=== PATIENT | male | born 1980 | race Caucasian/White ===

== ENCOUNTER → 2017-04-17 | Outpatient (REF) | payer OTHER ==
[~2017-04-17] MED LIST: AMIT50TA PO; DICY20TA11 PO; OMEP20CA3 PO; RANI15TA PO; TYLE167L PO; ZOFR20TA PO
[2017-04-17 21:32] LABS: MEAN CORPUSCULAR HEMOGLOBIN 28.9 pg (27.0-33.0); MEAN CORPUSCULAR HGB CONC 33.5 g/dl (32.0-36.5); MEAN CORPUSCULAR VOLUME 86.5 fl (80.0-96.0); PLATELET COUNT, AUTOMATED 219 10^3/uL (150-450); RED CELL DISTRIBUTION WIDTH 13.4 % (11.5-14.5); WHITE BLOOD COUNT 7.4 10^3/uL (4.0-10.0)
[2017-04-17 21:40] LABS: ANION GAP 6 MEQ/L (8-16); BLOOD UREA NITROGEN 16 MG/DL (7-18); CALCIUM LEVEL 8.9 MG/DL (8.5-10.1); CARBON DIOXIDE LEVEL 27 MEQ/L (21-32); CHLORIDE LEVEL 108 MEQ/L (98-107); CREATININE FOR GFR 1.14 MG/DL (0.70-1.30); GLOMERULAR FILTRATION RATE > 60.0 (>60); GLUCOSE, FASTING 91 MG/DL (70-105); POTASSIUM SERUM 3.9 MEQ/L (3.5-5.1); SODIUM LEVEL 141 MEQ/L (136-145)
== END ==
LOC: M LABDRWAD 20:53 → M LAB REF 20:53
PROVIDERS: ATTEND Podiatrist Foot & Ankle Surgery
DX: Z01.818 Encounter for other preprocedural examination (principal)

== ENCOUNTER 2017-05-09 08:42 | Day surgery (SDC) | payer OTHER ==
[~2017-05-09] VITALS: Ht 180.3 cm; Wt 100.2 kg
[~2017-05-09 08:42] MED LIST changes: +ALKATAB17 PO; +CELE1CAP4 PO; +GABA-279 PO; +TYLE500T78 PO
[2017-05-09] MEDS ORDERED: LR 1,000 ML IV ONE (09:00)
[2017-05-09] MEDS ORDERED: MIDAZOLAM INJ 2 MG/2 ML VIAL (J2250) As Ordered ONE (09:18)
[2017-05-09] MEDS ORDERED: PROPOFOL 200 MG/20 ML VIAL As Ordered ONE (09:18)
[2017-05-09] MEDS ORDERED: fentaNYL 100 MCG/2 ML INJECTION (J3010) As Ordered ONE (09:18)
[2017-05-09] MEDS ORDERED: LIDOCAINE 2% INJ 100 MG/5 ML SDV (FOR ANES.) As Ordered ONE (09:18)
[2017-05-09] MEDS ORDERED: BUPIVACAINE HCL 0.5% 30 ML VIAL As Ordered ONE (10:26)
[2017-05-09] MEDS ORDERED: LIDOCAINE 1% MDV 20ML VIAL As Ordered ONE ×2 (10:26→10:27)
[2017-05-09] MEDS ORDERED: dexameTHASONE 4 MG/ML 1ML VIAL (J1100) As Ordered ONE (10:27)
[2017-05-09] MEDS ORDERED: HYDR-3713 PO (11:46)
[2017-05-09] MEDS ORDERED: ONDANSETRON 4MG/2ML VIAL (J2405) As Ordered ONE (12:32)
[2017-05-09] MEDS ORDERED: METOCLOPRAMIDE INJ 10MG/2ML VIAL (J2765) As Ordered ONE (12:32)
[2017-05-09] MEDS ORDERED: PROPOFOL 500 MG/50 ML VIAL As Ordered ONE (12:35)
[2017-05-09] MEDS ORDERED: LIDOCAINE W/EPINEPHRINE 1% 20ML VIAL As Ordered ONE (13:38)
[2017-05-09] MEDS ORDERED: OXYMETAZOLINE NASAL SPRAY (AFRIN) As Ordered ONE (13:39)
[2017-05-09] MEDS ORDERED: METHYLENE BLUE 0.5% (5MG/ML) 10 ML AMP (PROVAYBLUE)(Q9968 PER 1MG) As Ordered ONE (13:39)
--- NOTE | 2017-05-09 14:26 | RO ---
DATE OF PROCEDURE: 05/09/2017 PREPROCEDURE DIAGNOSIS: Bilateral plantar fasciitis. POSTPROCEDURE DIAGNOSIS: Bilateral plantar fasciitis. PROCEDURE: Bilateral plantar fascial release with release of calcaneal nerve. SURGEON: Dr. Eric Burks VIROLOGY TEACHER: None. ANESTHESIA: Monitored anesthesia care. Preoperative injection of 30 mL of 1:1 mixture of 1% lidocaine plain and 1/2% Marcaine plain. ESTIMATED BLOOD LOSS: Minimal. INJECTABLES: 2 mL of Decadron/4 mg per liter and 8 mL of lidocaine plain. COMPLICATIONS: None. CONDITION: Stable. MATERIALS: #3-0 and #4-0 Vicryl and #4-0 nylon. Fausto Agustin is a 28-year-old male who presents to [facility] with complaints of chronic plantar fasciitis. He has undergone numerous conservative therapies without relief. He also complains of burning pain to his heel. He presents today for surgical correction. The patient site and side were identified and marked in preoperative holding area. Consent was reviewed and obtained. All risks, complications and alternatives to the procedure explained to the patient in detail and all questions were answered. DESCRIPTION OF PROCEDURE: The patient was brought to the operating room and placed on the operating room table in supine position. Monitored anesthesia care was delivered by the anesthesia department. Preoperative injection of 30 mL of 1:1 mixture of 1% lidocaine plain and 0.50% Marcaine plain were injected to both feet, 15 mL each. The patient received Ancef preoperatively. Tourniquets were applied to both ankles and inflated at 250 mmHg. An incision was drawn on the medial aspect of both heels and carried through with #15 blade. Dissection was carried down until the plantar fascia was identified. Bovie was used to maintain hemostasis. Using a #15 blade, the calcaneal nerve was transected at the medial margin of the calcaneus. The adhesions were freed using tenotomy scissors. The plantar fascia was identified and released approximately 2[address], leaving the lateral 1/3 intact. Additionally, adhesions were noted along the adductor hallucis muscle and these too were released. Once no further adhesions and tautness were able to be palpated, the site was irrigated with normal saline. Deep closure was performed on both sides with #3-0 and #4-0 Vicryl and skin closure with #4-0 nylon. 1 mL Decadron was injected. 8 mL of lidocaine were injected at the beginning of the case on the left foot in addition to the preoperative injection. Sterile dressings were applied. Tourniquets deflated. The patient was brought to the postanesthesia care unit (PACU) with vital signs stable and neurovascular status intact. He will be partial weight bearing in postoperative shoe. He will followup in the office in two days.
[2017-05-09 14:35] VITALS: BP 145/86
== END 2017-05-09 15:00 | disposition home or self-care (01) ==
LOC: M SDC 08:42
PROVIDERS: ATTEND Podiatrist Foot & Ankle Surgery
DX: M72.2 Plantar fascial fibromatosis (principal); K21.9 Gastro-esophageal reflux disease without esophagitis; M12.9 Arthropathy, unspecified; F41.9 Anxiety disorder, unspecified; G44.009 Cluster headache syndrome, unspecified, not intractable; R06.02 Shortness of breath; F12.90 Cannabis use, unspecified, uncomplicated; Z79.899 Other long term (current) drug therapy; Z72.0 Tobacco use
CPT/HCPCS: 28060; 64704; J0690; J1100; J2250; J2405; J2765; J3010; Q9968

== ENCOUNTER → 2017-09-13 | Outpatient (REF) | payer OTHER ==
[2017-09-13 20:01] LABS: BASO # 0.1 10^3/uL (0.0-0.2); EOS # 0.2 10^3/uL (0.0-0.50); EOS % 1.8 % (0.0-3.0); HEMATOCRIT 44.3 % (42.0-52.0); HEMOGLOBIN 15.4 g/dl (13.5-17.5); IMMATURE GRANULOCYTE % 0.5 % (0-3.0); LYMPH # 2.4 10^3/uL (1.5-4.5); LYMPH % 29.6 % (24.0-44.0); MEAN CORPUSCULAR HEMOGLOBIN 29.4 pg (27.0-33.0); MEAN CORPUSCULAR HGB CONC 34.8 g/dl (32.0-36.5); MEAN CORPUSCULAR VOLUME 84.5 fl (80.0-96.0); MONO # 0.6 10^3/uL (0.0-0.8); MONO % 7.3 % (0.0-5.0); NEUTROPHILS # 4.9 10^3/uL (1.8-7.7); NEUTROPHILS % 59.8 % (36.0-66.0); PLATELET COUNT, AUTOMATED 208 10^3/uL (150-450); RED BLOOD COUNT 5.24 10^6/uL (4.30-6.10); RED CELL DISTRIBUTION WIDTH 13.5 % (11.5-14.5); WHITE BLOOD COUNT 8.2 10^3/uL (4.0-10.0)
[2017-09-13 20:16] LABS: ALBUMIN 4.3 GM/DL (3.2-5.2); ALBUMIN/GLOBULIN RATIO 1.16 (1.00-1.93); ALKALINE PHOSPHATASE 68 U/L (45-117); ALT/SGPT 52 U/L (12-78); ANION GAP 8 MEQ/L (8-16); AST/SGOT 27 U/L (7-37); BILIRUBIN,TOTAL 0.4 MG/DL (0.2-1.0); BLOOD UREA NITROGEN 21 MG/DL (7-18); C REACTIVE PROTEIN QUANTITATIV 0.42 MG/DL (0.00-0.30); CALCIUM LEVEL 9.3 MG/DL (8.5-10.1); CARBON DIOXIDE LEVEL 27 MEQ/L (21-32); CHLORIDE LEVEL 109 MEQ/L (98-107); CPK CREATINE PHOSPHOKINASE 93 U/L (39-308); CREATININE FOR GFR 1.35 MG/DL (0.70-1.30); GLOMERULAR FILTRATION RATE > 60.0 (>60); GLUCOSE, FASTING 99 MG/DL (70-100); SODIUM LEVEL 144 MEQ/L (136-145)
[2017-09-13 20:23] LABS: ERYTHROCYTE SEDIMENTATION RATE 6 mm/hr (0-15)
[2017-09-15 14:09] LABS: ANTINUCLEAR ANTIBODIES DIRECT Negative (Negative); Lyme Disease IgG/IgM Antibodie <0.91 ISR (0.00-0.90); Lyme Disease IgM Ab Quantitati <0.80 index (0.00-0.79)
== END ==
LOC: M LAB REF 19:28
DX: G89.28 Other chronic postprocedural pain (principal)
CPT/HCPCS: 82550

== ENCOUNTER → 2018-03-27 | Outpatient (CLI) | payer OTHER ==
[2018-03-27 12:47] LABS: BASO # 0.1 10^3/uL (0.0-0.2); BASO % 1.1 % (0.0-1.0); EOS # 0.2 10^3/uL (0.0-0.50); EOS % 2.7 % (0.0-3.0); HEMATOCRIT 45.2 % (42.0-52.0); HEMOGLOBIN 15.5 g/dl (13.5-17.5); IMMATURE GRANULOCYTE % 0.2 % (0-3.0); LYMPH # 2.7 10^3/uL (1.5-4.5); MEAN CORPUSCULAR HEMOGLOBIN 29.6 pg (27.0-33.0); MEAN CORPUSCULAR HGB CONC 34.3 g/dl (32.0-36.5); MEAN CORPUSCULAR VOLUME 86.3 fl (80.0-96.0); MONO # 0.5 10^3/uL (0.0-0.8); MONO % 6.2 % (0.0-5.0); NEUTROPHILS # 4.5 10^3/uL (1.8-7.7); NEUTROPHILS % 55.8 % (36.0-66.0); PLATELET COUNT, AUTOMATED 192 10^3/uL (150-450); RED BLOOD COUNT 5.24 10^6/uL (4.30-6.10); WHITE BLOOD COUNT 8.1 10^3/uL (4.0-10.0)
[2018-03-27 12:57] LABS: ALBUMIN 4.1 GM/DL (3.2-5.2); ALBUMIN/GLOBULIN RATIO 1.37 (1.00-1.93); ALKALINE PHOSPHATASE 68 U/L (45-117); ALT/SGPT 54 U/L (12-78); ANION GAP 6 MEQ/L (8-16); AST/SGOT 24 U/L (7-37); BILIRUBIN,TOTAL 0.4 MG/DL (0.2-1.0); BLOOD UREA NITROGEN 19 MG/DL (7-18); C REACTIVE PROTEIN QUANTITATIV 0.34 MG/DL (0.00-0.30); CALCIUM LEVEL 9.4 MG/DL (8.5-10.1); CARBON DIOXIDE LEVEL 26 MEQ/L (21-32); CHLORIDE LEVEL 107 MEQ/L (98-107); COMPLEMENT C3 153 MG/DL (90-180); CREATININE FOR GFR 1.17 MG/DL (0.70-1.30); GLOMERULAR FILTRATION RATE > 60.0 (>60); GLUCOSE, FASTING 108 MG/DL (70-100); POTASSIUM SERUM 4.2 MEQ/L (3.5-5.1); RHEUMATOID FACTOR QUANT < 10.0 IU/ML (<15.0); SODIUM LEVEL 139 MEQ/L (136-145); TOTAL PROTEIN 7.1 GM/DL (6.4-8.2)
[2018-03-29 00:10] LABS: ANA (HEP2) Negative (.); SSA SJOGRENS A <0.2 AI (0.0-0.9); SSB SJOGRENS B <0.2 AI (0.0-0.9)
== END ==
LOC: M ADAMS 11:03
DX: M79.7 Fibromyalgia (principal); M25.552 Pain in left hip
CPT/HCPCS: 80053

== ENCOUNTER → 2018-04-12 | Outpatient (CLI) | payer OTHER | LOC: M PAIN 08:45 | DX: M54.5 Low back pain (principal); G89.29 Other chronic pain; M79.7 Fibromyalgia; M72.2 Plantar fascial fibromatosis; F41.9 Anxiety disorder, unspecified; K21.9 Gastro-esophageal reflux disease without esophagitis; F17.210 Nicotine dependence, cigarettes, uncomplicated; Z79.899 Other long term (current) drug therapy; Z86.69 Personal history of other diseases of the nervous system and sense organs | CPT/HCPCS: G0463 ==

== ENCOUNTER → 2018-05-02 | Outpatient (CLI) | payer OTHER | LOC: M RAD 13:06 | DX: M51.26 Other intervertebral disc displacement, lumbar region (principal) | CPT/HCPCS: 72148 ==

== ENCOUNTER → 2018-06-13 | Outpatient (CLI) | payer OTHER ==
[~2018-06-13] MED LIST changes: +BUPIVACAINE HCL 0.25% 10 ML VIAL As Ordered ONE; +BUPIVACAINE HCL 0.25% 30 ML VIAL As Ordered ONE; +GABA-1171 PO; -GABA-279 PO; +HYDR-3713 PO; +TRIAMCINOLONE ACETONIDE SUSP 40 MG/ML VIAL (J3301) As Ordered ONE; -ZOFR20TA PO; +ZOFR4TAB16 PO; +diazePAM 5 MG TAB As Ordered ONE; +oxyCODONE 5MG TAB As Ordered ONE
--- NOTE | 2018-07-01 00:45 | ECWPNPC ---
PATIENT NAME: SURESH COLLAZO : 1980 GENDER: MALE VISIT DATE: 06/13/2018 DISCHARGE DATE: 06/13/18 1523 VISIT LOCKED DATE TIME: PHYSICIAN: CHANDA PULLIAM MD RESOURCE: CHANDA PULLIAM MD HISTORY OF PRESENT ILLNESS HISTORY OF PRESENT ILLNESS: PAIN THE PATIENT DESCRIBES THE PAIN... FALL RISK SCREENING: SCREENING :TWO OR MORE FALLS WITHOUT INJURY IN THE PAST YEAR CURRENT MEDICATIONS TAKING WELLBUTRIN XL 150 MG TABLET EXTENDED RELEASE 24 HOUR 1 TABLET IN THE MORNING ORALLY ONCE A DAY, NOTES: 5 DAYS AGO TAKING GABAPENTIN 600 MG TABLET 1 TABLET ORALLY BEFORE BEDTIME, NOTES: 5 DAYS AGO TAKING SKELAXIN 800 MG TABLET 1 TABLET ORALLY THREE TIMES A DAY, NOTES: 2 DAYS AGO TAKING CELECOXIB 200 MG CAPSULE 1 CAPSULE WITH FOOD ORALLY BID, NOTES: 5DAYS AGO TAKING ANTACID 500 MG TABLET CHEWABLE 1 TABLET ORALLY ONCE A DAY, NOTES: NONE RECENTLY TAKING ACETAMINOPHEN 325 MG TABLET 2 TABLETS NEEDED ORALLY FOUR TIMES DAILY NEEDED, NOTES: 2 DAYS AGO TAKING LOUIE-SELTZER EXTRA STRENGTH 500 MG TABLET EFFERVESCENT 1 TABLET NEEDED ORALLY EVERY 6 HRS, NOTES: 06/12/17@0800 NOT-TAKING SILDENAFIL CITRATE 50 MG TABLET 1 TABLET NEEDED ORALLY ONCE A DAY, NOTES: NONE RECENTLY DISCONTINUED VENTOLIN HFA 108 (90 BASE) MCG/ACT AEROSOL SOLUTION 2 PUFFS NEEDED INHALATION EVERY 6 HRS DISCONTINUED OMEPRAZOLE 20 MG CAPSULE DELAYED RELEASE 1 CAPSULE ORALLY ONCE A DAY DISCONTINUED ELAVIL 25 MG TABLET 1 TAB(S) ORAL DAILY MEDICATION LIST REVIEWED AND RECONCILED WITH THE PATIENT PAST MEDICAL HISTORY FIBROMYALGIA GERD ANXIETY IRRITABLE BOWEL SYNDROME NEUROPATHY PLANTAR FASCITIS CLUSTER HEADACHES ALLERGIES N.K.D.A. SURGICAL HISTORY PLANTAR FASCITIS RELEASE 04/2017 FAMILY HISTORY FATHER: ALIVE, DIAGNOSED WITH DIABETES, HYPERTENSION MOTHER: ALIVE, BREAST CANCER, DIAGNOSED WITH CANCER 4 BROTHER(S) , 1 SISTER(S) - HEALTHY. 3 SON(S) - HEALTHY. NO KNOWN FAMILY HISTORY OF ANY UROLOGICALLY RELATED DISEASES/CANCERS. SOCIAL HISTORY GENERAL: TOBACCO USE ARE YOU A:CURRENT SMOKER ARE YOU INTERESTED IN QUITTING?THINKING ABOUT QUITTING WORKING WITH PCP TO TRY AND QUIT. DECLINED INFORMATION ON STOP SMOKING CLASSES. 04/12/18 0962 JS COUNSELED THE PATIENT ON SMOKING CESSATION, EDUCATION [id number]/17/2019 HOW MANY CIGARETTES A DAY DO YOU SMOKE?11-20 HOW SOON AFTER YOU WAKE UP DO YOU SMOKE YOUR FIRST CIGARETTE?AFTER 60 MIN HOW OFTEN DO YOU SMOKE CIGARETTES?EVERY DAY PATIENT COUNSELED ON THE DANGERS OF TOBACCO USE AND URGED TO QUIT:06/13/2018 ALCOHOL SCREENING DID YOU HAVE A DRINK CONTAINING ALCOHOL IN THE PAST YEAR?NO POINTS0 INTERPRETATIONNEGATIVE RECREATIONAL DRUG USE MARIJUANA USE 3 DAYS WEEK. CAFFEINE 3-4 SODAS DAILY. SEXUAL HX HAD SEX IN THE LAST 12 MONTHS (VAGINAL, ORAL, OR ANAL)?YES WITHWOMEN ONLY USE PROTECTION?NO HAVE YOU EVER HAD AN STD?NO SABIANIST NO CONFUCIANISM BELIEFS THAT WOULD IMPACT HEALTH CARE. LANGUAGE ARABIC. DOMESTIC VIOLENCE NONE. OCCUPATION: UNEMPLOYED. DIET: REGULAR. EXERCISE: NO REGULAR EXERCISE. MARITAL STATUS: . PAIN CLINIC PFS, CLERGY, PUBLIC HEALTH REFERRALS HAS THE PATIENT BEEN EDUCATED REGARDING HIS/HER PLAN OF CARE?YES HAS THE PATIENT BEEN EDUCATED REGARDING PAIN, THE RISK FOR PAIN, THE IMPORTANCE OF EFFECTIVE PAIN MANAGEMENT, AND THE PAIN ASSESSMENT PROCESS?YES ADVANCE DIRECTIVE ADVANCE DIRECTIVE DISCUSSED WITH PATIENT:YES DECLINED HCP INFORMATION. 04/12/18925 LILLIE HCP INFORMATION GIVEN TO PT. REVIEWED WITH PATIENT 04/12/18925 . HOSPITALIZATION/MAJOR DIAGNOSTIC PROCEDURE NO HOSPITALIZATION HISTORY. REVIEW OF SYSTEMS REVIEWED BY: PROVIDER: . CONSTITUTIONAL: ANY CHANGE IN YOUR MEDICAL CONDITION? NO . CHILLS NO . FEVER NO . INFECTION: DO YOU HAVE NEW INFECTIONS? NO . DO YOU HAVE HISTORY OF MRSA? NO . MUSCULOSKELETAL: ANY NEW PATTERNS OF PAIN OR NUMBNESS? YES SHOULDERS AND BUTTOCKS . GASTROENTEROLOGY: ANY NEW CHANGE IN BOWEL CONTROL? NO . GENITOURINARY: ANY NEW CHANGE IN BLADDER CONTROL? NO . IS THERE A CHANCE YOU COULD BE ? NO . HEMATOLOGY/LYMPH: DO YOU TAKE ANY BLOOD THINNERS? (FOR EXAMPLE- COUMADIN, PLAVIX, AGGRENOX, PLATEL, PRADAXA, OR XARELTO) NO . WHEN WAS YOUR LAST DOSE? DATE: TIME: . NEUROLOGY: HAVE YOU FALLEN IN THE PAST 12 MONTHS? YES . ANY NEW EXTREMITY NUMBNESS OR WEAKNESS? YES . CARDIOLOGY: DO YOU HAVE A PACEMAKER OR DEFIBRILLATOR? NO . RESPIRATORY: HAVE YOU BEEN SICK IN THE PAST WEEK? NO . FEVER NO . FLU LIKE SYMPTOMS? NO . COUGH NO . INTEGUMENTARY: DO YOU HAVE ANY RASHES OR OPEN SORES? NO . ALLERGIC/IMMUNO: ARE YOU ALLERGIC TO IV DYE? NO . ANY NEW ALLERGIES? NO . PSYCHIATRIC: DO YOU HAVE THOUGHTS OF HURTING YOURSELF OR SOMEONE ELSE? NO . ARE YOU ABUSED, NEGLECTED, OR IN AN UNSAFE ENVIRONMENT? NO . ENDOCRINOLOGY: ARE YOU DIABETIC? NO . OTHER: DO YOU NEED ANY PRESCRIPTIONS? NO . IF YES, PLEASE LIST: ____ . ANY NEW PROBLEMS WITH YOUR MEDICATIONS? NO . WHEN DID YOU LAST DRINK? 1000 . WHAT DID YOU LAST DRINK? ____WATER,TEA . NAME OF PERSON DRIVING YOU HOME? ____TRICIA . DO YOU HAVE ANY OTHER QUESTIONS OR CONCERNS YES NEW PAIN IN BOTH SHOULDERS ANDBOTH LEGS BELOW THE BUTTOCKS . VITAL SIGNS WT 225.8 LBS, HT 5'11", BMI 31.49 INDEX, BP 141/73 MM HG, HR 100 /MIN, RR 18 /MIN, TEMP 98.6 F, OXYGEN SAT % 95%, NA INITIALS AW 1147. ASSESSMENTS MYALGIA, OTHER SITE - M79.18 (PRIMARY) PROCEDURES PN TRIGGER POINT INJECTION WITH STEROIDS PRE PROCEDURE DIAGNOSIS 1. MYALGIA 2. PAIN AT BILATERAL THORACIC AREA POST PROCEDURE DIAGNOSIS 1. MYALGIA 2. PAIN AT BILATERAL THORACIC AREA PROCEDURE TRIGGER POINT INJECTION AT BILATERAL THORACIC AREA SURGEON DR. CHANDA PULLIAM E BUSINESS MANAGER NONE ANESTHESIA LOCAL PRE PROCEDURE NOTE THE PATIENT HAS A HISTORY OF CHRONIC PAIN AT THE RIGHT AND LEFT THORACIC AREA. I EVALUATE THE PATIENT AND REVIEWED THE CHART. THERE IS EVIDENCE OF BANDS OF TISSUE WITH RESTRICTION OF MOVEMENT AND PRESENCE OF TRIGGER POINT AT THE AFFECTED AREA. I WENT OVER THE RISKS, ALTERNATIVES, AND BENEFITS ASSOCIATED WITH THIS PROCEDURE. THE PATIENT WOULD LIKE TO PROCEED AND GIVE CONSENT TO PERFORMED THE PROCEDURE. THE PATIENT DENIES UNEXPLAINABLE WEIGHT LOSS, FEVER, CHILLS, OR NEW CHANGES IN URINARY OR BOWEL CONTROL DESCRIPTION OF PROCEDURE THE PATIENT WAS BROUGHT TO THE PROCEDURE ROOM AND PLACED IN THE SITTING POSITION. THE AREA WAS CLEANED WITH ALCOHOL. THE PROCEDURE WAS DONE USING ASEPTIC STERILE TECHNIQUE. I CHECKED LATERALITY AND THE LEVEL WHERE THE PROCEDURE WAS GOING TO BE PERFORMED WITH THE PATIENT AND THE SUPPORTING STAFF AT THE MOMENT OF THE TIME OUT IN THE PROCEDURE ROOM. USING A 25-GAUGE NEEDLE, TRIGGER POINTS WERE INJECTED AT THE RIGHT AND LEFT THORACIC AREA WITH A TOTAL OF 40 ML OF BUPIVACAINE 0.25% AND KENALOG 40 MG. THERE WAS NO EVIDENCE OF BLOOD, PARESTHESIA OR CEREBROSPINAL FLUID DURING THE PROCEDURE. THE PATIENT WAS SENT TO THE RECOVERY ROOM. THE PATIENT WAS MOVING THE EXTREMITIES AND DOING WELL. THERE WAS NO COMPLICATION DURING THE PROCEDURE POST PROCEDURE NOTE THE PATIENT WILL BE SEEN IN A FOLLOW UP IN THE NEXT FEW WEEKS. INSTRUCTIONS WERE GIVEN, QUESTIONS WERE ANSWERED, AND THE PATIENT EXPRESSED UNDERSTANDING AND AGREES WITH THE PLAN. I, MARIPOSA LU, DOCUMENTED THE ABOVE INFORMATION ACTING A SCRIBE FOR DR. PULLIAM. I HAVE REVIEWED THE ABOVE DOCUMENT, WRITTEN BY MARIPOSA HAMPTONIBCarlos AND I VERIFY THAT IT IS ACCURATE. PROCEDURE CODES 80142 INJ TRIGGER POINT / [facility] DISPOSITION & COMMUNICATION FOLLOW UP 3 WEEKS ELECTRONICALLY SIGNED BY CHANDA PULLIAM MD, MD ON 06/30/2018 AT 05:48 PM EST DISCLAIMER : THIS IS A VISIT SUMMARY EXTRACTED FROM THE [employer] CHART. IT IS NOT A COPY OF THE [employer] PROGRESS NOTE. MARTHA
== END ==
LOC: M PAIN 11:45
PROVIDERS: ATTEND Anesthesiology
DX: M79.18 Myalgia, other site (principal); M54.6 Pain in thoracic spine; F41.9 Anxiety disorder, unspecified; F17.210 Nicotine dependence, cigarettes, uncomplicated; Z79.899 Other long term (current) drug therapy
CPT/HCPCS: 20552; J3301

== ENCOUNTER → 2018-08-09 | Outpatient (CLI) | payer OTHER ==
[~2018-08-09] MED LIST changes: -BUPIVACAINE HCL 0.25% 10 ML VIAL As Ordered ONE; -BUPIVACAINE HCL 0.25% 30 ML VIAL As Ordered ONE; -TRIAMCINOLONE ACETONIDE SUSP 40 MG/ML VIAL (J3301) As Ordered ONE; -diazePAM 5 MG TAB As Ordered ONE; -oxyCODONE 5MG TAB As Ordered ONE
--- NOTE | 2018-08-23 01:42 | ECWPNPC ---
PATIENT NAME: SURESH COLLAZO : 1980 GENDER: MALE VISIT DATE: 08/09/2018 DISCHARGE DATE: 08/09/18 1502 VISIT LOCKED DATE TIME: PHYSICIAN: CHANDA PULLIAM MD RESOURCE: CHANDA PULLIAM MD REASON FOR APPOINTMENT 1. POST TPI HISTORY OF PRESENT ILLNESS HISTORY OF PRESENT ILLNESS: PAIN THE PATIENT DESCRIBES THE PAIN... 37 YEAR OLD MALE PATIENT WITH A HISTORY OF CHRONIC THORACIC PAIN. THE PATIENT DESCRIBES THE PAIN SEVERE, ACHING, SORE, TENDER, SHARP, STABBING, AND CONTINUOUS WITH A PAIN SCORE OF 5-8/10 DEPENDING ON PHYSICAL ACTIVITY. THE PATIENT SAYS THAT HIS PAIN STARTS IN HIS THORACIC AREA AND RADIATES AROUND TO HIS LEFT SIDE AND LEFT ARM. THE PATIENT SAYS THAT HE SOMETIMES HAS DIFFICULTY BREATHING DUE TO THIS PAIN. THE PATIENT WAS HERE FOR A TRIGGER POINT INJECTION ON 06/13/2018 AND REPORTS HAVING MORE THAN 50% PAIN RELIEF FOR ALMOST 2 MONTHS. PATIENT DENIES UNEXPLAINABLE WEIGHT LOSS, FEVER, CHILLS, NEW CHANGES ON HIS URINARY OR BOWEL CONTROL. FALL RISK SCREENING: SCREENING : NO FALLS IN THE PAST YEAR. CURRENT MEDICATIONS TAKING WELLBUTRIN XL 150 MG TABLET EXTENDED RELEASE 24 HOUR 1 TABLET IN THE MORNING ORALLY ONCE A DAY TAKING GABAPENTIN 600 MG TABLET 1 TABLET ORALLY BEFORE BEDTIME TAKING SKELAXIN 800 MG TABLET 1 TABLET ORALLY THREE TIMES A DAY TAKING CELECOXIB 200 MG CAPSULE 1 CAPSULE WITH FOOD ORALLY BID TAKING ANTACID 500 MG TABLET CHEWABLE 1 TABLET ORALLY ONCE A DAY TAKING ACETAMINOPHEN 325 MG TABLET 2 TABLETS NEEDED ORALLY FOUR TIMES DAILY NEEDED TAKING LOUIE-SELTZER EXTRA STRENGTH 500 MG TABLET EFFERVESCENT 1 TABLET NEEDED ORALLY EVERY 6 HRS TAKING NAPROXEN 500 MG TABLET 1 TABLET WITH FOOD OR MILK NEEDED ORALLY EVERY 12 HRS TAKING MELOXICAM 15 MG TABLET 1 TABLET ORALLY ONCE A DAY TAKING RANITIDINE HCL 75 MG TABLET 1 TABLET NEEDED ORALLY ONCE A DAY NOT-TAKING SILDENAFIL CITRATE 50 MG TABLET 1 TABLET NEEDED ORALLY ONCE A DAY, NOTES: NONE RECENTLY MEDICATION LIST REVIEWED AND RECONCILED WITH THE PATIENT PAST MEDICAL HISTORY FIBROMYALGIA GERD ANXIETY IRRITABLE BOWEL SYNDROME NEUROPATHY PLANTAR FASCITIS CLUSTER HEADACHES ALLERGIES N.K.D.A. SURGICAL HISTORY PLANTAR FASCITIS RELEASE 04/2017 FAMILY HISTORY FATHER: ALIVE, DIAGNOSED WITH DIABETES, HYPERTENSION MOTHER: ALIVE, BREAST CANCER, LUNG CANCER, CANCER 4 BROTHER(S) , 1 SISTER(S) - HEALTHY. 3 SON(S) - HEALTHY. NO KNOWN FAMILY HISTORY OF ANY UROLOGICALLY RELATED DISEASES/CANCERS. MATERNAL AUNTS (2) LUPUS. SOCIAL HISTORY GENERAL: TOBACCO USE ARE YOU A:CURRENT SMOKER ARE YOU INTERESTED IN QUITTING?THINKING ABOUT QUITTING WORKING WITH PCP TO TRY AND QUIT. DECLINED INFORMATION ON STOP SMOKING CLASSES. 04/12/18 0948 JS COUNSELED THE PATIENT ON SMOKING CESSATION, EDUCATION [id number]/17/2019 HOW MANY CIGARETTES A DAY DO YOU SMOKE?11-20 HOW SOON AFTER YOU WAKE UP DO YOU SMOKE YOUR FIRST CIGARETTE?AFTER 60 MIN HOW OFTEN DO YOU SMOKE CIGARETTES?EVERY DAY PATIENT COUNSELED ON THE DANGERS OF TOBACCO USE AND URGED TO QUIT:06/13/2018 LATEX QUESTIONNAIRE LATEX ALLERGY : HAVE YOU EVER DEVELOPED ANY TYPE OF REACTION AFTER HANDLING LATEX PRODUCTS SUCH RUBBER GLOVES, CONDOMS, DIAPHRAGMS, BALLOONS, SOCKS, OR UNDERWEAR?NO LATEX ALLERGY : HAVE YOU EVER DEVELOPED ANY TYPE OF REACTION DURING OR AFTER DENTAL APPOINTMENT, VAGINAL/RECTAL EXAMINATION, SURGICAL PROCEDURE, OR ANY OTHER EXPOSURE?NO LATEX RISK : HAVE YOU EVER HAD ANY DIFFICULTY BREATHING OR HIVES AFTER EATING OR HANDLING ANY FRUITS, OR VEGETABLES; SUCH KIWI, BANANAS, STONE FRUITS, OR CHESTNUTSNO LATEX RISK : DO YOU HAVE A PREVIOUS PERSONAL HISTORY OF MORE THAN NINE SURGERIES, SPINA BIFIDA, OR REPEATED CATHERTIZATIONS? NO LATEX RISK : ARE YOU FREQUENTLY EXPOSED TO LATEX PRODUCTS IN YOUR OCCUPATION?NO DATE ASKED : 07/30/2018 ALCOHOL SCREENING DID YOU HAVE A DRINK CONTAINING ALCOHOL IN THE PAST YEAR?NO POINTS0 INTERPRETATIONNEGATIVE RECREATIONAL DRUG USE DRUG USE? PATIENT STATES HE STOPPED SMOKING MARIJUANA 4-6 MONTHS AGO CAFFEINE 3-4 SODAS DAILY. SEXUAL HX HAD SEX IN THE LAST 12 MONTHS (VAGINAL, ORAL, OR ANAL)?YES WITHWOMEN ONLY USE PROTECTION?NO HAVE YOU EVER HAD AN STD?NO ALEVISM NO RASTAFARI BELIEFS THAT WOULD IMPACT HEALTH CARE. LANGUAGE INDONESIAN. DOMESTIC VIOLENCE NONE. OCCUPATION: UNEMPLOYED. DIET: REGULAR. EXERCISE: NO REGULAR EXERCISE. MARITAL STATUS: . PAIN CLINIC PFS, CLERGY, PUBLIC HEALTH REFERRALS HAS THE PATIENT BEEN EDUCATED REGARDING HIS/HER PLAN OF CARE?YES HAS THE PATIENT BEEN EDUCATED REGARDING PAIN, THE RISK FOR PAIN, THE IMPORTANCE OF EFFECTIVE PAIN MANAGEMENT, AND THE PAIN ASSESSMENT PROCESS?YES ADVANCE DIRECTIVE ADVANCE DIRECTIVE DISCUSSED WITH PATIENT:YES DECLINED HCP INFORMATION AND ASSISTANCE WITH HCP FORM. 08/09/18 REVIEWED WITH PATIENT 04/12/18 2119 JSREVIEWED WITH PATIENT 08/09/18 7090 BV. HOSPITALIZATION/MAJOR DIAGNOSTIC PROCEDURE NO HOSPITALIZATION HISTORY. REVIEW OF SYSTEMS REVIEWED BY: PROVIDER: CHANDA PULLIAM MD . CONSTITUTIONAL: ANY CHANGE IN YOUR MEDICAL CONDITION? NO . CHILLS NO . FEVER NO . INFECTION: DO YOU HAVE NEW INFECTIONS? NO . DO YOU HAVE HISTORY OF MRSA? NO . MUSCULOSKELETAL: ANY NEW PATTERNS OF PAIN OR NUMBNESS? YES, PT STATES HE HAD CHEST PAIN YESTERDAY THAT SEEMS TO RESOLVED OVERNIGHT, HOWEVER THIS MORNING WOKE UP WITH INTENSE MID-UPPER BACK PAIN AND LEFT SHOULDER. PT HAS COMPLAINED OF NEW NUMBNESS/TINGLING IN LEFT HAND. STATES NUMBNESS IS INTERMITTENT. . GASTROENTEROLOGY: ANY NEW CHANGE IN BOWEL CONTROL? NO . GENITOURINARY: ANY NEW CHANGE IN BLADDER CONTROL? NO . IS THERE A CHANCE YOU COULD BE ? NO . HEMATOLOGY/LYMPH: DO YOU TAKE ANY BLOOD THINNERS? (FOR EXAMPLE- COUMADIN, PLAVIX, AGGRENOX, PLATEL, PRADAXA, OR XARELTO) NO . WHEN WAS YOUR LAST DOSE? DATE: TIME: . NEUROLOGY: HAVE YOU FALLEN IN THE PAST 12 MONTHS? NO . ANY NEW EXTREMITY NUMBNESS OR WEAKNESS? NO . CARDIOLOGY: DO YOU HAVE A PACEMAKER OR DEFIBRILLATOR? NO . RESPIRATORY: HAVE YOU BEEN SICK IN THE PAST WEEK? NO . FEVER NO . FLU LIKE SYMPTOMS? NO . COUGH NO . INTEGUMENTARY: DO YOU HAVE ANY RASHES OR OPEN SORES? NO . ALLERGIC/IMMUNO: ARE YOU ALLERGIC TO IV DYE? NO . ANY NEW ALLERGIES? NO . PSYCHIATRIC: DO YOU HAVE THOUGHTS OF HURTING YOURSELF OR SOMEONE ELSE? NO . ARE YOU ABUSED, NEGLECTED, OR IN AN UNSAFE ENVIRONMENT? NO . ENDOCRINOLOGY: ARE YOU DIABETIC? NO . OTHER: DO YOU NEED ANY PRESCRIPTIONS? NO . IF YES, PLEASE LIST: ____ . ANY NEW PROBLEMS WITH YOUR MEDICATIONS? NO . WHEN DID YOU LAST EAT? ____ . WHEN DID YOU LAST DRINK? ____ . WHAT DID YOU LAST DRINK? ____ . NAME OF PERSON DRIVING YOU HOME? ____ . DO YOU HAVE ANY OTHER QUESTIONS OR CONCERNS NO . VITAL SIGNS WT 228.2 LBS, HT 71 IN, BMI 31.82 INDEX, BP 116/93 MM HG, HR 93 /MIN, RR 18 /MIN, TEMP 97.0 F, OXYGEN SAT % 95%, NA INITIALS SC 13:13, REVIEWED BY: BV. EXAMINATION GENERAL EXAMINATION: PATIENT IS ALERT O X 3 AND COOPERATIVE. TENDERNESS IN THE THORACIC AREA. PRESENCE OF TRIGGER POINTS AND BANDS OF TISSUE WITH RESTRICTION OF MOVEMENT OF THE BACK. ASSESSMENTS MYALGIA, OTHER SITE - M79.18 (PRIMARY) R/O THORACIC RADICULOPATHYR/O CERVICAL RADICULOPATHY. TREATMENT MYALGIA, OTHER SITE CLINICAL NOTES: WE DISCUSSED SEVERAL ISSUES WITH MR. COLLAZO'S PAIN MANAGEMENT CASE. DUE TO THE TRIGGER POINTS, BANDS OF TISSUE, AND RESTRICTION OF MOVEMENT, I WOULD LIKE TO MOVE FORWARD WITH A TRIGGER POINT INJECTION AT THIS TIME. WE DISCUSSED THE BENEFITS, RISKS, AND ALTERNATIVES OF THE INJECTION AND THE PATIENT WOULD LIKE TO PROCEED. I WILL ALSO START THE PATIENT ON TIZANIDINE AND TORADOL TO AID IN PAIN RELIEF. I WILL ORDER A THORACIC AND CERVICAL MRI DUE TO THE PATIENT HAVING RADICULAR SYMPTOMS TO HIS LEFT SIDE AND DOWN HIS LEFT ARM. I WILL ALSO REFER THE PATIENT TO RHEUMATOLOGY AND NEUROLOGY FOR FURTHER EVALUATION. THE PATIENT WILL FOLLOW UP A FEW WEEKS AFTER THE INJECTION. INSTRUCTIONS WERE GIVEN, QUESTIONS WERE ANSWERED, PATIENT REPORTS UNDERSTANDING AND AGREES WITH THE PLAN. I, MARIPOSA LU, DOCUMENTED THE ABOVE INFORMATION ACTING A SCRIBE FOR DR. PULLIAM. I HAVE REVIEWED THE ABOVE DOCUMENT, WRITTEN BY MARIPOSA TERRELL AND I VERIFY THAT IT IS ACCURATE. . OTHERS START TIZANIDINE HCL TABLET, 2 MG, 1 TABLET NEEDED, ORALLY FOR SPASMS AND PAIN, THREE TIMES A DAY MDD3, 7 DAY(S), 21, REFILLS 0 START KETOROLAC TROMETHAMINE TABLET, 10 MG, 1 TABLET WITH FOOD OR MILK NEEDED, ORALLY FOR PAIN, EVERY 8 HRS MDD3, 5 DAY(S), 15, REFILLS 0 PREVENTIVE MEDICINE PAIN CLINIC TEACHING: MEDICATIONS PT GIVEN WRITTEN AND VERBAL EDUCATION ON STARTING TIZANIDINE AND TORADOL. PT VERBALIZES UNDERSTANDING OF ALL EDUCATION. MARCO ORNELAS 08/09/2018 3:03:59 PM > . PROCEDURE TEACHING PT GIVEN WRITTEN AND VERBAL PRE-PROCEDURE INSTRUCTIONS. PT VERBALIZES UNDERSTANDING OF ALL INSTRUCTIONS. MARCO ORNELAS 08/09/2018 3:04:25 PM > . PROCEDURE CODES FA211 ESTABILISHED PATIENT [facility] CHARGE [id number] CURRENT MEDS W/DOSAGES DOCUMENTED [id number] PAIN ASSESS POS TOOL F/U PLAN DOC DISPOSITION & COMMUNICATION FOLLOW UP 3 WEEKS ELECTRONICALLY SIGNED BY CHANDA PULLIAM MD, MD ON 08/22/2018 AT 09:20 AM EDT DISCLAIMER : THIS IS A VISIT SUMMARY EXTRACTED FROM THE [employer] CHART. IT IS NOT A COPY OF THE [employer] PROGRESS NOTE. MTDD
== END ==
LOC: M PAIN 12:45
PROVIDERS: ATTEND Anesthesiology
DX: M79.18 Myalgia, other site (principal); M54.6 Pain in thoracic spine; F41.9 Anxiety disorder, unspecified; F17.210 Nicotine dependence, cigarettes, uncomplicated; Z79.899 Other long term (current) drug therapy; Z86.69 Personal history of other diseases of the nervous system and sense organs

== ENCOUNTER → 2018-09-04 | Outpatient (CLI) | payer OTHER ==
--- NOTE | 2018-09-23 00:38 | ECWPNPC ---
PATIENT NAME: SURESH COLLAZO : 1980 GENDER: MALE VISIT DATE: 09/04/2018 DISCHARGE DATE: 09/04/18928 VISIT LOCKED DATE TIME: PHYSICIAN: CHANDA PULLIAM MD RESOURCE: CHANDA PULLIAM MD REASON FOR APPOINTMENT 1. THORACIC AND SHOULDER HISTORY OF PRESENT ILLNESS HISTORY OF PRESENT ILLNESS: PAIN THE PATIENT DESCRIBES THE PAIN... 37 YEAR OLD MALE PATIENT WITH A HISTORY OF CHRONIC THORACIC PAIN. THE PATIENT DESCRIBES THE PAIN ACHING, SHARP, STABBING, SHOOTING, AND CONTINUOUS WITH A PAIN SCORE OF 6-9/10 DEPENDING ON PHYSICAL ACTIVITY. THE PATIENT SAYS HIS PAIN IS IN HIS THORACIC AREA WELL THE NECK AND LEFT SHOULDER. THE PATIENT SAYS HE HAS HAD THIS PAIN FOR MANY YEARS. THE PATIENT SAYS HE HAS DIFFICULTY DOING DAILY ACTIVITIES SUCH COOKING AND CLEANING DUE TO THIS PAIN. THE PATIENT HAS RECEIVED TRIGGER POINT INJECTIONS IN THE PAST AND SAYS THAT THEY HAVE HELPED. THE PATIENT IS CURRENTLY USING TORADOL AND TIZANIDINE TO AID IN PAIN RELIEF. THE PATIENT SAYS THAT HE IS GOING TO BE TRAVELING FOR A WEEK THIS SUMMER AND IS CONCERNED ABOUT AN INCREASE IN PAIN FOLLOWING THE TRAVEL. PATIENT DENIES UNEXPLAINABLE WEIGHT LOSS, FEVER, CHILLS, NEW CHANGES ON HIS URINARY OR BOWEL CONTROL. FALL RISK SCREENING: SCREENING :NO FALLS REPORTED IN THE LAST YEAR CURRENT MEDICATIONS TAKING TIZANIDINE HCL 2 MG TABLET 1 TABLET NEEDED ORALLY FOR SPASMS AND PAIN THREE TIMES A DAY MDD3 TAKING KETOROLAC TROMETHAMINE 10 MG TABLET 1 TABLET WITH FOOD OR MILK NEEDED ORALLY FOR PAIN EVERY 8 HRS MDD3 TAKING WELLBUTRIN XL 150 MG TABLET EXTENDED RELEASE 24 HOUR 1 TABLET IN THE MORNING ORALLY ONCE A DAY TAKING GABAPENTIN 600 MG TABLET 1 TABLET ORALLY BEFORE BEDTIME TAKING CELECOXIB 200 MG CAPSULE 1 CAPSULE WITH FOOD ORALLY BID TAKING ANTACID 500 MG TABLET CHEWABLE 1 TABLET ORALLY ONCE A DAY, NOTES: NEEDED TAKING ACETAMINOPHEN 325 MG TABLET 2 TABLETS NEEDED ORALLY FOUR TIMES DAILY NEEDED TAKING LOUIE-SELTZER EXTRA STRENGTH 500 MG TABLET EFFERVESCENT 1 TABLET NEEDED ORALLY EVERY 6 HRS, NOTES: NEEDED TAKING NAPROXEN 500 MG TABLET 1 TABLET WITH FOOD OR MILK NEEDED ORALLY EVERY 12 HRS TAKING MELOXICAM 15 MG TABLET 1 TABLET ORALLY ONCE A DAY TAKING RANITIDINE HCL 75 MG TABLET 1 TABLET NEEDED ORALLY ONCE A DAY TAKING OMEPRAZOLE 20 MG CAPSULE DELAYED RELEASE 1 CAPSULE ORALLY ONCE A DAY TAKING SERTRALINE HCL 25 MG TABLET 1 TABLET ORALLY ONCE A DAY NOT-TAKING SILDENAFIL CITRATE 50 MG TABLET 1 TABLET NEEDED ORALLY ONCE A DAY, NOTES: NONE RECENTLY DISCONTINUED SKELAXIN 800 MG TABLET 1 TABLET ORALLY THREE TIMES A DAY MEDICATION LIST REVIEWED AND RECONCILED WITH THE PATIENT PAST MEDICAL HISTORY FIBROMYALGIA GERD ANXIETY IRRITABLE BOWEL SYNDROME NEUROPATHY PLANTAR FASCITIS CLUSTER HEADACHES ALLERGIES N.K.D.A. SURGICAL HISTORY PLANTAR FASCITIS RELEASE 04/2017 FAMILY HISTORY FATHER: ALIVE, DIAGNOSED WITH DIABETES, HYPERTENSION MOTHER: ALIVE, BREAST CANCER, LUNG CANCER, CANCER 4 BROTHER(S) , 1 SISTER(S) - HEALTHY. 3 SON(S) - HEALTHY. NO KNOWN FAMILY HISTORY OF ANY UROLOGICALLY RELATED DISEASES\/CANCERS. \N\NMATERNAL AUNTS (2) LUPUS. SOCIAL HISTORY GENERAL: TOBACCO USE ARE YOU A:CURRENT SMOKER ARE YOU INTERESTED IN QUITTING?THINKING ABOUT QUITTING WORKING WITH PCP TO TRY AND QUIT. DECLINED INFORMATION ON STOP SMOKING CLASSES. 04/12/18 0925 JS COUNSELED THE PATIENT ON SMOKING CESSATION, EDUCATION [id number]/17/2019 HOW MANY CIGARETTES A DAY DO YOU SMOKE?11-20 HOW SOON AFTER YOU WAKE UP DO YOU SMOKE YOUR FIRST CIGARETTE?AFTER 60 MIN HOW OFTEN DO YOU SMOKE CIGARETTES?EVERY DAY PATIENT COUNSELED ON THE DANGERS OF TOBACCO USE AND URGED TO QUIT:06/13/2018 LATEX QUESTIONNAIRE LATEX ALLERGY : HAVE YOU EVER DEVELOPED ANY TYPE OF REACTION AFTER HANDLING LATEX PRODUCTS SUCH RUBBER GLOVES, CONDOMS, DIAPHRAGMS, BALLOONS, SOCKS, OR UNDERWEAR?NO LATEX ALLERGY : HAVE YOU EVER DEVELOPED ANY TYPE OF REACTION DURING OR AFTER DENTAL APPOINTMENT, VAGINAL/RECTAL EXAMINATION, SURGICAL PROCEDURE, OR ANY OTHER EXPOSURE?NO LATEX RISK : HAVE YOU EVER HAD ANY DIFFICULTY BREATHING OR HIVES AFTER EATING OR HANDLING ANY FRUITS, OR VEGETABLES; SUCH KIWI, BANANAS, STONE FRUITS, OR CHESTNUTSNO LATEX RISK : DO YOU HAVE A PREVIOUS PERSONAL HISTORY OF MORE THAN NINE SURGERIES, SPINA BIFIDA, OR REPEATED CATHERTIZATIONS? NO LATEX RISK : ARE YOU FREQUENTLY EXPOSED TO LATEX PRODUCTS IN YOUR OCCUPATION?NO DATE ASKED : 07/30/2018 ALCOHOL SCREENING DID YOU HAVE A DRINK CONTAINING ALCOHOL IN THE PAST YEAR?NO POINTS0 INTERPRETATIONNEGATIVE RECREATIONAL DRUG USE DRUG USE? PATIENT STATES HE STOPPED SMOKING MARIJUANA 4-6 MONTHS AGO CAFFEINE 3-4 SODAS DAILY. SEXUAL HX HAD SEX IN THE LAST 12 MONTHS (VAGINAL, ORAL, OR ANAL)?: YES, WITH: WOMEN ONLY, USE PROTECTION?: NO, HAVE YOU EVER HAD AN STD?: NO. EPISCOPALIAN NO JEHOVAH'S WITNESS BELIEFS THAT WOULD IMPACT HEALTH CARE. LANGUAGE TRISTANIAN. DOMESTIC VIOLENCE NONE. OCCUPATION: UNEMPLOYED. DIET: REGULAR. EXERCISE: NO REGULAR EXERCISE. MARITAL STATUS: . PAIN CLINIC PFS, CLERGY, PUBLIC HEALTH REFERRALS HAS THE PATIENT BEEN EDUCATED REGARDING HIS/HER PLAN OF CARE?YES HAS THE PATIENT BEEN EDUCATED REGARDING PAIN, THE RISK FOR PAIN, THE IMPORTANCE OF EFFECTIVE PAIN MANAGEMENT, AND THE PAIN ASSESSMENT PROCESS?YES ADVANCE DIRECTIVE ADVANCE DIRECTIVE DISCUSSED WITH PATIENT:YES DECLINED HCP INFORMATION AND ASSISTANCE WITH HCP FORM. 09/04/18 BV REVIEWED WITH PATIENT 04/12/18 0997 JSREVIEWED WITH PATIENT 08/09/18 1330 BVREVIEWED WITH PT 09/04/18 1534 BV. HOSPITALIZATION/MAJOR DIAGNOSTIC PROCEDURE NO HOSPITALIZATION HISTORY. REVIEW OF SYSTEMS REVIEWED BY: PROVIDER: CHANDA PULLIAM MD . CONSTITUTIONAL: ANY CHANGE IN YOUR MEDICAL CONDITION? NO . CHILLS NO . FEVER NO . INFECTION: DO YOU HAVE NEW INFECTIONS? NO . DO YOU HAVE HISTORY OF MRSA? NO . MUSCULOSKELETAL: ANY NEW PATTERNS OF PAIN OR NUMBNESS? YES, PAIN IN BACK AND LEFT SHOULDER HAS BEEN INTENSE FOR THE PAST COUPLE WEEKS . GASTROENTEROLOGY: ANY NEW CHANGE IN BOWEL CONTROL? NO . GENITOURINARY: ANY NEW CHANGE IN BLADDER CONTROL? NO . IS THERE A CHANCE YOU COULD BE ? NO . HEMATOLOGY/LYMPH: DO YOU TAKE ANY BLOOD THINNERS? (FOR EXAMPLE- COUMADIN, PLAVIX, AGGRENOX, PLATEL, PRADAXA, OR XARELTO) NO . WHEN WAS YOUR LAST DOSE? DATE: TIME: . NEUROLOGY: HAVE YOU FALLEN IN THE PAST 12 MONTHS? NO, PT DENIES ANY FALLS SINCE LAST VISIT. STATES PREVIOUS FALLS HAVE BEEN DOCUMENTED BY US. . ANY NEW EXTREMITY NUMBNESS OR WEAKNESS? NO . CARDIOLOGY: DO YOU HAVE A PACEMAKER OR DEFIBRILLATOR? NO . RESPIRATORY: HAVE YOU BEEN SICK IN THE PAST WEEK? YES, PT STATES HE HAD A COUGH ABOUT A WEEK AGO. DENIES ANY FEVER OR OTHER SYMPTOMS. STATES HE FEELS THE COUGH IS RESOLVING. . FEVER NO . FLU LIKE SYMPTOMS? NO . COUGH NO . INTEGUMENTARY: DO YOU HAVE ANY RASHES OR OPEN SORES? NO . ALLERGIC/IMMUNO: ARE YOU ALLERGIC TO IV DYE? NO . ANY NEW ALLERGIES? NO . PSYCHIATRIC: DO YOU HAVE THOUGHTS OF HURTING YOURSELF OR SOMEONE ELSE? NO . ARE YOU ABUSED, NEGLECTED, OR IN AN UNSAFE ENVIRONMENT? NO . ENDOCRINOLOGY: ARE YOU DIABETIC? NO . OTHER: DO YOU NEED ANY PRESCRIPTIONS? NO . IF YES, PLEASE LIST: ____ . ANY NEW PROBLEMS WITH YOUR MEDICATIONS? NO . WHEN DID YOU LAST EAT? ____ . WHEN DID YOU LAST DRINK? ____ . WHAT DID YOU LAST DRINK? ____ . NAME OF PERSON DRIVING YOU HOME? ____ . DO YOU HAVE ANY OTHER QUESTIONS OR CONCERNS PT IS DRIVING [place] ON 09/06/18 DUE TO FAMILY EMERGENCY. STATES HE IS CONCERNED ABOUT THIS SINCE SITTING IN THE CAR CAUSES SEVERE PAIN AND DISCOMFORT. WOULD LIKE TO DISCUSS THIS. . VITAL SIGNS WT 228 LBS, HT 71 IN, BMI 31.80 INDEX, BP 131/77 MM HG, HR 94 /MIN, RR 18 /MIN, TEMP 97.6 F, OXYGEN SAT % 96%, NA INITIALS AW 1433, REVIEWED BY: BV. EXAMINATION GENERAL EXAMINATION: PATIENT IS ALERT O X 3 AND COOPERATIVE. TENDERNESS IN THE THORACIC AND LEFT SHOULDER AREAS. PRESENCE OF TRIGGER POINTS AND BANDS OF TISSUE WITH RESTRICTION OF MOVEMENT OF THE BACK AND LEFT SHOULDER. PATIENT CAN ABDUCT THE LEFT ARM TO 20 DEGREES. HAND NETSUITE CONSULTANT OVER THE LEFT SIDE IS REDUCED. LEFT ARM IS WEAKER AT EXTENSION AND FLEXION. ASSESSMENTS MYALGIA, OTHER SITE - M79.18 (PRIMARY) OTHER CHRONIC PAIN - G89.29 PAIN IN LEFT SHOULDER - M25.512 THORACIC SPINE PAIN - M54.6 CERVICAL PAIN - M54.2 TREATMENT MYALGIA, OTHER SITE CLINICAL NOTES: WE DISCUSSED SEVERAL ISSUES WITH MR. COLLAZO'S PAIN MANAGEMENT CASE. THE PATIENT WILL CONTINUE USING THE TIZANIDINE FOR SPASMS AND THE TORADOL FOR SEVERE ACUTE PAIN. I WILL PRESCRIBE THE PATIENT SOMA TO USE WHEN HE RETURNS FROM TRAVELLING. DUE TO THE TRIGGER POINTS, BANDS OF TISSUE, AND RESTRICTION OF MOVEMENT, I WOULD LIKE TO MOVE FORWARD WITH A TRIGGER POINT INJECTION AT THIS TIME. WE DISCUSSED THE BENEFITS, RISKS, AND ALTERNATIVES OF THE INJECTION AND THE PATIENT WOULD LIKE TO PROCEED. THE PATIENT MAY CONSIDER A THERAPEUTIC THORACIC FACET BLOCK IN THE FUTURE. I WOULD ALSO LIKE TO DISCUSS THE CASE WITH THE PATIENT'S CABLE SPOOLER. THE PATIENT WILL FOLLOW UP IN 1 MONTH. I WAS WITH THE PATIENT FOR OVER 30 MINUTES AND MORE THAN HALF OF THE TIME WAS SPENT DISCUSSING ALTERNATIVES. INSTRUCTIONS WERE GIVEN, QUESTIONS WERE ANSWERED, PATIENT REPORTS UNDERSTANDING AND AGREES WITH THE PLAN. I, MARIPOSA LU, DOCUMENTED THE ABOVE INFORMATION ACTING A SCRIBE FOR DR. PULLIAM. I HAVE REVIEWED THE ABOVE DOCUMENT, WRITTEN BY MARIPOSA LU SCRIBE AND I VERIFY THAT IT IS ACCURATE. . OTHERS START SOMA TABLET, 350 MG, 1 TABLET NEEDED, ORALLY FOR SPASMS AND PAIN, EVERY 8 HOURS NEEDED MDD3, 7 DAY(S), 18, REFILLS 0 PREVENTIVE MEDICINE PAIN CLINIC TEACHING: MEDICATIONS SOMA PRESCRIBED AND GIVN PRINTED MATERIAL. PROCEDURE TEACHING PRE-PROCEDURE INSTRUCTIONS GIVEN TO AND REVIEWED WITH PT FOR TRIGGER POINT INJECTIONS. PT. VERBALIZED UNDERSTANDING. AD. PROCEDURE CODES FA211 ESTABILISHED PATIENT [facility] FACILITY CHARGE G8427 CURRENT MEDS W/DOSAGES DOCUMENTED G8730 PAIN ASSESS POS TOOL F/U PLAN DOC DISPOSITION & COMMUNICATION FOLLOW UP 4 WEEKS ELECTRONICALLY SIGNED BY CHANDA PULLIAM MD, ON 09/22/2018 AT 07:04 PM EDT DISCLAIMER : THIS IS A VISIT SUMMARY EXTRACTED FROM THE [employer] CHART. IT IS NOT A COPY OF THE [employer] PROGRESS NOTE. MTDD
== END ==
LOC: M PAIN 14:30
PROVIDERS: ATTEND Anesthesiology
DX: M79.18 Myalgia, other site (principal); M25.512 Pain in left shoulder; M54.6 Pain in thoracic spine; M54.2 Cervicalgia; G89.29 Other chronic pain; K21.9 Gastro-esophageal reflux disease without esophagitis; F41.9 Anxiety disorder, unspecified; F17.210 Nicotine dependence, cigarettes, uncomplicated; Z79.899 Other long term (current) drug therapy

== ENCOUNTER → 2018-09-18 | Outpatient (CLI) | payer OTHER ==
[~2018-09-18] MED LIST changes: +BUPIVACAINE HCL 0.25% 10 ML VIAL As Ordered ONE; +BUPIVACAINE HCL 0.25% 30 ML VIAL As Ordered ONE; +TRIAMCINOLONE ACETONIDE SUSP 40 MG/ML VIAL (J3301) As Ordered ONE; +diazePAM 5 MG TAB As Ordered ONE; +oxyCODONE 5MG TAB As Ordered ONE
--- NOTE | 2018-10-07 00:22 | ECWPNPC ---
PATIENT NAME: SURESH COLLAZO : 1980 GENDER: MALE VISIT DATE: 09/18/2018 DISCHARGE DATE: 09/18/181547 VISIT LOCKED DATE TIME: PHYSICIAN: CHANDA PULLIAM MD RESOURCE: CHANDA PULLIAM MD REASON FOR APPOINTMENT 1. TPI SHOULDER/BACK HISTORY OF PRESENT ILLNESS HISTORY OF PRESENT ILLNESS: PAIN THE PATIENT DESCRIBES THE PAIN... FALL RISK SCREENING: SCREENING :NO FALLS REPORTED IN THE LAST YEAR CURRENT MEDICATIONS TAKING TIZANIDINE HCL 2 MG TABLET 1 TABLET NEEDED ORALLY FOR SPASMS AND PAIN THREE TIMES A DAY MDD3, NOTES: 3 DAYS AGO TAKING KETOROLAC TROMETHAMINE 10 MG TABLET 1 TABLET WITH FOOD OR MILK NEEDED ORALLY FOR PAIN EVERY 8 HRS MDD3, NOTES: NONE RECENT TAKING WELLBUTRIN XL 150 MG TABLET EXTENDED RELEASE 24 HOUR 1 TABLET IN THE MORNING ORALLY ONCE A DAY, NOTES: 09/18/18 0900 TAKING GABAPENTIN 600 MG TABLET 1 TABLET ORALLY , NOTES: 09/18/18 0900 TAKING CELECOXIB 200 MG CAPSULE 1 CAPSULE WITH FOOD ORALLY BID, NOTES: 09/18/18 09 TAKING ANTACID 500 MG TABLET CHEWABLE 1 TABLET ORALLY ONCE A DAY, NOTES: NEEDED NONE RECENT TAKING ACETAMINOPHEN 325 MG TABLET 2 TABLETS NEEDED ORALLY FOUR TIMES DAILY NEEDED, NOTES: 09/17/18 PM TAKING LOUIE-SELTZER EXTRA STRENGTH 500 MG TABLET EFFERVESCENT 1 TABLET NEEDED ORALLY EVERY 6 HRS, NOTES: NEEDED NONE RECENT TAKING NAPROXEN 500 MG TABLET 1 TABLET WITH FOOD OR MILK NEEDED ORALLY EVERY 12 HRS, NOTES: NONE RECENT TAKING MELOXICAM 15 MG TABLET 1 TABLET ORALLY ONCE A DAY, NOTES: NONE RECENT TAKING OMEPRAZOLE 20 MG CAPSULE DELAYED RELEASE 1 CAPSULE ORALLY ONCE A DAY, NOTES: 09/18/18 0900 TAKING SERTRALINE HCL 25 MG TABLET 1 TABLET ORALLY ONCE A DAY, NOTES: 09/17/18 PM TAKING SOMA 350 MG TABLET 1 TABLET NEEDED ORALLY FOR SPASMS AND PAIN EVERY 8 HOURS NEEDED MDD3, NOTES: 4 DAYS AGO NOT-TAKING SILDENAFIL CITRATE 50 MG TABLET 1 TABLET NEEDED ORALLY ONCE A DAY, NOTES: NONE RECENTLY DISCONTINUED RANITIDINE HCL 75 MG TABLET 1 TABLET NEEDED ORALLY ONCE A DAY MEDICATION LIST REVIEWED AND RECONCILED WITH THE PATIENT PAST MEDICAL HISTORY FIBROMYALGIA GERD ANXIETY IRRITABLE BOWEL SYNDROME NEUROPATHY PLANTAR FASCITIS CLUSTER HEADACHES ALLERGIES N.K.D.A. SURGICAL HISTORY PLANTAR FASCITIS RELEASE 04/2017 HOSPITALIZATION/MAJOR DIAGNOSTIC PROCEDURE NO HOSPITALIZATION HISTORY. REVIEW OF SYSTEMS REVIEWED BY: PROVIDER: . CONSTITUTIONAL: ANY CHANGE IN YOUR MEDICAL CONDITION? NO . CHILLS NO . FEVER NO . INFECTION: DO YOU HAVE NEW INFECTIONS? NO . DO YOU HAVE HISTORY OF MRSA? NO . MUSCULOSKELETAL: ANY NEW PATTERNS OF PAIN OR NUMBNESS? NO . GASTROENTEROLOGY: ANY NEW CHANGE IN BOWEL CONTROL? NO . GENITOURINARY: ANY NEW CHANGE IN BLADDER CONTROL? NO . IS THERE A CHANCE YOU COULD BE ? NO . HEMATOLOGY/LYMPH: DO YOU TAKE ANY BLOOD THINNERS? (FOR EXAMPLE- COUMADIN, PLAVIX, AGGRENOX, PLATEL, PRADAXA, OR XARELTO) NO . WHEN WAS YOUR LAST DOSE? DATE: TIME: . NEUROLOGY: HAVE YOU FALLEN IN THE PAST 12 MONTHS? NO . ANY NEW EXTREMITY NUMBNESS OR WEAKNESS? NO . CARDIOLOGY: DO YOU HAVE A PACEMAKER OR DEFIBRILLATOR? NO . RESPIRATORY: HAVE YOU BEEN SICK IN THE PAST WEEK? NO . FEVER NO . FLU LIKE SYMPTOMS? NO . COUGH PT STATES HE HAD A DRY INTERMITTENT COUGH A FEW DAYS AGO. DENIES ANY FEVER AND DENIES ANY OTHER SYMPTOMS. STATES COUGH HAS SINCE RESOLVED. . INTEGUMENTARY: DO YOU HAVE ANY RASHES OR OPEN SORES? NO . ALLERGIC/IMMUNO: ARE YOU ALLERGIC TO IV DYE? NO . ANY NEW ALLERGIES? NO . PSYCHIATRIC: DO YOU HAVE THOUGHTS OF HURTING YOURSELF OR SOMEONE ELSE? NO . ARE YOU ABUSED, NEGLECTED, OR IN AN UNSAFE ENVIRONMENT? NO . ENDOCRINOLOGY: ARE YOU DIABETIC? NO . OTHER: DO YOU NEED ANY PRESCRIPTIONS? NO . IF YES, PLEASE LIST: ____ . ANY NEW PROBLEMS WITH YOUR MEDICATIONS? NO . WHEN DID YOU LAST EAT? 09/18/18 0900 . WHEN DID YOU LAST DRINK? 09/18/18 1100 . WHAT DID YOU LAST DRINK? WATER . NAME OF PERSON DRIVING YOU HOME? KAYLA- . DO YOU HAVE ANY OTHER QUESTIONS OR CONCERNS NO . VITAL SIGNS WT 229.6 LBS, HT 71 IN, BMI 32.02 INDEX, BP 129/71 MM HG, HR 82 /MIN, RR 18 /MIN, TEMP 97.7 F, OXYGEN SAT % 95%, NA INITIALS AW 1315, REVIEWED BY: BV. ASSESSMENTS MYALGIA, OTHER SITE - M79.18 (PRIMARY) PROCEDURES PN TRIGGER POINT INJECTION WITH STEROIDS PRE PROCEDURE DIAGNOSIS 1. MYALGIA 2. PAIN AT LEFT SHOULDER AREA AND BILATERAL THORACIC AREA. POST PROCEDURE DIAGNOSIS 1. MYALGIA 2. PAIN AT LEFT SHOULDER AREA AND BILATERAL THORACIC AREA. PROCEDURE TRIGGER POINT INJECTION AT LEFT SHOULDER AREA AND BILATERAL THORACIC AREA. SURGEON DR. CHANDA PULLIAM MANAGER PROJECT NONE ANESTHESIA LOCAL PRE PROCEDURE NOTE THE PATIENT HAS A HISTORY OF CHRONIC PAIN AT THE LEFT SHOULDER AREA AND RIGHT AND LEFT THORACIC AREA. I EVALUATED THE PATIENT AND REVIEWED THE CHART. THERE IS EVIDENCE OF BANDS OF TISSUE WITH RESTRICTION OF MOVEMENT AND PRESENCE OF TRIGGER POINT AT THE AFFECTED AREA. I WENT OVER THE RISKS, ALTERNATIVES, AND BENEFITS ASSOCIATED WITH THIS PROCEDURE. THE PATIENT WOULD LIKE TO PROCEED AND GIVE CONSENT TO PERFORMED THE PROCEDURE. THE PATIENT DENIES UNEXPLAINABLE WEIGHT LOSS, FEVER, CHILLS, OR NEW CHANGES IN URINARY OR BOWEL CONTROL DESCRIPTION OF PROCEDURE THE PATIENT WAS BROUGHT TO THE PROCEDURE ROOM AND PLACED IN THE SITTING POSITION. THE AREA WAS CLEANED WITH ALCOHOL. THE PROCEDURE WAS DONE USING ASEPTIC STERILE TECHNIQUE. I CHECKED LATERALITY AND THE LEVEL WHERE THE PROCEDURE WAS GOING TO BE PERFORMED WITH THE PATIENT AND THE SUPPORTING STAFF AT THE MOMENT OF THE TIME OUT IN THE PROCEDURE ROOM. USING A 25-GAUGE NEEDLE, TRIGGER POINTS WERE INJECTED AT THE LEFT SHOULDER AREA AND RIGHT AND LEFT THORACIC AREA WITH A TOTAL OF 40 ML OF BUPIVACAINE 0.25% AND KENALOG 40 MG. THERE WAS NO EVIDENCE OF BLOOD, PARESTHESIA OR CEREBROSPINAL FLUID DURING THE PROCEDURE. THE PATIENT WAS SENT TO THE RECOVERY ROOM. THE PATIENT WAS MOVING THE EXTREMITIES AND DOING WELL. THERE WAS NO COMPLICATION DURING THE PROCEDURE POST PROCEDURE NOTE THE PATIENT WILL BE SEEN IN A FOLLOW UP IN THE NEXT FEW WEEKS. INSTRUCTIONS WERE GIVEN, QUESTIONS WERE ANSWERED, AND THE PATIENT EXPRESSED UNDERSTANDING AND AGREES WITH THE PLAN. I, PARK MCL[place]HLIN, DOCUMENTED THE ABOVE INFORMATION ACTING A SCRIBE FOR DR. PULLIAM. I HAVE REVIEWED THE ABOVE DOCUMENT, WRITTEN BY PARK TERRELL AND I VERIFY THAT IT IS ACCURATE. PROCEDURE CODES 02267 INJECT TRIGGER POINTS 3/> DISPOSITION & COMMUNICATION FOLLOW UP 3 WEEKS ELECTRONICALLY SIGNED BY CHANDA PULLIAM MD, MD ON 10/06/2018 AT 03:59 PM EDT DISCLAIMER : THIS IS A VISIT SUMMARY EXTRACTED FROM THE [employer] CHART. IT IS NOT A COPY OF THE [employer] PROGRESS NOTE. [facility]
== END ==
LOC: M PAIN 12:45
PROVIDERS: ATTEND Anesthesiology
DX: M79.18 Myalgia, other site (principal); M25.512 Pain in left shoulder; M54.6 Pain in thoracic spine; K21.9 Gastro-esophageal reflux disease without esophagitis; F41.9 Anxiety disorder, unspecified; Z79.899 Other long term (current) drug therapy
CPT/HCPCS: 20553; J3301

== ENCOUNTER → 2018-09-28 | Outpatient (CLI) | payer OTHER ==
[~2018-09-28] MED LIST changes: -BUPIVACAINE HCL 0.25% 10 ML VIAL As Ordered ONE; -BUPIVACAINE HCL 0.25% 30 ML VIAL As Ordered ONE; -TRIAMCINOLONE ACETONIDE SUSP 40 MG/ML VIAL (J3301) As Ordered ONE; -diazePAM 5 MG TAB As Ordered ONE; -oxyCODONE 5MG TAB As Ordered ONE
--- NOTE | 2018-09-29 09:57 | REP ---
MRI CERVICAL SPINE: Multiple sequences obtained in the sagittal and axial planes. Vertebral bodies are normal in height and are well aligned with no prevertebral soft tissue swelling or edema. There is mild loss of water signal and disc degeneration at C3-4 and C5-6. No abnormal signal is seen in the cervical spinal cord. There is slight diffuse disc bulging at C4-5 and C5-6. This slightly effaces the anterior subarachnoid space. However, there is no evidence of cord compression or significant spinal stenosis. I do not see evidence of neural foraminal narrowing. IMPRESSION: Mild degenerative signal in the cervical discs. Disc space heights are well maintained. Slight diffuse disc bulging C4-5 and C5-6. No significant spinal stenosis or neural foraminal narrowing. Electronically Signed by Orlando Potter MD 09/29/2018 11:32 A
--- NOTE | 2018-09-29 10:05 | REP ---
MRI THORACIC SPINE: Multiple sequences obtained in the sagittal and axial planes. The thoracic vertebral bodies are normal in height and are well aligned with normal thoracic kyphosis. There is mild loss of water signal and disc degeneration at T7-8, T9-10, and T11-12 levels with mild disc space narrowing at those levels. I see no abnormal signal in the thoracic spinal cord. At the T7-8 level there is very mild asymmetric disc bulging to the right of midline slightly effacing the anterior subarachnoid space, but not causing cord compression or significant spinal stenosis. At the T9-10 level there is very mild asymmetric disc bulging to the left of midline slightly effacing the anterior subarachnoid space, but not causing cord compression of sign spinal stenosis. At T11-12 there is mild to moderate asymmetric disc bulging on the left effacing the anterior subarachnoid space, but not compressing the cord or causing significant spinal stenosis. No neural foraminal narrowing is seen at any level. There is no bone marrow edema. There is a hemangioma noted in the T9 vertebral body. There is a small adjacent Schmorl's node posteriorly along the inferior endplate of T9. Another Schmorl's node is seen along the posterior superior endplate of T11. IMPRESSION: Mild degenerative disc changes at T7-8, T9-10 and T11-12. At T7-8 there is slight diffuse disc bulging to the right of midline. At T9-10 there is slight diffuse disc bulging to the left of midline. At T11-12 there is mild to moderate diffuse disc bulging to the left of midline. The anterior subarachnoid space is mildly effaced at these levels but there is not significant cord compression, spinal stenosis, or neural foraminal narrowing. Electronically Signed by Orlando Potter MD 09/29/2018 11:32 A
== END ==
LOC: M RAD 10:27
PROVIDERS: ATTEND Anesthesiology
DX: M50.31 Other cervical disc degeneration, high cervical region (principal); M50.322 Other cervical disc degeneration at C5-C6 level; M50.221 Other cervical disc displacement at C4-C5 level; M50.222 Other cervical disc displacement at C5-C6 level; M51.24 Other intervertebral disc displacement, thoracic region

== ENCOUNTER 2018-10-10 07:58 | Emergency (ER) | payer OTHER ==
[~2018-10-10] VITALS: Ht 180.3 cm; Wt 102.4 kg
[2018-10-10] MEDS ORDERED: BUPR150T3 (08:10)
[2018-10-10] MEDS ORDERED: OMEP-218 (08:10)
[2018-10-10] MEDS ORDERED: NEUR100C PO (08:10)
[2018-10-10] MEDS ORDERED: CELE100C PO (08:10)
[2018-10-10] MEDS ORDERED: SERT-155 (08:10)
[2018-10-10] MEDS ORDERED: KETO10TAB PO (08:10)
--- NOTE | 2018-10-10 09:19 | REP ---
Chest x-ray: Two views. History: Left-sided chest pain. Comparison chest x-ray: October 25, 2015. Findings: The lungs are exposed at a low level of inspiration similar to the prior study. There is plate-like atelectasis in the left base laterally. No infiltrate is seen. Pleural angles are sharp. High heart is not felt to be enlarged. Pulmonary vasculature is not increased. Impression: Plate-like atelectasis left base. Low level of inspiration again noted. Otherwise unremarkable. Electronically Signed by Ford Martin MD 10/10/2018 09:11 A
[2018-10-10 10:01] LABS: BASO # 0.1 10^3/uL (0.0-0.2); BASO % 0.8 % (0.0-1.0); EOS # 0.2 10^3/uL (0.0-0.50); EOS % 2.3 % (0.0-3.0); HEMATOCRIT 46.3 % (42.0-52.0); HEMOGLOBIN 15.6 g/dl (13.5-17.5); LYMPH # 2.2 10^3/uL (1.5-4.5); LYMPH % 25.7 % (24.0-44.0); MEAN CORPUSCULAR HEMOGLOBIN 29.9 pg (27.0-33.0); MEAN CORPUSCULAR HGB CONC 33.7 g/dl (32.0-36.5); MEAN CORPUSCULAR VOLUME 88.7 fl (80.0-96.0); MONO # 0.6 10^3/uL (0.0-0.8); MONO % 6.5 % (0.0-5.0); NEUTROPHILS # 5.5 10^3/uL (1.8-7.7); NEUTROPHILS % 64.2 % (36.0-66.0); PLATELET COUNT, AUTOMATED 187 10^3/uL (150-450); RED BLOOD COUNT 5.22 10^6/uL (4.30-6.10); WHITE BLOOD COUNT 8.6 10^3/uL (4.0-10.0)
[2018-10-10 10:29] LABS: BLOOD UREA NITROGEN 21 MG/DL (7-18); CALCIUM LEVEL 9.2 MG/DL (8.5-10.1); CARBON DIOXIDE LEVEL 25 MEQ/L (21-32); CHLORIDE LEVEL 107 MEQ/L (98-107); CK-MB VALUE MASS < 1.0 NG/ML (<3.6); CPK CREATINE PHOSPHOKINASE 94 U/L (39-308); GLOMERULAR FILTRATION RATE > 60.0 (>60); GLUCOSE, FASTING 114 MG/DL (70-100); MB/CK RELATIVE INDEX 1.06 (< OR =4); POTASSIUM SERUM 4.2 MEQ/L (3.5-5.1); SODIUM LEVEL 138 MEQ/L (136-145); TROPONIN I < 0.02 NG/ML (< 0.10)
[2018-10-10] MEDS ORDERED: NS 1,000 ML IV ONE (10:45)
[2018-10-10] MEDS ORDERED: ISOVUE-370 76% 100ML VIAL (Q9967) As Ordered ONE (10:52)
[2018-10-10] MEDS ORDERED: KETOROLAC 30 MG/ML VIAL (J1885) IV ONE (11:45)
[2018-10-10] MEDS ORDERED: INDO50CA11 PO (11:48)
--- NOTE | 2018-10-10 11:49 | REP ---
CT pulmonary angiogram: With IV contrast. History: Sided chest pain. Elevated D-dimer. Comparison studies: Comparison is made with today's chest x-ray. Contrast dose: 75 mL of Isovue [address] technique: Helical scanning is acquired and overlapping 1.5 mm and contiguous 3 mm axial images are reformatted. In addition, maximum intensity projection and multiplanar re-formation images are generated in sagittal and coronal imaging projections. CT pulmonary angiographic findings: There is good opacification of the pulmonary arterial tree and there is no CT evidence to suggest pulmonary embolus. Maximum intensity projection images and axial images show no filling defect or vessel cutoff. The thoracic aorta enhances homogeneously and is normal in caliber. No evidence of aneurysm or dissection is seen. There is no evidence of hilar or mediastinal mass or adenopathy. There is a small left pleural effusion noted. There is discoid atelectasis in the lower lobes bilaterally and in the lingula at the left base. No definite infiltrate is seen. Lung mackay are otherwise clear. No right pleural or pericardial effusion is seen. The adrenal glands are not included in the imaging field of view. The visualized upper abdominal structures are unremarkable. No extrathoracic mass or adenopathy is seen. No acute bony abnormality. Impression: No CT evidence of pulmonary embolus. Bilateral lower lobe and left base lingular discoid atelectasis. Small left pleural effusion. No definite infiltrate. Electronically Signed by Ford Martin MD 10/10/2018 02:01 P
[2018-10-10 12:08] VITALS: BP 144/88
--- NOTE | 2018-10-10 17:14 | ECGEPIP ---
Stationary ECG Study - ED Test Date: 2018-10-10 Pat Name: SURESH COLLAZO Department: Room: - Gender: M [employer] Operator: : 1980 Requested By: JOSE ESCALERA PA-C. Order Number: [id number] Reading MD: Marck De Dios Measurements Intervals [place] Rate: 70 P: 11 PA: 199 QRS: 14 QRSD: 109 T: 36 QT: 374 QTc: 405 Interpretive Statements SINUS RHYTHM INCOMPLETE RIGHT BUNDLE BRANCH BLOCK SIMILAR TO 08/25/15 Electronically Signed On 10-10-2018 17:14:32 EDT by Marck De Dios
--- NOTE | 2018-10-15 14:11 | ED PDOC ---
Post-Departure Follow-Up neil carter faxed formal report of cta chest for fu Sunday Rausch MD October 15, 2018 14:11
== END 2018-10-10 12:12 | disposition home or self-care (01) ==
LOC: M ED 07:58
DX: J90 Pleural effusion, not elsewhere classified (principal); J98.11 Atelectasis; I45.19 Other right bundle-branch block; M54.9 Dorsalgia, unspecified; G89.29 Other chronic pain; F17.210 Nicotine dependence, cigarettes, uncomplicated; Z79.899 Other long term (current) drug therapy
CPT/HCPCS: 36415; 71046; 71275; 80048; 82550; 82553; 84484; 85025; 85379; 93005; 96374; 99284; J1885; Q9967

== ENCOUNTER → 2018-11-21 | Outpatient (CLI) | payer OTHER ==
[~2018-11-21] MED LIST changes: +BUPR150T3; +CELE100C PO; +INDO50CA11 PO; +KETO10TAB PO; +NEUR100C PO; +OMEP-218; +SERT-155
--- NOTE | 2018-11-28 00:30 | ECWPNPC ---
PATIENT NAME: SURESH COLLAZO : 1980 GENDER: MALE VISIT DATE: 11/21/2018 DISCHARGE DATE: 11/21/18 1634 VISIT LOCKED DATE TIME: PHYSICIAN: CHANDA PULLIAM MD RESOURCE: CHANDA PULLIAM MD REASON FOR APPOINTMENT 1. POST PROC HISTORY OF PRESENT ILLNESS GENERAL: 38 YEAR OLD MALE PATIENT WITH A HISTORY OF CHRONIC THORACIC AND LEFT SHOULDER PAIN. THE PATIENT DESCRIBES THE PAIN ACHING, SORE, TENDER, STABBING, SHOOTING, AND CONTINUOUS WITH A PAIN SCORE OF 6-9/10 DEPENDING ON PHYSICAL ACTIVITY. THE PATIENT RECEIVED A TRIGGER POINT INJECTION ON 09/18/2018 AND REPORTS THAT IT HELPED RELIEVE SOME OF HIS PAIN, BUT NOT MUCH IT HAS IN THE PAST. PATIENT DENIES UNEXPLAINABLE WEIGHT LOSS, FEVER, CHILLS, NEW CHANGES ON HIS URINARY OR BOWEL CONTROL. CURRENT MEDICATIONS TAKING TIZANIDINE HCL 2 MG TABLET 1 TABLET NEEDED ORALLY FOR SPASMS AND PAIN THREE TIMES A DAY MDD3 TAKING KETOROLAC TROMETHAMINE 10 MG TABLET 1 TABLET WITH FOOD OR MILK NEEDED ORALLY FOR PAIN EVERY 8 HRS MDD3 TAKING WELLBUTRIN XL 150 MG TABLET EXTENDED RELEASE 24 HOUR 1 TABLET IN THE MORNING ORALLY ONCE A DAY TAKING GABAPENTIN 600 MG TABLET 1 TABLET ORALLY ONCE A DAY TAKING CELECOXIB 200 MG CAPSULE 1 CAPSULE WITH FOOD ORALLY TWICE A DAY TAKING ANTACID 500 MG TABLET CHEWABLE 1 TABLET ORALLY ONCE A DAY NEEDED TAKING ACETAMINOPHEN 325 MG TABLET 2 TABLETS NEEDED ORALLY FOUR TIMES DAILY NEEDED TAKING LOUIE-SELTZER EXTRA STRENGTH 500 MG TABLET EFFERVESCENT 1 TABLET NEEDED ORALLY EVERY 6 HRS TAKING NAPROXEN 500 MG TABLET 1 TABLET WITH FOOD OR MILK NEEDED ORALLY EVERY 12 HRS TAKING OMEPRAZOLE 20 MG CAPSULE DELAYED RELEASE 1 CAPSULE ORALLY ONCE A DAY TAKING SOMA 350 MG TABLET 1 TABLET NEEDED ORALLY FOR SPASMS AND PAIN EVERY 8 HOURS NEEDED MDD3 NOT-TAKING MELOXICAM 15 MG TABLET 1 TABLET ORALLY ONCE A DAY NOT-TAKING SERTRALINE HCL 25 MG TABLET 1 TABLET ORALLY ONCE A DAY NOT-TAKING SILDENAFIL CITRATE 50 MG TABLET 1 TABLET NEEDED ORALLY ONCE A DAY, NOTES: NONE RECENTLY MEDICATION LIST REVIEWED AND RECONCILED WITH THE PATIENT PAST MEDICAL HISTORY FIBROMYALGIA GERD ANXIETY IRRITABLE BOWEL SYNDROME NEUROPATHY PLANTAR FASCITIS CLUSTER HEADACHES LEFT SHOULDER PAIN THORACIC BACK PAIN ALLERGIES N.K.D.A. SURGICAL HISTORY PLANTAR FASCITIS RELEASE BILATERAL 04/2017 FAMILY HISTORY FATHER: ALIVE, DIAGNOSED WITH HYPERTENSION, DIABETES MOTHER: ALIVE, BREAST CANCER, LUNG CANCER, CANCER 4 BROTHER(S) , 1 SISTER(S) - HEALTHY. 3 SON(S) - HEALTHY. NO KNOWN FAMILY HISTORY OF ANY UROLOGICALLY RELATED DISEASES\/CANCERS. \N\NMATERNAL AUNTS (2) LUPUS. SOCIAL HISTORY GENERAL: TOBACCO USE ARE YOU A:CURRENT SMOKER ARE YOU INTERESTED IN QUITTING?THINKING ABOUT QUITTING WORKING WITH PCP TO TRY AND QUIT. DECLINED INFORMATION ON STOP SMOKING CLASSES. 04/12/18 0925 JS COUNSELED THE PATIENT ON SMOKING CESSATION, EDUCATION [id number]/17/2019 HOW MANY CIGARETTES A DAY DO YOU SMOKE?-20 HOW SOON AFTER YOU WAKE UP DO YOU SMOKE YOUR FIRST CIGARETTE?AFTER 60 MIN HOW OFTEN DO YOU SMOKE CIGARETTES?EVERY DAY PATIENT COUNSELED ON THE DANGERS OF TOBACCO USE AND URGED TO QUIT:06/13/2018 DIET: REGULAR. LANGUAGE [place]OU[place]ORE[place]. DOMESTIC VIOLENCE NONE. RECREATIONAL DRUG USE DRUG USE? PATIENT STATES HE STOPPED SMOKING MARIJUANA MORE THAN 6 MONTHS AGO EXERCISE: NO REGULAR EXERCISE. PAIN CLINIC PFS, CLERGY, PUBLIC HEALTH REFERRALS HAS THE PATIENT BEEN EDUCATED REGARDING HIS/HER PLAN OF CARE?YES HAS THE PATIENT BEEN EDUCATED REGARDING PAIN, THE RISK FOR PAIN, THE IMPORTANCE OF EFFECTIVE PAIN MANAGEMENT, AND THE PAIN ASSESSMENT PROCESS?YES LATEX QUESTIONNAIRE LATEX ALLERGY : HAVE YOU EVER DEVELOPED ANY TYPE OF REACTION AFTER HANDLING LATEX PRODUCTS SUCH RUBBER GLOVES, CONDOMS, DIAPHRAGMS, BALLOONS, SOCKS, OR UNDERWEAR?NO LATEX ALLERGY : HAVE YOU EVER DEVELOPED ANY TYPE OF REACTION DURING OR AFTER DENTAL APPOINTMENT, VAGINAL/RECTAL EXAMINATION, SURGICAL PROCEDURE, OR ANY OTHER EXPOSURE?NO LATEX RISK : HAVE YOU EVER HAD ANY DIFFICULTY BREATHING OR HIVES AFTER EATING OR HANDLING ANY FRUITS, OR VEGETABLES; SUCH KIWI, BANANAS, STONE FRUITS, OR CHESTNUTSNO LATEX RISK : DO YOU HAVE A PREVIOUS PERSONAL HISTORY OF MORE THAN NINE SURGERIES, SPINA BIFIDA, OR REPEATED CATHERTIZATIONS? NO LATEX RISK : ARE YOU FREQUENTLY EXPOSED TO LATEX PRODUCTS IN YOUR OCCUPATION?NO DATE ASKED : 07/30/2018 CAFFEINE 3-4 SODAS DAILY. ADVANCE DIRECTIVE ADVANCE DIRECTIVE DISCUSSED WITH PATIENT:YES DECLINED HCP INFORMATION AND ASSISTANCE WITH HCP FORM. 09/04/18 BV MANDAEN [id number] NONE MARITAL STATUS: . ALCOHOL SCREENING DID YOU HAVE A DRINK CONTAINING ALCOHOL IN THE PAST YEAR?NO POINTS0 INTERPRETATIONNEGATIVE OCCUPATION: UNEMPLOYED. SEXUAL HX HAD SEX IN THE LAST 12 MONTHS (VAGINAL, ORAL, OR ANAL)?: YES, WITH: WOMEN ONLY, USE PROTECTION?: NO, HAVE YOU EVER HAD AN STD?: NO. REVIEWED WITH PATIENT 04/12/18 0926 JSREVIEWED WITH PATIENT 08/09/18 1330 BVREVIEWED WITH PT 09/04/18 1534 BV. HOSPITALIZATION/MAJOR DIAGNOSTIC PROCEDURE DENIES PAST HOSPITALIZATION REVIEW OF SYSTEMS REVIEWED BY: PROVIDER: CHANDA PULLIAM MD . VITAL SIGNS WT 228.2 LBS, HT 71 IN, BMI 31.82 INDEX, BP 136/75 MM HG, HR 79 /MIN, RR 18 /MIN, TEMP 97.4 F, OXYGEN SAT % 97%, NA INITIALS SC 14:58, REVIEWED BY: LS. EXAMINATION GENERAL: PATIENT IS ALERT O X 3 AND COOPERATIVE. TENDERNESS IN THE THORACIC AREA. PAIN INCREASES OVER THE THORACIC FACET JOINTS WITH EXTENSION AND LATERAL ROTATION OF THE BACK. MRI OF THE THORACIC SPINE DONE ON 09/28/2018 SHOWS FACET ARTHROPATHY CHANGES. ASSESSMENTS SPONDYLOSIS OF THORACIC REGION WITHOUT MYELOPATHY OR RADICULOPATHY - M47.814 (PRIMARY) OTHER CHRONIC PAIN - G89.29 PAIN IN LEFT SHOULDER - M25.512 TREATMENT SPONDYLOSIS OF THORACIC REGION WITHOUT MYELOPATHY OR RADICULOPATHY CLINICAL NOTES: WE DISCUSSED SEVERAL ISSUES WITH MR. COLLAZO'S PAIN MANAGEMENT CASE. I WILL REFER THE PATIENT TO [facility] FOR THE LEFT SHOULDER PAIN. DUE TO THE THORACIC SPONDYLOSIS, I WOULD LIKE TO MOVE FORWARD WITH A THERAPEUTIC THORACIC FACET BLOCK AT THIS TIME. WE DISCUSSED THE BENEFITS, RISKS, AND ALTERNATIVES OF THE INJECTION AND THE PATIENT WOULD LIKE TO PROCEED. THE PATIENT WOULD LIKE TO MOVE FORWARD WITH IV SEDATION DUE TO PAIN AND ANXIETY ASSOCIATED WITH THE PROCEDURE. THE PATIENT WILL CONTINUE WITH HIS SAME MEDICATION REGIMENT AND WILL FOLLOW UP WITH A NURSE PRACTITIONER IN 6 WEEKS. INSTRUCTIONS WERE GIVEN, QUESTIONS WERE ANSWERED, PATIENT REPORTS UNDERSTANDING AND AGREES WITH THE PLAN. I, MARIPOSA LU, DOCUMENTED THE ABOVE INFORMATION ACTING A SCRIBE FOR DR. PULLIAM. I HAVE REVIEWED THE ABOVE DOCUMENT, WRITTEN BY MARIPOSA HAMPTONIBCarlos AND I VERIFY THAT IT IS ACCURATE. . OTHERS REFILL SOMA TABLET, 350 MG, 1 TABLET NEEDED, ORALLY FOR SPASMS AND PAIN, EVERY 8 HOURS NEEDED MDD3, 7 DAY(S), 18, REFILLS 0 PROCEDURE CODES FA211 ESTABILISHED PATIENT [facility] FACILITY CHARGE G8427 CURRENT MEDS W/DOSAGES DOCUMENTED G8730 PAIN ASSESS POS TOOL F/U PLAN DOC DISPOSITION & COMMUNICATION FOLLOW UP 6 WEEKS WITH OSIEL (REASON: THORACIC & SHOULDER PAIN) ELECTRONICALLY SIGNED BY CHANDA PULLIAM MD, MD ON 11/27/2018 AT 01:32 PM EDT DISCLAIMER : THIS IS A VISIT SUMMARY EXTRACTED FROM THE [employer] CHART. IT IS NOT A COPY OF THE [employer] PROGRESS NOTE. MARTHA
== END ==
LOC: M PAIN 15:15
PROVIDERS: ATTEND Anesthesiology
DX: G89.29 Other chronic pain (principal); M47.814 Spondylosis without myelopathy or radiculopathy, thoracic region; M25.512 Pain in left shoulder; M79.7 Fibromyalgia; K21.9 Gastro-esophageal reflux disease without esophagitis; F41.9 Anxiety disorder, unspecified; K58.9 Irritable bowel syndrome, unspecified; G62.9 Polyneuropathy, unspecified; F17.210 Nicotine dependence, cigarettes, uncomplicated; G44.009 Cluster headache syndrome, unspecified, not intractable; Z79.899 Other long term (current) drug therapy

== ENCOUNTER → 2019-01-02 | Outpatient (CLI) | payer OTHER ==
[~2019-01-02] MED LIST changes: -OMEP20CA3 PO; +OMEP20CA4 PO
--- NOTE | 2019-01-04 00:35 | ECWPNPC ---
PATIENT NAME: SURESH COLLAZO : 1980 GENDER: MALE VISIT DATE: 01/02/2019 DISCHARGE DATE: 01/02/19 1355 VISIT LOCKED DATE TIME: PHYSICIAN: OSIEL BROUSSARD RESOURCE: OSIEL BROUSSARD REASON FOR APPOINTMENT 1. THORACIC & SHOULDER PAIN HISTORY OF PRESENT ILLNESS HISTORY OF PRESENT ILLNESS: PAIN THE PATIENT DESCRIBES THE PAIN... 38 YEAR OLD MALE IN FOR POST TPI FOLLOW UP. HE ADMITS THAT HE DOESN'T FEEL THE TPI WORKED FOR HIS SHOULDER. HE RATES HIS PAIN AT A 7/10 CURRENTLY AND DESCRIBES IT ACHING, SORE, SHOOTING, STABBING, AND TENDER. FALL RISK SCREENING: SCREENING :NO FALLS REPORTED IN THE LAST YEAR CURRENT MEDICATIONS TAKING SOMA 350 MG TABLET 1 TABLET NEEDED ORALLY FOR SPASMS AND PAIN EVERY 8 HOURS NEEDED MDD3 TAKING TIZANIDINE HCL 2 MG TABLET 1 TABLET NEEDED ORALLY FOR SPASMS AND PAIN THREE TIMES A DAY MDD3 TAKING KETOROLAC TROMETHAMINE 10 MG TABLET 1 TABLET WITH FOOD OR MILK NEEDED ORALLY FOR PAIN EVERY 8 HRS MDD3 TAKING WELLBUTRIN XL 150 MG TABLET EXTENDED RELEASE 24 HOUR 1 TABLET IN THE MORNING ORALLY ONCE A DAY TAKING GABAPENTIN 600 MG TABLET 1 TABLET ORALLY BID TAKING CELECOXIB 200 MG CAPSULE 1 CAPSULE WITH FOOD ORALLY TWICE A DAY TAKING ANTACID 500 MG TABLET CHEWABLE 1 TABLET ORALLY ONCE A DAY NEEDED TAKING ACETAMINOPHEN 325 MG TABLET 2 TABLETS NEEDED ORALLY FOUR TIMES DAILY NEEDED TAKING LOUIE-SELTZER EXTRA STRENGTH 500 MG TABLET EFFERVESCENT 1 TABLET NEEDED ORALLY EVERY 6 HRS TAKING NAPROXEN 500 MG TABLET 1 TABLET WITH FOOD OR MILK NEEDED ORALLY EVERY 12 HRS TAKING OMEPRAZOLE 20 MG CAPSULE DELAYED RELEASE 1 CAPSULE ORALLY ONCE A DAY TAKING MELOXICAM 15 MG TABLET 1 TABLET ORALLY ONCE A DAY TAKING SILDENAFIL CITRATE 50 MG TABLET 1 TABLET NEEDED ORALLY ONCE A DAY, NOTES: NONE RECENTLY TAKING CANNABINOIDS 10 MG/ML LIQUID ORALLY DAILY AND PRN, NOTES: PATIENT HAS A MEDICAL MARIJUANA CARD AND USES IT VAPE WELL LIQUID NOT-TAKING SERTRALINE HCL 25 MG TABLET 1 TABLET ORALLY ONCE A DAY MEDICATION LIST REVIEWED AND RECONCILED WITH THE PATIENT PAST MEDICAL HISTORY FIBROMYALGIA GERD ANXIETY IRRITABLE BOWEL SYNDROME NEUROPATHY PLANTAR FASCITIS CLUSTER HEADACHES LEFT SHOULDER PAIN THORACIC BACK PAIN ALLERGIES N.K.D.A. SURGICAL HISTORY PLANTAR FASCITIS RELEASE BILATERAL 04/2017 FAMILY HISTORY FATHER: ALIVE, DIAGNOSED WITH DIABETES, HYPERTENSION MOTHER: ALIVE, BREAST CANCER, LUNG CANCER, CANCER 4 BROTHER(S) , 1 SISTER(S) - HEALTHY. 3 SON(S) - HEALTHY. NO KNOWN FAMILY HISTORY OF ANY UROLOGICALLY RELATED DISEASES\/CANCERS. \N\NMATERNAL AUNTS (2) LUPUS. SOCIAL HISTORY GENERAL: TOBACCO USE ARE YOU A:CURRENT SMOKER ARE YOU INTERESTED IN QUITTING?THINKING ABOUT QUITTING WORKING WITH PCP TO TRY AND QUIT. DECLINED INFORMATION ON STOP SMOKING CLASSES. 04/12/18924 JS COUNSELED THE PATIENT ON SMOKING CESSATION, EDUCATION [id number]/17/2019 HOW MANY CIGARETTES A DAY DO YOU SMOKE?11-20 HOW SOON AFTER YOU WAKE UP DO YOU SMOKE YOUR FIRST CIGARETTE?AFTER 60 MIN HOW OFTEN DO YOU SMOKE CIGARETTES?EVERY DAY PATIENT COUNSELED ON THE DANGERS OF TOBACCO USE AND URGED TO QUIT:01/02/2019 DIET: REGULAR. LANGUAGE VIETNAMESE. DOMESTIC VIOLENCE NONE. RECREATIONAL DRUG USE DRUG USE? PATIENT STATES HE STOPPED SMOKING MARIJUANA MORE THAN 6 MONTHS AGO EXERCISE: NO REGULAR EXERCISE. PAIN CLINIC PFS, CLERGY, PUBLIC HEALTH REFERRALS HAS THE PATIENT BEEN EDUCATED REGARDING HIS/HER PLAN OF CARE?YES HAS THE PATIENT BEEN EDUCATED REGARDING PAIN, THE RISK FOR PAIN, THE IMPORTANCE OF EFFECTIVE PAIN MANAGEMENT, AND THE PAIN ASSESSMENT PROCESS?YES LATEX QUESTIONNAIRE LATEX ALLERGY : HAVE YOU EVER DEVELOPED ANY TYPE OF REACTION AFTER HANDLING LATEX PRODUCTS SUCH RUBBER GLOVES, CONDOMS, DIAPHRAGMS, BALLOONS, SOCKS, OR UNDERWEAR?NO LATEX ALLERGY : HAVE YOU EVER DEVELOPED ANY TYPE OF REACTION DURING OR AFTER DENTAL APPOINTMENT, VAGINAL/RECTAL EXAMINATION, SURGICAL PROCEDURE, OR ANY OTHER EXPOSURE?NO LATEX RISK : HAVE YOU EVER HAD ANY DIFFICULTY BREATHING OR HIVES AFTER EATING OR HANDLING ANY FRUITS, OR VEGETABLES; SUCH KIWI, BANANAS, STONE FRUITS, OR CHESTNUTSNO LATEX RISK : DO YOU HAVE A PREVIOUS PERSONAL HISTORY OF MORE THAN NINE SURGERIES, SPINA BIFIDA, OR REPEATED CATHERIZATIONS? NO LATEX RISK : ARE YOU FREQUENTLY EXPOSED TO LATEX PRODUCTS IN YOUR OCCUPATION?NO DATE ASKED : 07/30/2018 CAFFEINE 3-4 SODAS DAILY. ADVANCE DIRECTIVE ADVANCE DIRECTIVE DISCUSSED WITH PATIENT:YES DECLINED HCP INFORMATION AND ASSISTANCE WITH HCP FORM. 09/04/18 BV VOODOO [id number] NONE MARITAL STATUS: . ALCOHOL SCREENING DID YOU HAVE A DRINK CONTAINING ALCOHOL IN THE PAST YEAR?NO POINTS0 INTERPRETATIONNEGATIVE OCCUPATION: UNEMPLOYED. SEXUAL HX HAD SEX IN THE LAST 12 MONTHS (VAGINAL, ORAL, OR ANAL)?: YES, WITH: WOMEN ONLY, USE PROTECTION?: NO, HAVE YOU EVER HAD AN STD?: NO. REVIEWED WITH PATIENT 04/12/18 0912 JSREVIEWED WITH PATIENT 08/09/18 1330 BVREVIEWED WITH PT 09/04/18 1534 BVREVIEWED WITH PATIENT 01/02/19 1311 NLJ. HOSPITALIZATION/MAJOR DIAGNOSTIC PROCEDURE NO HOSPITALIZATION HISTORY. REVIEW OF SYSTEMS REVIEWED BY: PROVIDER: URMILA GAMING-Orlin . CONSTITUTIONAL: ANY CHANGE IN YOUR MEDICAL CONDITION? NO . CHILLS NO . FEVER NO . INFECTION: DO YOU HAVE NEW INFECTIONS? NO . DO YOU HAVE HISTORY OF MRSA? NO . MUSCULOSKELETAL: ANY NEW PATTERNS OF PAIN OR NUMBNESS? YES- PAIN IS NOT ANY WORSE IT IS JUST ALWAYS THERE, BILATERAL LEGS AND HIPS ARE ACHEY- DEEP DULL PAIN, WORSE FIRST THING IN THE MORNING- STATES IT COULD BE RELATED TO FIBROMYALGIA PAIN, LEFT SHOULDER PAIN NOT ANY WORSE WELL UPPER BACK. . GASTROENTEROLOGY: ANY NEW CHANGE IN BOWEL CONTROL? NO . GENITOURINARY: ANY NEW CHANGE IN BLADDER CONTROL? NO . IS THERE A CHANCE YOU COULD BE ? NO . HEMATOLOGY/LYMPH: DO YOU TAKE ANY BLOOD THINNERS? (FOR EXAMPLE- COUMADIN, PLAVIX, AGGRENOX, PLATEL, PRADAXA, OR XARELTO) NO . WHEN WAS YOUR LAST DOSE? DATE: TIME: . NEUROLOGY: HAVE YOU FALLEN IN THE PAST 12 MONTHS? NO . ANY NEW EXTREMITY NUMBNESS OR WEAKNESS? YES- LEFT SHOULDER- PAIN WITH INTERMITTENT NUMBNESS AND TINGLING DOWN ARM AND INTO FINGERS . CARDIOLOGY: DO YOU HAVE A PACEMAKER OR DEFIBRILLATOR? NO . RESPIRATORY: HAVE YOU BEEN SICK IN THE PAST WEEK? NO . FEVER NO . FLU LIKE SYMPTOMS? NO . COUGH NO . INTEGUMENTARY: DO YOU HAVE ANY RASHES OR OPEN SORES? NO . ALLERGIC/IMMUNO: ARE YOU ALLERGIC TO IV DYE? NO . ANY NEW ALLERGIES? NO . PSYCHIATRIC: DO YOU HAVE THOUGHTS OF HURTING YOURSELF OR SOMEONE ELSE? NO . ARE YOU ABUSED, NEGLECTED, OR IN AN UNSAFE ENVIRONMENT? NO . ENDOCRINOLOGY: ARE YOU DIABETIC? NO . OTHER: DO YOU NEED ANY PRESCRIPTIONS? YES-NEEDS MELOXICAM REFILLED . IF YES, PLEASE LIST: ____MELOXICAM . ANY NEW PROBLEMS WITH YOUR MEDICATIONS? NO . WHEN DID YOU LAST EAT? ____ . WHEN DID YOU LAST DRINK? ____ . WHAT DID YOU LAST DRINK? ____ . NAME OF PERSON DRIVING YOU HOME? ____ . DO YOU HAVE ANY OTHER QUESTIONS OR CONCERNS YES- WANTS TO DISCUSS MEDS, CONCERNED AT TAKING IBUPROFEN AND MELOXICAM BOTH . VITAL SIGNS WT 229.2 LBS, HT 71 IN, BMI 31.96 INDEX, BP 119/77 MM HG, HR 81 /MIN, RR 18 /MIN, TEMP 96.9 F, OXYGEN SAT % 97%, SAFE IN ENV? (Y/N) YES, NA INITIALS SD 13:13, REVIEWED BY: AKUA. EXAMINATION GENERAL EXAMINATION: GENERALNO ACUTE DISTRESS, WELL NOURISHED AND HYDRATED. PSYCHAPPROPRIATE MOOD AND AFFECT . LUNGS:CLEAR TO AUSCULTATION BILATERALLY, NO WHEEZES, RHONCHI, RALES. HEART:NO MURMURS, REGULAR RATE AND RHYTHM. ASSESSMENTS MYALGIA, OTHER SITE - M79.18 TREATMENT OTHERS CLINICAL NOTES: 38 YEAR OLD MALE IN FOR POST TPI FOLLOW UP. HE ADMITS TO AN UPCOMING APPT WITH ORTHOPEDICS REGARDING HIS SHOULDER AND THAT HE IS CURRENTLY AWAITING AN MRI. GIVEN PRESENTING SYMPTOMS AND RESULTS OF PHYSICAL EXAMINATION RECOMMENDED AWAITING MRI AND ORTHOPEDIC CONSULTS RESULTS PRIOR TO PLANNING FUTURE PROCEDURES. WILL CONTINUE WITH SAME MEDICATIONS AT THIS TIME. PATIENT HAS EXPRESSED UNDERSTANDING OF AND WAS IN AGREEMENT WITH TREATMENT PLAN. GIVEN TIME TO ASK QUESTIONS AND EXPRESS CONCERNS. PROCEDURE CODES FA211 ESTABILISHED PATIENT [facility] FACILITY CHARGE DISPOSITION & COMMUNICATION ELECTRONICALLY SIGNED BY MEKHI LEE ON 01/03/2019 AT 12:50 PM EDT DISCLAIMER : THIS IS A VISIT SUMMARY EXTRACTED FROM THE [employer] CHART. IT IS NOT A COPY OF THE [employer] PROGRESS NOTE. MARTHA
== END ==
LOC: M PAIN 13:00
PROVIDERS: ATTEND Family Medicine
DX: M79.18 Myalgia, other site (principal); M79.7 Fibromyalgia; K21.9 Gastro-esophageal reflux disease without esophagitis; Z86.59 Personal history of other mental and behavioral disorders; G62.9 Polyneuropathy, unspecified; F17.210 Nicotine dependence, cigarettes, uncomplicated; Z79.899 Other long term (current) drug therapy

== ENCOUNTER → 2019-01-08 | Outpatient (CLI) | payer OTHER ==
[~2019-01-08] MED LIST changes: -INDO50CA11 PO; +INDO50CA91 PO
--- NOTE | 2019-01-15 00:47 | ECWPNPC ---
PATIENT NAME: SURESH COLLAZO : 1980 GENDER: MALE VISIT DATE: 01/08/2019 DISCHARGE DATE: 01/08/19 1603 VISIT LOCKED DATE TIME: PHYSICIAN: CHANDA PULLIAM MD RESOURCE: CHANDA PULLIAM MD REASON FOR APPOINTMENT 1. PRE SEDATE- PT AWARE HE IS EARLY HAD ANOTHER APPT DID NOT WANT TO GO HOME AND RETURN. HISTORY OF PRESENT ILLNESS HISTORY OF PRESENT ILLNESS: PAIN THE PATIENT DESCRIBES THE PAIN... 38 YEAR OLD MALE PATIENT WITH A HISTORY OF CHRONIC THORACIC PAIN. THE PATIENT DESCRIBES THE PAIN ACHING, STABBING, SHOOTING, SORE, TENDER, AND CONTINUOUS WITH A PAIN SCORE OF 6-9/10 DEPENDING ON PHYSICAL ACTIVITY. THE PATIENT IS HERE TODAY FOR HIS PRE-SEDATION FOLLOW UP BEFORE HIS THORACIC THERAPEUTIC FACET BLOCK. THE PATIENT STATES HE HAS BEEN SUFFERING FROM THIS PAIN FOR MANY YEARS. THE PATIENT SAYS THE PAIN IS AFFECTING HIS ABILITY TO PERFORM HIS DAILY ACTIVITIES SUCH MOVING AROUND, CLEANING HIS HOME, AND COOKING. PATIENT DENIES UNEXPLAINABLE WEIGHT LOSS, FEVER, CHILLS, NEW CHANGES ON HIS URINARY OR BOWEL CONTROL. FALL RISK SCREENING: SCREENING :NO FALLS REPORTED IN THE LAST YEAR CURRENT MEDICATIONS TAKING SOMA 350 MG TABLET 1 TABLET NEEDED ORALLY FOR SPASMS AND PAIN EVERY 8 HOURS NEEDED MDD3 TAKING TIZANIDINE HCL 2 MG TABLET 1 TABLET NEEDED ORALLY FOR SPASMS AND PAIN THREE TIMES A DAY MDD3 TAKING KETOROLAC TROMETHAMINE 10 MG TABLET 1 TABLET WITH FOOD OR MILK NEEDED ORALLY FOR PAIN EVERY 8 HRS MDD3 TAKING WELLBUTRIN XL 150 MG TABLET EXTENDED RELEASE 24 HOUR 1 TABLET IN THE MORNING ORALLY ONCE A DAY TAKING GABAPENTIN 600 MG TABLET 1 TABLET ORALLY BID TAKING CELECOXIB 200 MG CAPSULE 1 CAPSULE WITH FOOD ORALLY TWICE A DAY TAKING ANTACID 500 MG TABLET CHEWABLE 1 TABLET ORALLY ONCE A DAY NEEDED TAKING ACETAMINOPHEN 325 MG TABLET 2 TABLETS NEEDED ORALLY FOUR TIMES DAILY NEEDED TAKING LOUIE-SELTZER EXTRA STRENGTH 500 MG TABLET EFFERVESCENT 1 TABLET NEEDED ORALLY EVERY 6 HRS TAKING OMEPRAZOLE 20 MG CAPSULE DELAYED RELEASE 1 CAPSULE ORALLY ONCE A DAY TAKING MELOXICAM 15 MG TABLET 1 TABLET ORALLY ONCE A DAY TAKING SILDENAFIL CITRATE 50 MG TABLET 1 TABLET NEEDED ORALLY ONCE A DAY, NOTES: NONE RECENTLY TAKING CANNABINOIDS 10 MG/ML LIQUID ORALLY DAILY AND PRN, NOTES: PATIENT HAS A MEDICAL MARIJUANA CARD AND USES IT VAPE WELL LIQUID NOT-TAKING NAPROXEN 500 MG TABLET 1 TABLET WITH FOOD OR MILK NEEDED ORALLY EVERY 12 HRS NOT-TAKING SERTRALINE HCL 25 MG TABLET 1 TABLET ORALLY ONCE A DAY MEDICATION LIST REVIEWED AND RECONCILED WITH THE PATIENT PAST MEDICAL HISTORY FIBROMYALGIA GERD ANXIETY IRRITABLE BOWEL SYNDROME NEUROPATHY PLANTAR FASCITIS CLUSTER HEADACHES LEFT SHOULDER PAIN THORACIC BACK PAIN ALLERGIES N.K.D.A. SURGICAL HISTORY PLANTAR FASCITIS RELEASE BILATERAL 04/2017 FAMILY HISTORY FATHER: ALIVE, DIAGNOSED WITH DIABETES, HYPERTENSION MOTHER: ALIVE, BREAST CANCER, LUNG CANCER, CANCER 4 BROTHER(S) , 1 SISTER(S) - HEALTHY. 3 SON(S) - HEALTHY. NO KNOWN FAMILY HISTORY OF ANY UROLOGICALLY RELATED DISEASES\/CANCERS. \N\NMATERNAL AUNTS (2) LUPUS. SOCIAL HISTORY GENERAL: TOBACCO USE ARE YOU A:CURRENT SMOKER ARE YOU INTERESTED IN QUITTING?THINKING ABOUT QUITTING WORKING WITH PCP TO TRY AND QUIT. DECLINED INFORMATION ON STOP SMOKING CLASSES. 04/12/18 0925 JS COUNSELED THE PATIENT ON SMOKING CESSATION, EDUCATION [id number]/17/2019 HOW MANY CIGARETTES A DAY DO YOU SMOKE?11-20 HOW SOON AFTER YOU WAKE UP DO YOU SMOKE YOUR FIRST CIGARETTE?AFTER 60 MIN HOW OFTEN DO YOU SMOKE CIGARETTES?EVERY DAY PATIENT COUNSELED ON THE DANGERS OF TOBACCO USE AND URGED TO QUIT:01/02/2019 DIET: REGULAR. LANGUAGE ROMANIAN. DOMESTIC VIOLENCE NONE. RECREATIONAL DRUG USE DRUG USE? PATIENT STATES HE STOPPED SMOKING MARIJUANA MORE THAN 6 MONTHS AGO EXERCISE: NO REGULAR EXERCISE. PAIN CLINIC PFS, CLERGY, PUBLIC HEALTH REFERRALS HAS THE PATIENT BEEN EDUCATED REGARDING HIS/HER PLAN OF CARE?YES HAS THE PATIENT BEEN EDUCATED REGARDING PAIN, THE RISK FOR PAIN, THE IMPORTANCE OF EFFECTIVE PAIN MANAGEMENT, AND THE PAIN ASSESSMENT PROCESS?YES LATEX QUESTIONNAIRE LATEX ALLERGY : HAVE YOU EVER DEVELOPED ANY TYPE OF REACTION AFTER HANDLING LATEX PRODUCTS SUCH RUBBER GLOVES, CONDOMS, DIAPHRAGMS, BALLOONS, SOCKS, OR UNDERWEAR?NO LATEX ALLERGY : HAVE YOU EVER DEVELOPED ANY TYPE OF REACTION DURING OR AFTER DENTAL APPOINTMENT, VAGINAL/RECTAL EXAMINATION, SURGICAL PROCEDURE, OR ANY OTHER EXPOSURE?NO LATEX RISK : HAVE YOU EVER HAD ANY DIFFICULTY BREATHING OR HIVES AFTER EATING OR HANDLING ANY FRUITS, OR VEGETABLES; SUCH KIWI, BANANAS, STONE FRUITS, OR CHESTNUTSNO LATEX RISK : DO YOU HAVE A PREVIOUS PERSONAL HISTORY OF MORE THAN NINE SURGERIES, SPINA BIFIDA, OR REPEATED CATHERIZATIONS? NO LATEX RISK : ARE YOU FREQUENTLY EXPOSED TO LATEX PRODUCTS IN YOUR OCCUPATION?NO DATE ASKED : 07/30/2018 CAFFEINE 3-4 SODAS DAILY. ADVANCE DIRECTIVE ADVANCE DIRECTIVE DISCUSSED WITH PATIENT:YES DECLINED HCP INFORMATION AND ASSISTANCE WITH HCP FORM. 09/04/18 BV WORSHIP [id number] NONE MARITAL STATUS: . ALCOHOL SCREENING DID YOU HAVE A DRINK CONTAINING ALCOHOL IN THE PAST YEAR?NO POINTS0 INTERPRETATIONNEGATIVE OCCUPATION: UNEMPLOYED. SEXUAL HX HAD SEX IN THE LAST 12 MONTHS (VAGINAL, ORAL, OR ANAL)?: YES, WITH: WOMEN ONLY, USE PROTECTION?: NO, HAVE YOU EVER HAD AN STD?: NO. REVIEWED WITH PATIENT 04/12/18 0926 JSREVIEWED WITH PATIENT 08/09/18 1330 BVREVIEWED WITH PT 09/04/18 1534 BVREVIEWED WITH PATIENT 01/02/19 1311 NLJ. HOSPITALIZATION/MAJOR DIAGNOSTIC PROCEDURE NO HOSPITALIZATION HISTORY. REVIEW OF SYSTEMS REVIEWED BY: PROVIDER: CHANDA PULLIAM MD . CONSTITUTIONAL: ANY CHANGE IN YOUR MEDICAL CONDITION? NO . CHILLS NO . FEVER NO . INFECTION: DO YOU HAVE NEW INFECTIONS? NO . DO YOU HAVE HISTORY OF MRSA? NO . MUSCULOSKELETAL: ANY NEW PATTERNS OF PAIN OR NUMBNESS? NO . GASTROENTEROLOGY: ANY NEW CHANGE IN BOWEL CONTROL? NO . GENITOURINARY: ANY NEW CHANGE IN BLADDER CONTROL? NO . IS THERE A CHANCE YOU COULD BE ? NO . HEMATOLOGY/LYMPH: DO YOU TAKE ANY BLOOD THINNERS? (FOR EXAMPLE- COUMADIN, PLAVIX, AGGRENOX, PLATEL, PRADAXA, OR XARELTO) NO . WHEN WAS YOUR LAST DOSE? DATE: TIME: . NEUROLOGY: HAVE YOU FALLEN IN THE PAST 12 MONTHS? NO . ANY NEW EXTREMITY NUMBNESS OR WEAKNESS? NO . CARDIOLOGY: DO YOU HAVE A PACEMAKER OR DEFIBRILLATOR? NO . RESPIRATORY: HAVE YOU BEEN SICK IN THE PAST WEEK? NO . FEVER NO . FLU LIKE SYMPTOMS? NO . COUGH NO . INTEGUMENTARY: DO YOU HAVE ANY RASHES OR OPEN SORES? NO . ALLERGIC/IMMUNO: ARE YOU ALLERGIC TO IV DYE? NO . ANY NEW ALLERGIES? NO . PSYCHIATRIC: DO YOU HAVE THOUGHTS OF HURTING YOURSELF OR SOMEONE ELSE? NO . ARE YOU ABUSED, NEGLECTED, OR IN AN UNSAFE ENVIRONMENT? NO . ENDOCRINOLOGY: ARE YOU DIABETIC? NO . OTHER: DO YOU NEED ANY PRESCRIPTIONS? NO . IF YES, PLEASE LIST: ____ . ANY NEW PROBLEMS WITH YOUR MEDICATIONS? NO . WHEN DID YOU LAST EAT? ____ . WHEN DID YOU LAST DRINK? ____ . WHAT DID YOU LAST DRINK? ____ . NAME OF PERSON DRIVING YOU HOME? ____ . DO YOU HAVE ANY OTHER QUESTIONS OR CONCERNS NO . VITAL SIGNS WT 228.0 LBS, HT 71 IN, BMI 31.80 INDEX, BP 123/72 MM HG, HR 86 /MIN, RR 18 /MIN, TEMP 97.9 F, OXYGEN SAT % 95%, SAFE IN ENV? (Y/N) YES, NA INITIALS AW 1504, REVIEWED BY: TATA. EXAMINATION GENERAL EXAMINATION: PATIENT IS ALERT O X 3 AND COOPERATIVE. LUNGS CLEAR, TO AUSCULTATION. HEART: NO MURMURS OR GALLOPS; FACIAL CRANIAL NERVES ARE GROSSLY NORMAL. GOOD SYMMETRY OF FACIAL MUSCLE MOVEMENT. NORMAL VISUAL HUITRON. PAIN INCREASES OVER THE THORACIC FACET JOINTS WITH EXTENSION AND LATERAL ROTATION OF THE BACK. MRI OF THE THORACIC SPINE DONE ON 09/28/2018 SHOWS FACET ARTHROPATHY CHANGES. ASSESSMENTS SPONDYLOSIS OF THORACIC REGION WITHOUT MYELOPATHY OR RADICULOPATHY - M47.814 (PRIMARY) TREATMENT SPONDYLOSIS OF THORACIC REGION WITHOUT MYELOPATHY OR RADICULOPATHY CLINICAL NOTES: WE DISCUSSED SEVERAL ISSUES WITH MR. COLLAZO'S PAIN MANAGEMENT CASE. DUE TO THE THORACIC SPONDYLOSIS, I WOULD LIKE TO MOVE FORWARD WITH A BILATERAL THERAPEUTIC THORACIC FACET BLOCK AT THIS TIME. THE PATIENT WOULD LIKE TO MOVE FORWARD WITH IV SEDATION DUE TO DISCOMFORT, PAIN, AND ANXIETY ASSOCIATED WITH THE PROCEDURE. WE DISCUSSED THE BENEFITS, RISKS, AND ALTERNATIVES OF THE INJECTION AND THE PATIENT WOULD LIKE TO PROCEED. THE PATIENT WILL BE TRAVELING IN THE NEXT FEW DAYS AND ASKED FOR A REFILL OF HIS SOMA MEDICATION, WHICH I WILL REFILL TODAY. ISTOP _# [id number] WAS REVIEWED. THE PATIENT WILL FOLLOW UP IN SEVERAL WEEKS AFTER THE INJECTION. INSTRUCTIONS WERE GIVEN, QUESTIONS WERE ANSWERED, PATIENT REPORTS UNDERSTANDING AND AGREES WITH THE PLAN. I, [place], DOCUMENTED THE ABOVE INFORMATION ACTING A SCRIBE FOR DR. PULLIAM. I HAVE REVIEWED THE ABOVE DOCUMENT, WRITTEN BY PARK [place]IN SCRIBCarlos AND I VERIFY THAT IT IS ACCURATE. . PROCEDURE CODES FA211 ESTABILISHED PATIENT [facility] CHARGE G8427 CURRENT MEDS W/DOSAGES DOCUMENTED G8730 PAIN ASSESS POS TOOL F/U PLAN DOC DISPOSITION & COMMUNICATION FOLLOW UP 3 WEEKS ELECTRONICALLY SIGNED BY CHANDA PULLIAM MD, MD ON 01/14/2019 AT 02:02 PM EDT DISCLAIMER : THIS IS A VISIT SUMMARY [facility]ED [facility]. IT IS NOT A COPY OF THE [facility] PROGRESS NOTE. MTDD
== END ==
LOC: M PAIN 15:15
PROVIDERS: ATTEND Anesthesiology
DX: M47.814 Spondylosis without myelopathy or radiculopathy, thoracic region (principal); G89.29 Other chronic pain; M79.7 Fibromyalgia; K21.9 Gastro-esophageal reflux disease without esophagitis; Z86.59 Personal history of other mental and behavioral disorders; G62.9 Polyneuropathy, unspecified; F17.210 Nicotine dependence, cigarettes, uncomplicated; Z79.899 Other long term (current) drug therapy

== ENCOUNTER → 2019-01-15 | Outpatient (CLI) | payer OTHER | LOC: M PAIN 13:00 | PROVIDERS: ATTEND Anesthesiology | DX: M47.814 Spondylosis without myelopathy or radiculopathy, thoracic region (principal); Z53.21 Procedure and treatment not carried out due to patient leaving prior to being seen by health care provider ==

== ENCOUNTER → 2019-03-04 | Outpatient (CLI) | payer OTHER ==
[~2019-03-04] MED LIST changes: +BUPIVACAINE HCL 0.25% 30 ML VIAL As Ordered ONE; +ISOVUE-M 300 61% 15ML VIAL (Q9967) As Ordered ONE; +LIDOCAINE 1% SDV INJ 30 ML VIAL As Ordered ONE; +MIDAZOLAM INJ 2 MG/2 ML VIAL (J2250) As Ordered ONE; +TRIAMCINOLONE ACETONIDE SUSP 40 MG/ML VIAL (J3301) As Ordered ONE; +diazePAM 5 MG TAB As Ordered ONE; +fentaNYL 100 MCG/2 ML INJECTION (J3010) As Ordered ONE; +oxyCODONE 5MG TAB As Ordered ONE
--- NOTE | 2019-03-04 14:28 | REP ---
PA and lateral chest three views including two PA and single lateral view: One PA view is at end inspiration and the other is an end expiration. Comparison is 10/10/2018. There is no pneumothorax, hemothorax or pulmonary contusion. The lung mackay otherwise clear. The cardiac size is normal. The darin, mediastinum, skeletal structures are unremarkable. Impression: Negative PA and lateral chest. Electronically Signed by Orlando Salas MD 03/04/2019 02:19 P
--- NOTE | 2019-03-04 16:47 | REP ---
Thoracic spine: Two views. History: Bilateral thoracic facet block for pain. 27 seconds of fluoroscopy time is reported. Findings: A sequence of two last image hold fluoroscopically obtained spot radiographs of the thoracic spine document various needle positions and contrast injections associated with facet block procedure. Electronically Signed by Ford Martin MD 03/04/2019 04:57 P
== END ==
LOC: M PAIN 11:15
PROVIDERS: ATTEND Anesthesiology
DX: G89.29 Other chronic pain (principal); M47.814 Spondylosis without myelopathy or radiculopathy, thoracic region; M79.7 Fibromyalgia; K21.9 Gastro-esophageal reflux disease without esophagitis; F41.9 Anxiety disorder, unspecified; K58.9 Irritable bowel syndrome, unspecified; G62.9 Polyneuropathy, unspecified; M54.6 Pain in thoracic spine; M72.2 Plantar fascial fibromatosis; G44.009 Cluster headache syndrome, unspecified, not intractable; M25.512 Pain in left shoulder
CPT/HCPCS: 64490; 64491; 71046; 99152; J2250; J3010; J3301; Q9967

== ENCOUNTER → 2019-04-17 | Outpatient (CLI) | payer OTHER ==
[~2019-04-17] MED LIST changes: -BUPIVACAINE HCL 0.25% 30 ML VIAL As Ordered ONE; -ISOVUE-M 300 61% 15ML VIAL (Q9967) As Ordered ONE; -LIDOCAINE 1% SDV INJ 30 ML VIAL As Ordered ONE; -MIDAZOLAM INJ 2 MG/2 ML VIAL (J2250) As Ordered ONE; -SERT-155; +SERT50TA29; -TRIAMCINOLONE ACETONIDE SUSP 40 MG/ML VIAL (J3301) As Ordered ONE; -diazePAM 5 MG TAB As Ordered ONE; -fentaNYL 100 MCG/2 ML INJECTION (J3010) As Ordered ONE; -oxyCODONE 5MG TAB As Ordered ONE
--- NOTE | 2019-04-19 02:26 | ECWPNPC ---
PATIENT NAME: SURESH COLLAZO : 1980 GENDER: MALE VISIT DATE: 04/17/2019 DISCHARGE DATE: 04/17/19 0000 VISIT LOCKED DATE TIME: PHYSICIAN: OSIEL BROUSSARD RESOURCE: OSIEL BROUSSARD REASON FOR APPOINTMENT 1. POST PROC HISTORY OF PRESENT ILLNESS HISTORY OF PRESENT ILLNESS: PAIN THE PATIENT DESCRIBES THE PAIN... 38-YEAR-OLD MALE IN FOR POST FACET BLOCK FOLLOW-UP. HE FEELS THE PROCEDURE DID HELP HIM FOR APPROXIMATELY 3 WEEKS. HE RATES HIS PAIN AT A 7 OUT OF 10 CURRENTLY AND DESCRIBES IT ACHING, BURNING, SORE, TENDER, AND STABBING. FALL RISK SCREENING: SCREENING :NO FALLS REPORTED IN THE LAST YEAR CURRENT MEDICATIONS TAKING SOMA 350 MG TABLET 1 TABLET NEEDED ORALLY FOR SPASMS AND PAIN EVERY 8 HOURS NEEDED MDD3 TAKING TIZANIDINE HCL 2 MG TABLET 1 TABLET NEEDED ORALLY FOR SPASMS AND PAIN THREE TIMES A DAY MDD3 TAKING WELLBUTRIN XL 150 MG TABLET EXTENDED RELEASE 24 HOUR 1 TABLET IN THE MORNING ORALLY ONCE A DAY TAKING GABAPENTIN 600 MG TABLET 1 TABLET ORALLY BID TAKING CELECOXIB 200 MG CAPSULE 1 CAPSULE WITH FOOD ORALLY TWICE A DAY TAKING ANTACID 500 MG TABLET CHEWABLE 1 TABLET ORALLY ONCE A DAY NEEDED TAKING ACETAMINOPHEN 325 MG TABLET 2 TABLETS NEEDED ORALLY FOUR TIMES DAILY NEEDED TAKING LOUIE-SELTZER EXTRA STRENGTH 500 MG TABLET EFFERVESCENT 1 TABLET NEEDED ORALLY EVERY 6 HRS TAKING OMEPRAZOLE 20 MG CAPSULE DELAYED RELEASE 1 CAPSULE ORALLY ONCE A DAY TAKING MELOXICAM 15 MG TABLET 1 TABLET ORALLY ONCE A DAY TAKING SILDENAFIL CITRATE 50 MG TABLET 1 TABLET NEEDED ORALLY ONCE A DAY, NOTES: NONE RECENTLY TAKING CANNABINOIDS 10 MG/ML LIQUID ORALLY DAILY AND PRN, NOTES: NOT RECENTLY NOT-TAKING KETOROLAC TROMETHAMINE 10 MG TABLET 1 TABLET WITH FOOD OR MILK NEEDED ORALLY FOR PAIN EVERY 8 HRS MDD3 NOT-TAKING NAPROXEN 500 MG TABLET 1 TABLET WITH FOOD OR MILK NEEDED ORALLY EVERY 12 HRS NOT-TAKING SERTRALINE HCL 25 MG TABLET 1 TABLET ORALLY ONCE A DAY MEDICATION LIST REVIEWED AND RECONCILED WITH THE PATIENT PAST MEDICAL HISTORY FIBROMYALGIA GERD ANXIETY IRRITABLE BOWEL SYNDROME NEUROPATHY PLANTAR 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 SURGICAL HISTORY PLANTAR FASCITIS RELEASE BILATERAL 04/2017 FAMILY HISTORY FATHER: ALIVE, DIAGNOSED WITH DIABETES, HYPERTENSION MOTHER: ALIVE, BREAST CANCER, LUNG CANCER, OTHER MALIGNANT NEOPLASM OF UNSPECIFIED SITE 4 BROTHER(S) , 1 SISTER(S) - HEALTHY. 3 SON(S) - HEALTHY. NO KNOWN FAMILY HISTORY OF ANY UROLOGICALLY RELATED DISEASES\/CANCERS. \N\NMATERNAL AUNTS (2) LUPUS. SOCIAL HISTORY GENERAL: TOBACCO USE ARE YOU A:CURRENT SMOKER ARE YOU INTERESTED IN QUITTING?THINKING ABOUT QUITTING WORKING WITH PCP TO TRY AND QUIT. DECLINED INFORMATION ON STOP SMOKING CLASSES. COUNSELED THE PATIENT ON SMOKING CESSATION, EDUCATION [id number]/21/2019 HOW MANY CIGARETTES A DAY DO YOU SMOKE?- HOW SOON AFTER YOU WAKE UP DO YOU SMOKE YOUR FIRST CIGARETTE?AFTER 60 MIN HOW OFTEN DO YOU SMOKE CIGARETTES?EVERY DAY PATIENT COUNSELED ON THE DANGERS OF TOBACCO USE AND URGED TO QUIT:04/17/2019 DIET: REGULAR. LANGUAGE KHMER. DOMESTIC VIOLENCE NONE. RECREATIONAL DRUG USE DRUG USE? PATIENT STATES HE STOPPED SMOKING MARIJUANA MORE THAN 6 MONTHS AGO EXERCISE: NO REGULAR EXERCISE. PAIN CLINIC PFS, CLERGY, PUBLIC HEALTH REFERRALS HAS THE PATIENT BEEN EDUCATED REGARDING HIS/HER PLAN OF CARE?YES HAS THE PATIENT BEEN EDUCATED REGARDING PAIN, THE RISK FOR PAIN, THE IMPORTANCE OF EFFECTIVE PAIN MANAGEMENT, AND THE PAIN ASSESSMENT PROCESS?YES LATEX QUESTIONNAIRE LATEX ALLERGY : HAVE YOU EVER DEVELOPED ANY TYPE OF REACTION AFTER HANDLING LATEX PRODUCTS SUCH RUBBER GLOVES, CONDOMS, DIAPHRAGMS, BALLOONS, SOCKS, OR UNDERWEAR?NO LATEX ALLERGY : HAVE YOU EVER DEVELOPED ANY TYPE OF REACTION DURING OR AFTER DENTAL APPOINTMENT, VAGINAL/RECTAL EXAMINATION, SURGICAL PROCEDURE, OR ANY OTHER EXPOSURE?NO LATEX RISK : HAVE YOU EVER HAD ANY DIFFICULTY BREATHING OR HIVES AFTER EATING OR HANDLING ANY FRUITS, OR VEGETABLES; SUCH KIWI, BANANAS, STONE FRUITS, OR CHESTNUTSNO LATEX RISK : DO YOU HAVE A PREVIOUS PERSONAL HISTORY OF MORE THAN NINE SURGERIES, SPINA BIFIDA, OR REPEATED CATHERIZATIONS? NO LATEX RISK : ARE YOU FREQUENTLY EXPOSED TO LATEX PRODUCTS IN YOUR OCCUPATION?NO DATE ASKED : 07/30/2018 CAFFEINE 3-4 SODAS DAILY. ADVANCE DIRECTIVE ADVANCE DIRECTIVE DISCUSSED WITH PATIENT:YES DECLINED HCP INFORMATION AND ASSISTANCE WITH HCP FORM. CHRISTIAN [id number] NONE MARITAL STATUS: . ALCOHOL SCREENING DID YOU HAVE A DRINK CONTAINING ALCOHOL IN THE PAST YEAR?NO POINTS0 INTERPRETATIONNEGATIVE OCCUPATION: UNEMPLOYED. SEXUAL HX HAD SEX IN THE LAST 12 MONTHS (VAGINAL, ORAL, OR ANAL)?: YES, WITH: WOMEN ONLY, USE PROTECTION?: NO, HAVE YOU EVER HAD AN STD?: NO. REVIEWED WITH PATIENT 04/12/18 0926 JSREVIEWED WITH PATIENT 08/09/18 1330 BVREVIEWED WITH PT 09/04/18 1534 BVREVIEWED WITH PATIENT 01/02/19 1311 NLJREVIEWED WITH PATIENT 04/17/19 1341 JS. HOSPITALIZATION/MAJOR DIAGNOSTIC PROCEDURE DENIES PAST HOSPITALIZATION REVIEW OF SYSTEMS REVIEWED BY: PROVIDER: URMILA GAMING-Orlin . CONSTITUTIONAL: ANY CHANGE IN YOUR MEDICAL CONDITION? NO . CHILLS NO . FEVER NO . INFECTION: DO YOU HAVE NEW INFECTIONS? NO . DO YOU HAVE HISTORY OF MRSA? NO . MUSCULOSKELETAL: ANY NEW PATTERNS OF PAIN OR NUMBNESS? NO . GASTROENTEROLOGY: ANY NEW CHANGE IN BOWEL CONTROL? NO . GENITOURINARY: ANY NEW CHANGE IN BLADDER CONTROL? NO . IS THERE A CHANCE YOU COULD BE ? NO . HEMATOLOGY/LYMPH: DO YOU TAKE ANY BLOOD THINNERS? (FOR EXAMPLE- COUMADIN, PLAVIX, AGGRENOX, PLATEL, PRADAXA, OR XARELTO) NO . WHEN WAS YOUR LAST DOSE? DATE: TIME: . NEUROLOGY: HAVE YOU FALLEN IN THE PAST 12 MONTHS? NO . ANY NEW EXTREMITY NUMBNESS OR WEAKNESS? NO . CARDIOLOGY: DO YOU HAVE A PACEMAKER OR DEFIBRILLATOR? NO . RESPIRATORY: HAVE YOU BEEN SICK IN THE PAST WEEK? NO . FEVER NO . FLU LIKE SYMPTOMS? NO . COUGH NO . INTEGUMENTARY: DO YOU HAVE ANY RASHES OR OPEN SORES? NO . ALLERGIC/IMMUNO: ARE YOU ALLERGIC TO IV DYE? NO . ANY NEW ALLERGIES? NO . PSYCHIATRIC: DO YOU HAVE THOUGHTS OF HURTING YOURSELF OR SOMEONE ELSE? NO . ARE YOU ABUSED, NEGLECTED, OR IN AN UNSAFE ENVIRONMENT? NO . ENDOCRINOLOGY: ARE YOU DIABETIC? NO . OTHER: DO YOU NEED ANY PRESCRIPTIONS? YES . IF YES, PLEASE LIST: ____UNSURE, STATES PHARMACY WILL CALL . ANY NEW PROBLEMS WITH YOUR MEDICATIONS? NO . WHEN DID YOU LAST EAT? ____ . WHEN DID YOU LAST DRINK? ____ . WHAT DID YOU LAST DRINK? ____ . NAME OF PERSON DRIVING YOU HOME? ____ . DO YOU HAVE ANY OTHER QUESTIONS OR CONCERNS PLANNING TO GET FLU VACCINE SOON . VITAL SIGNS WT 226 LBS, HT 71 IN, BMI 31.52 INDEX, BP 135/83 MM HG, HR 80 /MIN, RR 18 /MIN, TEMP 96.9 F, OXYGEN SAT % 95%, SAFE IN ENV? (Y/N) YES, NA INITIALS SC 13:22, REVIEWED BY: LILLIE. EXAMINATION GENERAL EXAMINATION: GENERALNO ACUTE DISTRESS, WELL NOURISHED AND HYDRATED. PSYCHAPPROPRIATE MOOD AND AFFECT . LUNGS:CLEAR TO AUSCULTATION BILATERALLY, NO WHEEZES, RHONCHI, RALES. HEART:NO MURMURS, REGULAR RATE AND RHYTHM. BACK:POINT TENDER ALONG THORACIC AND LUMBAR SPINE. . MUSCULOSKELETAL:EQUAL STRENGTH OF THE LOWER EXTREMITIES BILATERALLY . ASSESSMENTS SPONDYLOSIS OF THORACIC REGION WITHOUT MYELOPATHY OR RADICULOPATHY - M47.814 (PRIMARY) TREATMENT SPONDYLOSIS OF THORACIC REGION WITHOUT MYELOPATHY OR RADICULOPATHY CLINICAL NOTES: 38-YEAR-OLD MALE IN FOR POST FACET BLOCK FOLLOW-UP. GIVEN PRESENTING SYMPTOMS AND RESULTS OF PHYSICAL EXAMINATION INFORMED PATIENT THIS PROFESSOR OF PATHOLOGY WOULD DISCUSS POTENTIAL THORACIC EPIDURAL WITH DR. PULLIAM AND PATIENT WOULD RECEIVE TEACHING FOR THORACIC EPIDURAL PRIOR TO DEPARTURE TODAY. PATIENT HAS EXPRESSED UNDERSTANDING OF AND WAS IN AGREEMENT WITH TREATMENT PLAN. GIVEN TIME TO ASK QUESTIONS AND EXPRESS CONCERNS. PREVENTIVE MEDICINE PAIN CLINIC TEACHING: PROCEDURE TEACHING PRINTED AND REVIEWED INFORMATION ON THORACIC EPIDURAL STEROID INJECTION PROCEDURE WITH PATIENT. ALSO REVIEWED PRE-RPOCEDURE INSTRUCTIONS. PATIENT VERBALIZED AN UNDERSTANDING. KELY MCCLAIN 04/17/2019 3:12:51 PM > . PROCEDURE CODES FA211 ESTABILISHED PATIENT [facility] CHARGE DISPOSITION & COMMUNICATION FOLLOW UP 2 MONTHS (REASON: BACK PAIN) ELECTRONICALLY SIGNED BY MEKHI LEE ON 04/18/2019 AT 12:49 PM EST DISCLAIMER : THIS IS A VISIT SUMMARY EXTRACTED FROM THE [facility] CHART. IT IS NOT A COPY OF THE [facility] PROGRESS NOTE. MARTHA
== END ==
LOC: M PAIN 13:30
PROVIDERS: ATTEND Family Medicine
DX: M47.814 Spondylosis without myelopathy or radiculopathy, thoracic region (principal)

== ENCOUNTER 2019-05-09 09:24 | Emergency (ER) | payer OTHER ==
[~2019-05-09] VITALS: Ht 182.9 cm; Wt 103.7 kg
[~2019-05-09 09:24] MED LIST changes: +OMEP-172 PO; -OMEP20CA4 PO
[2019-05-09] MEDS ORDERED: TIZA2CAP PO (09:32)
[2019-05-09] MEDS ORDERED: MELO15TA28 (09:32)
[2019-05-09] MEDS ORDERED: CARI1TAB7 (09:32)
[2019-05-09 10:16] LABS: BASO # 0.1 10^3/uL (0.0-0.2); BASO % 1.1 % (0.0-1.0); EOS # 0.2 10^3/uL (0.0-0.5); EOS % 2.8 % (0.0-3.0); HEMATOCRIT 47.1 % (42.0-52.0); HEMOGLOBIN 15.8 g/dl (13.5-17.5); LYMPH # 2.7 10^3/uL (1.5-5.0); LYMPH % 33.6 % (24.0-44.0); MEAN CORPUSCULAR HEMOGLOBIN 29.6 pg (27.0-33.0); MEAN CORPUSCULAR HGB CONC 33.5 g/dl (32.0-36.5); MEAN CORPUSCULAR VOLUME 88.4 fl (80.0-96.0); MONO # 0.6 10^3/uL (0.0-0.8); MONO % 7.3 % (0.0-5.0); NEUTROPHILS # 4.3 10^3/uL (1.5-8.5); NEUTROPHILS % 54.6 % (36.0-66.0); PLATELET COUNT, AUTOMATED 209 10^3/uL (150-450); RED BLOOD COUNT 5.33 10^6/uL (4.30-6.10); WHITE BLOOD COUNT 7.9 10^3/uL (4.0-10.0)
[2019-05-09 10:32] LABS: INR 0.98; PROTHROMBIN TIME 12.7 SECONDS (11.8-14.0)
[2019-05-09 10:33] LABS: PARTIAL THROMBOPLASTIN TIME 29.6 SECONDS (25.0-38.4)
[2019-05-09 10:45] LABS: ALBUMIN 4.2 GM/DL (3.2-5.2); ALT/SGPT 63 U/L (12-78); BILIRUBIN,DIRECT < 0.1 MG/DL (0.0-0.2); BILIRUBIN,TOTAL 0.6 MG/DL (0.2-1.0); LIPASE 227 U/L (73-393); TOTAL PROTEIN 7.7 GM/DL (6.4-8.2)
[2019-05-09] MEDS ORDERED: ISOVUE-370 76% 100ML VIAL (Q9967) As Ordered ONE (10:49)
--- NOTE | 2019-05-09 11:36 | REP ---
CT ABDOMEN AND PELVIS WITH IV BUT WITHOUT ORAL CONTRAST: HISTORY: Rectal bleeding. COMPARISON STUDY: August 25, 2015 CT CONTRAST DOSE: 100 mL of intravenous Isovue-[address] FINDINGS: Digital preliminary four corner stayer machine operator radiograph demonstrates a normal bowel gas pattern. The lung bases are clear on axial CT images. There is minimal diffuse fatty infiltration of the liver. No focal liver lesion is seen. The spleen is unremarkable. No adrenal lesion is observed. No abnormality is noted in the gallbladder or in the pancreas. The kidneys enhance symmetrically and appear morphologically intact. No retroperitoneal mass or adenopathy is seen. Seminal vesicles, prostate, and urinary bladder are unremarkable. No abdominal wall defect is seen. No bony destructive lesion is appreciated. There is no evidence of bowel obstruction. No colonic mass lesion is observed. The colon is not dilated. No mural thickening is seen. Normal appendix is noted. Small bowel loops are normal in caliber. No small bowel mass lesion is observed. No mesenteric mass or adenopathy is seen. IMPRESSION: Minimal fatty infiltration of the liver. Otherwise negative CT study of the abdomen and pelvis. No acute abnormality. Electronically Signed by Ford Martin MD 05/09/2019 01:04 P
[2019-05-09 12:20] VITALS: BP 134/75
== END 2019-05-09 12:26 | disposition home or self-care (01) ==
LOC: M ED 09:24
DX: K62.5 Hemorrhage of anus and rectum (principal); R51 Headache; R11.0 Nausea; K76.0 Fatty (change of) liver, not elsewhere classified; G89.29 Other chronic pain; M54.5 Low back pain; F41.9 Anxiety disorder, unspecified; Z79.83 Long term (current) use of bisphosphonates; Z79.891 Long term (current) use of opiate analgesic; Z79.899 Other long term (current) drug therapy
CPT/HCPCS: 36415; 74177; 80047; 80076; 83690; 85025; 85610; 85730; 99284; Q9967

== ENCOUNTER → 2019-06-19 | Outpatient (REF) | payer OTHER ==
[~2019-06-19] MED LIST changes: +CARI1TAB7; +MELO15TA28; -OMEP-172 PO; +OMEP1CAP73 PO; +TIZA2CAP PO
== END ==
LOC: M LAB REF 14:49
PROVIDERS: ATTEND Internal Medicine Gastroenterology
DX: R07.1 Chest pain on breathing (principal); K58.2 Mixed irritable bowel syndrome

== ENCOUNTER → 2019-06-19 | Outpatient (CLI) | payer OTHER ==
--- NOTE | 2019-06-24 02:53 | ECWPNPC ---
PATIENT NAME: SURESH COLLAZO : 1980 GENDER: MALE VISIT DATE: 06/19/2019 DISCHARGE DATE: 06/19/19 1520 VISIT LOCKED DATE TIME: PHYSICIAN: OSIEL BROUSSARD RESOURCE: OSIEL BROUSSARD REASON FOR APPOINTMENT 1. BACK PAIN HISTORY OF PRESENT ILLNESS GENERAL: 38-YEAR-OLD MALE IN FOR CHRONIC PAIN FOLLOW-UP. HE RATES HIS PAIN CURRENTLY AT A 7 OUT OF 10 AND DESCRIBES IT ACHING, SORE, STABBING, TENDER, AND SHOOTING. HISTORY OF PRESENT ILLNESS: PAIN THE PATIENT DESCRIBES THE PAIN... FALL RISK SCREENING: SCREENING :NO FALLS REPORTED IN THE LAST YEAR CURRENT MEDICATIONS TAKING WELLBUTRIN XL 150 MG TABLET EXTENDED RELEASE 24 HOUR 1 TABLET IN THE MORNING ORALLY ONCE A DAY TAKING GABAPENTIN 600 MG TABLET 1 TABLET ORALLY BID TAKING CELECOXIB 200 MG CAPSULE 1 CAPSULE WITH FOOD ORALLY TWICE A DAY TAKING ANTACID 500 MG TABLET CHEWABLE 1 TABLET ORALLY ONCE A DAY NEEDED TAKING ACETAMINOPHEN 325 MG TABLET 2 TABLETS NEEDED ORALLY FOUR TIMES DAILY NEEDED TAKING LOUIE-SELTZER EXTRA STRENGTH 500 MG TABLET EFFERVESCENT 1 TABLET NEEDED ORALLY EVERY 6 HRS TAKING OMEPRAZOLE 20 MG CAPSULE DELAYED RELEASE 1 CAPSULE ORALLY ONCE A DAY, NOTES: NOT TAKING CURRENTLY TAKING MELOXICAM 15 MG TABLET 1 TABLET ORALLY ONCE A DAY TAKING SILDENAFIL CITRATE 50 MG TABLET 1 TABLET NEEDED ORALLY ONCE A DAY, NOTES: NONE RECENTLY TAKING CANNABINOIDS 10 MG/ML LIQUID ORALLY DAILY AND PRN, NOTES: NOT RECENTLY TAKING TIZANIDINE HCL 2 MG TABLET 1 TABLET NEEDED ORALLY FOR SPASMS AND PAIN THREE TIMES A DAY MDD3 TAKING SOMA 350 MG TABLET 1 TABLET NEEDED ORALLY FOR SPASMS AND PAIN EVERY 8 HOURS NEEDED MDD3 TAKING PROTONIX 40 MG TABLET DELAYED RELEASE 1 TABLET ORALLY ONCE A DAY NOT-TAKING KETOROLAC TROMETHAMINE 10 MG TABLET 1 TABLET WITH FOOD OR MILK NEEDED ORALLY FOR PAIN EVERY 8 HRS MDD3 NOT-TAKING NAPROXEN 500 MG TABLET 1 TABLET WITH FOOD OR MILK NEEDED ORALLY EVERY 12 HRS NOT-TAKING SERTRALINE HCL 25 MG TABLET 1 TABLET ORALLY ONCE A DAY MEDICATION LIST REVIEWED AND RECONCILED WITH THE PATIENT PAST MEDICAL HISTORY FIBROMYALGIA GERD ANXIETY IRRITABLE BOWEL SYNDROME NEUROPATHY PLANTAR 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 SURGICAL HISTORY PLANTAR FASCITIS RELEASE BILATERAL 04/2017 FAMILY HISTORY FATHER: ALIVE, DIAGNOSED WITH DIABETES, HYPERTENSION MOTHER: ALIVE, BREAST CANCER, LUNG CANCER, OTHER MALIGNANT NEOPLASM OF UNSPECIFIED SITE 4 BROTHER(S) , 1 SISTER(S) - HEALTHY. 3 SON(S) - HEALTHY. NO KNOWN FAMILY HISTORY OF ANY UROLOGICALLY RELATED DISEASES\/CANCERS. \N\NMATERNAL AUNTS (2) LUPUS. SOCIAL HISTORY GENERAL: TOBACCO USE ARE YOU A:CURRENT SMOKER ARE YOU INTERESTED IN QUITTING?THINKING ABOUT QUITTING WORKING WITH PCP TO TRY AND QUIT. TRYING TO DO NICOTROL. COUNSELED THE PATIENT ON SMOKING CESSATION, EDUCATION [id number]/2020 HOW MANY CIGARETTES A DAY DO YOU SMOKE?11-20 HOW SOON AFTER YOU WAKE UP DO YOU SMOKE YOUR FIRST CIGARETTE?AFTER 60 MIN HOW OFTEN DO YOU SMOKE CIGARETTES?EVERY DAY PATIENT COUNSELED ON THE DANGERS OF TOBACCO USE AND URGED TO QUIT:06/19/2019 DIET: REGULAR. LANGUAGE SINHALA. DOMESTIC VIOLENCE NONE. RECREATIONAL DRUG USE DRUG USE?YES MEDICAL MARIJUANA EXERCISE: NO REGULAR EXERCISE. 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?NO PAIN CLINIC PFS, CLERGY, PUBLIC HEALTH REFERRALS HAS THE PATIENT BEEN EDUCATED REGARDING HIS/HER PLAN OF CARE?YES HAS THE PATIENT BEEN EDUCATED REGARDING PAIN, THE RISK FOR PAIN, THE IMPORTANCE OF EFFECTIVE PAIN MANAGEMENT, AND THE PAIN ASSESSMENT PROCESS?YES LATEX QUESTIONNAIRE LATEX ALLERGY : HAVE YOU EVER DEVELOPED ANY TYPE OF REACTION AFTER HANDLING LATEX PRODUCTS SUCH RUBBER GLOVES, CONDOMS, DIAPHRAGMS, BALLOONS, SOCKS, OR UNDERWEAR?NO LATEX ALLERGY : HAVE YOU EVER DEVELOPED ANY TYPE OF REACTION DURING OR AFTER DENTAL APPOINTMENT, VAGINAL/RECTAL EXAMINATION, SURGICAL PROCEDURE, OR ANY OTHER EXPOSURE?NO DATE ASKED : 07/30/2018 LATEX RISK : HAVE YOU EVER HAD ANY DIFFICULTY BREATHING OR HIVES AFTER EATING OR HANDLING ANY FRUITS, OR VEGETABLES; SUCH KIWI, BANANAS, STONE FRUITS, OR CHESTNUTSNO LATEX RISK : DO YOU HAVE A PREVIOUS PERSONAL HISTORY OF MORE THAN NINE SURGERIES, SPINA BIFIDA, OR REPEATED CATHERIZATIONS? NO LATEX RISK : ARE YOU FREQUENTLY EXPOSED TO LATEX PRODUCTS IN YOUR OCCUPATION?NO CAFFEINE 3-4 SODAS DAILY. ADVANCE DIRECTIVE ADVANCE DIRECTIVE DISCUSSED WITH PATIENT:YES 06/19/2019 DECLINED HCP INFORMATION AND ASSISTANCE WITH HCP FORM. JS YARSANI [id number] NONE MARITAL STATUS: . ALCOHOL SCREENING DID YOU HAVE A DRINK CONTAINING ALCOHOL IN THE PAST YEAR?NO POINTS0 INTERPRETATIONNEGATIVE OCCUPATION: UNEMPLOYED. SEXUAL HX HAD SEX IN THE LAST 12 MONTHS (VAGINAL, ORAL, OR ANAL)?: YES, WITH: WOMEN ONLY, USE PROTECTION?: NO, HAVE YOU EVER HAD AN STD?: NO. REVIEWED WITH PATIENT 04/12/18 0926 JSREVIEWED WITH PATIENT 08/09/18 1330 BVREVIEWED WITH PT 09/04/18 1534 BVREVIEWED WITH PATIENT 01/02/19 1311 NLJREVIEWED WITH PATIENT 04/17/19 1341 JSREVIEWED WITH PATIENT 06/19/2019 1508 JS. HOSPITALIZATION/MAJOR DIAGNOSTIC PROCEDURE NO HOSPITALIZATION HISTORY. REVIEW OF SYSTEMS REVIEWED BY: PROVIDER: URMILA GAMING-Orlin . CONSTITUTIONAL: ANY CHANGE IN YOUR MEDICAL CONDITION? NO . CHILLS NO . FEVER NO . INFECTION: DO YOU HAVE NEW INFECTIONS? NO . DO YOU HAVE HISTORY OF MRSA? NO . MUSCULOSKELETAL: ANY NEW PATTERNS OF PAIN OR NUMBNESS? NO . GASTROENTEROLOGY: ANY NEW CHANGE IN BOWEL CONTROL? NO . GENITOURINARY: ANY NEW CHANGE IN BLADDER CONTROL? NO . IS THERE A CHANCE YOU COULD BE ? NO . HEMATOLOGY/LYMPH: DO YOU TAKE ANY BLOOD THINNERS? (FOR EXAMPLE- COUMADIN, PLAVIX, AGGRENOX, PLATEL, PRADAXA, OR XARELTO) NO . WHEN WAS YOUR LAST DOSE? DATE: TIME: . NEUROLOGY: HAVE YOU FALLEN IN THE PAST 12 MONTHS? NO . ANY NEW EXTREMITY NUMBNESS OR WEAKNESS? NO . CARDIOLOGY: DO YOU HAVE A PACEMAKER OR DEFIBRILLATOR? NO . RESPIRATORY: HAVE YOU BEEN SICK IN THE PAST WEEK? NO . FEVER NO . FLU LIKE SYMPTOMS? NO . COUGH YES, SLIGHT . INTEGUMENTARY: DO YOU HAVE ANY RASHES OR OPEN SORES? NO . ALLERGIC/IMMUNO: ARE YOU ALLERGIC TO IV DYE? NO . ANY NEW ALLERGIES? NO . PSYCHIATRIC: DO YOU HAVE THOUGHTS OF HURTING YOURSELF OR SOMEONE ELSE? NO . ARE YOU ABUSED, NEGLECTED, OR IN AN UNSAFE ENVIRONMENT? NO . ENDOCRINOLOGY: ARE YOU DIABETIC? NO . OTHER: DO YOU NEED ANY PRESCRIPTIONS? NO . IF YES, PLEASE LIST: ____ . ANY NEW PROBLEMS WITH YOUR MEDICATIONS? YES - MEDICATION CHANGE TO PROTONIX . WHEN DID YOU LAST EAT? ____ . WHEN DID YOU LAST DRINK? ____ . WHAT DID YOU LAST DRINK? ____ . NAME OF PERSON DRIVING YOU HOME? ____ . DO YOU HAVE ANY OTHER QUESTIONS OR CONCERNS FLU VACCINE 05/28/2019 . VITAL SIGNS WT 234 LBS, HT 71 IN, BMI 32.63 INDEX, BP 122/63 MM HG, HR 86 /MIN, RR 18 /MIN, TEMP 97 F, OXYGEN SAT % 95%, SAFE IN ENV? (Y/N) YES, NA INITIALS AW 1445, REVIEWED BY: JS. EXAMINATION GENERAL EXAMINATION: GENERALNO ACUTE DISTRESS, WELL NOURISHED AND HYDRATED. PSYCHAPPROPRIATE MOOD AND AFFECT . LUNGS:CLEAR TO AUSCULTATION BILATERALLY, NO WHEEZES, RHONCHI, RALES. HEART:NO MURMURS, REGULAR RATE AND RHYTHM. BACK:POINT TENDER OVER THORACIC SPINE, SURROUNDING SKIN SHOWS NO ERYTHEMA, ECCHYMOSIS, INCREASED WARMTH, AND/OR SKIN ERUPTIONS NOTED. . 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 CLINICAL NOTES: 38-YEAR-OLD MALE IN FOR CHRONIC PAIN FOLLOW-UP. GIVEN PRESENTING SYMPTOMS AND RESULTS OF PHYSICAL EXAMINATION RECOMMENDED THORACIC EPIDURAL WITH POSTPROCEDURAL FOLLOW-UP. FURTHER RECOMMENDED TAPERING OFF GABAPENTIN AND STARTING LYRICA 75 MG DAILY. PATIENT HAS EXPRESSED UNDERSTANDING OF AND WAS IN AGREEMENT WITH TREATMENT PLAN. GIVEN TIME TO ASK QUESTIONS AND EXPRESS CONCERNS., ISTOP REGISTRY REVIEWED AND DEMONSTRATES COMPLLIANCE. (REF # ) BRINGS IN MEDICATIONS WHICH IS APPROPRIATE FOR WHAT WAS DISPENSED. RECENT URINE TOXICOLOGY REVIEWED. NO UNAUTHORIZED MEDICATIONS. NO ILLICIT SUBSTANCES AND PRESCRIBED MEDICATIONS WERE PRESENT. PREVENTIVE MEDICINE PAIN CLINIC TEACHING: MEDICATIONS PRINTED AND REVIEWED INFORMATION ON NEW MEDICATION, LYRICA, WITH PATIENT. PATIENT VERBALIZED AN UNDERSTANDING. KELY MCCLAIN 06/19/2019 4:36:46 PM > . PROCEDURE TEACHING PRINTED AND REVIEWED INFORMATION ON THORACIC EPIDURAL STEROID INJECTION PROCEDURE WITH PATIENT. ALSO REVIEWED PRE-PROCEDURE INSTRUCTIONS. PATIENT VERBALIZED AN UNDERSTANDING. KELY MCCLAIN 06/19/2019 4:37:37 PM > . PROCEDURE CODES FA211 ESTABILISHED PATIENT [facility] CHARGE DISPOSITION & COMMUNICATION FOLLOW UP POST PROCEDURE (REASON: THORACIC EPIDURAL [id number]) ELECTRONICALLY SIGNED BY MEKHI LEE ON 06/23/2019 AT 08:23 AM EST DISCLAIMER : THIS IS A VISIT SUMMARY EXTRACTED FROM THE [employer] CHART. IT IS NOT A COPY OF THE [employer] PROGRESS NOTE. MARTHA
== END ==
LOC: M PAIN 13:45
PROVIDERS: ATTEND Family Medicine
DX: M51.14 Intervertebral disc disorders with radiculopathy, thoracic region (principal)

== ENCOUNTER 2019-08-09 13:32 | Emergency (ER) | payer OTHER ==
[~2019-08-09] VITALS: Ht 180.3 cm; Wt 104.3 kg
[~2019-08-09 13:32] MED LIST changes: -BUPR150T3; +BUPR150T3 PO; -CARI1TAB7; +CARI1TAB7 PO; +CVS1CHW13 PO; +GABA600T4 PO; +LYRI75CA PO; +MELO15TA28 PO; +PANT20TA2 PO; +SOMA250T PO; +SUMA50TA2 PO; +TIZA4CAP6 PO; +medical marijuana INH
[2019-08-09] MEDS ORDERED: ZOFR4TAB16 PO (14:11)
[2019-08-09] MEDS ORDERED: DOXY-342 PO (14:11)
[2019-08-09 15:19] LABS: BASO # 0.1 10^3/uL (0.0-0.2); BASO % 0.8 % (0.0-1.0); EOS % 0.5 % (0.0-3.0); HEMATOCRIT 46.3 % (42.0-52.0); HEMOGLOBIN 15.5 g/dl (13.5-17.5); LYMPH # 1.9 10^3/uL (1.5-5.0); LYMPH % 28.9 % (24.0-44.0); MEAN CORPUSCULAR HGB CONC 33.5 g/dl (32.0-36.5); MEAN CORPUSCULAR VOLUME 86.5 fl (80.0-96.0); MONO # 0.4 10^3/uL (0.0-0.8); MONO % 5.3 % (0.0-5.0); NEUTROPHILS # 4.2 10^3/uL (1.5-8.5); NEUTROPHILS % 64.2 % (36.0-66.0); PLATELET COUNT, AUTOMATED 202 10^3/uL (150-450); RED BLOOD COUNT 5.35 10^6/uL (4.30-6.10); WHITE BLOOD COUNT 6.6 10^3/uL (4.0-10.0)
[2019-08-09 16:00] LABS: ALBUMIN 4.2 GM/DL (3.2-5.2); ALT/SGPT 65 U/L (12-78); BILIRUBIN,DIRECT 0.1 MG/DL (0.0-0.2); BILIRUBIN,TOTAL 0.8 MG/DL (0.2-1.0); BLOOD UREA NITROGEN 19 MG/DL (7-18); CARBON DIOXIDE LEVEL 25 MEQ/L (21-32); CHLORIDE LEVEL 108 MEQ/L (98-107); CK-MB VALUE MASS < 1.0 NG/ML (<3.6); CPK CREATINE PHOSPHOKINASE 166 U/L (39-308); CREATININE FOR GFR 1.27 MG/DL (0.70-1.30); GLOMERULAR FILTRATION RATE > 60.0 (>60); GLUCOSE, FASTING 90 MG/DL (70-100); LIPASE 139 U/L (73-393); POTASSIUM SERUM 3.9 MEQ/L (3.5-5.1); SODIUM LEVEL 139 MEQ/L (136-145); TOTAL PROTEIN 7.6 GM/DL (6.4-8.2); TROPONIN I < 0.02 NG/ML (< 0.10)
[2019-08-09] MEDS ORDERED: ONDANSETRON 4 MG ORAL DISINTEGRATING TAB (Q0162 PER 1MG) PO ONE (17:15)
[2019-08-09] MEDS ORDERED: ONDA4TAB6 PO (17:31)
[2019-08-09] MEDS ORDERED: HYDR-3363 PO (17:31)
--- NOTE | 2019-08-09 17:32 | ECGEPIP ---
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
[2019-08-09 17:57] VITALS: BP 138/80
--- NOTE | 2019-08-10 10:45 | REP ---
REASON FOR EXAM: Chest pain. COMPARISON: Multiple, the latest 03/04/2019. TWO-VIEW CHEST: FINDINGS: The superior mediastinal structures are midline. The cardiac silhouette is unremarkable in size, shape, and position. The diaphragmatic surfaces of the lungs are regular, and the costophrenic angles are clear. The pulmonary mackay are clear. The imaged osseous structures are intact. IMPRESSION: There is no acute cardiopulmonary disease. Electronically Signed by Alex Roach DO 08/10/2019 10:53 A
== END 2019-08-09 18:03 | disposition home or self-care (01) ==
LOC: M ED 13:32
DX: J20.9 Acute bronchitis, unspecified (principal); F41.1 Generalized anxiety disorder; F33.9 Major depressive disorder, recurrent, unspecified; K58.0 Irritable bowel syndrome with diarrhea; F17.210 Nicotine dependence, cigarettes, uncomplicated; Z79.899 Other long term (current) drug therapy
CPT/HCPCS: 36415; 71046; 80048; 80076; 82550; 82553; 83690; 84443; 84484; 85025; 93005; 99284; Q0162

== ENCOUNTER → 2019-11-06 | Outpatient (CLI) | payer OTHER ==
[~2019-11-06] MED LIST changes: +DOXY-342 PO; +HYDR-3363 PO; +ONDA4TAB6 PO
--- NOTE | 2019-11-06 15:29 | REP ---
Two-view chest: 11/06/2019. Indication: Chest pain. Comparison: 08/09/2019. Findings: The lungs are clear. There is no pleural effusion or pneumothorax. The cardiac silhouette is normal. Impression: Clear lungs. Electronically Signed by Austin Mccormack DO 11/06/2019 03:20 P
--- NOTE | 2019-11-09 07:58 | ECHO ---
DATE OF SERVICE: 11/06/2019 AGE: 39. REFERRING PROVIDER: Solis Herron PA-C REASON FOR THE STUDY: Chest pain. PATIENT LOCATION: Outpatient. 2D MEASUREMENTS: IVS: 1.2 cm LV: 5.0 cm LVPW: 1.1 cm LA: 3.3 cm Aorta: 3.4 cm RV: 3.7 cm IVC: 1.6 cm DOPPLER MEASUREMENTS: Peak velocity across the aortic valve: 1.1 m/s Peak velocity across the LVOT: 5.6 m/s Mitral E: 0.36 Mitral A: 0.46 with a ratio of 0.8 2D COMMENTS: 1. Normal left ventricular size, wall thickness, and low normal global left ventricular systolic function. The estimated left ventricular systolic ejection fraction is 50% to 55%. 2. Normal left atrium. Normal right atrium. The right ventricle appeared to be mildly enlarged in limited views. 3. The atrial septum appeared to be normal without evidence of defect or shunt. 4. Normal aortic root. 5. No pericardial effusion seen. 6. Minimally calcified aortic valve with normal leaflet excursion. No mitral valve, tricuspid valve, and pulmonic valve. The proximal pulmonary artery branches were not well visualized. 7. The inferior vena cava was normal in size, central venous pressure is most likely normal. DOPPLER: Only trace mitral regurgitation and trace tricuspid regurgitation detected. Abnormal relaxation pattern was noted across the mitral valve leaflets, as well as the mitral valve annulus consistent with some features of grade 1 left ventricular diastolic dysfunction. IMPRESSION: 1. Low normal global left ventricular systolic function. There are some features of left ventricular diastolic dysfunction manifested by abnormal relaxation. 2. Aortic valve sclerosis without stenosis or aortic regurgitation. 3. Trace mitral regurgitation. 4. Trace tricuspid regurgitation.
== END ==
LOC: M CARPUL 10:22
PROVIDERS: ATTEND Physician Assistant
DX: R07.1 Chest pain on breathing (principal)

== ENCOUNTER → 2020-01-20 | Outpatient (CLI) | payer OTHER ==
[~2020-01-20] MED LIST changes: +LOPE2TAB12 PO; -PANT20TA2 PO; +PANT20TA6 PO
== END ==
LOC: M PAIN 14:03
PROVIDERS: ATTEND Family Medicine
DX: M51.14 Intervertebral disc disorders with radiculopathy, thoracic region (principal)

== ENCOUNTER → 2020-02-26 | Outpatient (CLI) | payer OTHER ==
[2020-02-26 14:07] LABS: BASO # 0.1 10^3/uL (0.0-0.2); BASO % 1.1 % (0.0-1.0); EOS # 0.1 10^3/uL (0.0-0.5); EOS % 2.2 % (0.0-3.0); HEMATOCRIT 47.3 % (42.0-52.0); HEMOGLOBIN 15.7 g/dl (13.5-17.5); LYMPH # 2.1 10^3/uL (1.5-5.0); LYMPH % 32.9 % (24.0-44.0); MEAN CORPUSCULAR HEMOGLOBIN 28.9 pg (27.0-33.0); MEAN CORPUSCULAR HGB CONC 33.2 g/dl (32.0-36.5); MEAN CORPUSCULAR VOLUME 87.1 fl (80.0-96.0); MONO # 0.4 10^3/uL (0.0-0.8); MONO % 6.7 % (0.0-5.0); NEUTROPHILS # 3.7 10^3/uL (1.5-8.5); NEUTROPHILS % 56.8 % (36.0-66.0); PLATELET COUNT, AUTOMATED 200 10^3/uL (150-450); RED BLOOD COUNT 5.43 10^6/uL (4.30-6.10); WHITE BLOOD COUNT 6.4 10^3/uL (4.0-10.0)
[2020-02-26 14:31] LABS: ALT/SGPT 111 U/L (12-78); C REACTIVE PROTEIN QUANTITATIV < 0.30 MG/DL (0.00-0.30); CREATININE FOR GFR 1.31 MG/DL (0.70-1.30); GLOMERULAR FILTRATION RATE > 60.0 (>60); RHEUMATOID FACTOR QUANT 16.1 IU/ML (<15.0)
[2020-02-26 14:50] LABS: ERYTHROCYTE SEDIMENTATION RATE 3 mm/hr (0-15)
[2020-02-28 00:09] LABS: ANTINUCLEAR ANTIBODIES DIRECT Negative (Negative); CYCLIC CITRULLINATED PEPTIDE 3 units (0-19)
--- NOTE | 2020-03-04 09:11 | REPPI ---
BILATERAL HAND SERIES: 8-VIEWS HISTORY: Chronic pain and swelling. FINDINGS: Four views of the left hand demonstrate overall normal mineralization. Bones, joints, and soft tissues are unremarkable. Four views of the right hand demonstrate overall normal mineralization as well. No erosive change is seen. Joint spaces are preserved. No soft tissue findings. IMPRESSION: Negative radiographs of the hands bilaterally. MTDD
== END ==
LOC: M PLAIMG 11:38
PROVIDERS: ATTEND Student in an Organized Health Care Education/Training Program
DX: M79.641 Pain in right hand (principal); M79.642 Pain in left hand

== ENCOUNTER → 2020-03-25 | Outpatient (CLI) | payer OTHER ==
--- NOTE | 2020-03-27 06:16 | ECWPNPC ---
PATIENT NAME: SURESH COLLAZO : 1980 GENDER: MALE VISIT DATE: 03/25/2020 DISCHARGE DATE: 03/25/20 1428 VISIT LOCKED DATE TIME: PHYSICIAN: OSIEL BROUSSARD RESOURCE: OSIEL BROUSSARD REASON FOR APPOINTMENT 1. BACK/LEFT SHOULDER - NEEDS MEDICATION REFILL HISTORY OF PRESENT ILLNESS DEPRESSION SCREENING: PHQ-9 LITTLE INTEREST OR PLEASURE IN DOING THINGSSEVERAL DAYS FEELING DOWN, DEPRESSED, OR HOPELESSSEVERAL DAYS TROUBLE FALLING OR STAYING ASLEEP, OR SLEEPING TOO MUCHNEARLY EVERY DAY FEELING TIRED OR HAVING LITTLE ENERGYNEARLY EVERY DAY POOR APPETITE OR OVEREATING SEVERAL DAYS FEELING BAD ABOUT YOURSELF-OR THAT YOU ARE A FAILURE OR HAVE LET YOURSELF OR YOUR FAMILY DOWN NOT AT ALL TROUBLE CONCENTRATING ON THINGS, SUCH READING THE NEWSPAPER OR WATCHING TELEVISION NOT AT ALL MOVING OR SPEAKING SO SLOWLY THAT OTHER PEOPLE COULD HAVE NOTICED. OR THE OPPOSITE- BEING SO FIDGETY OR RESTLESS THAT YOU HAVE BEEN MOVING AROUND A LOT MORE THAN USUALNOT AT ALL THOUGHTS THAT YOU WOULD BE BETTER OFF , OR OF HURTING YOURSELF IN SOME WAY?NOT AT ALL TOTAL SCORE:9 INTERPRETATIONMILD DEPRESSION PHQ-2 (2015 EDITION) LITTLE INTEREST OR PLEASURE IN DOING THINGS?SEVERAL DAYS FEELING DOWN, DEPRESSED, OR HOPELESS?SEVERAL DAYS TOTAL SCORE2 39-YEAR-OLD MALE IN FOR CHRONIC PAIN FOLLOW-UP. HE RATES HIS PAIN CURRENTLY AT A 6 OUT OF 10 AND DESCRIBES IT BURNING, AND SHARP. HE FEELS THE MEDICATIONS ARE HELPFUL BUT DOES WONDER IF AN INCREASE IN MEDICATION WOULD BE OF MORE BENEFIT. GENERAL: -. FALL RISK SCREENING: SCREENING :NO FALLS REPORTED IN THE LAST YEAR PAIN SCREENING: PATIENT HAS A COMPLAINT OF ACUTE OR CHRONIC PAIN :YES LOCATION OF PAIN:NECK, LEFT SHOULDER, MID BACK, FEET INTENSITY OF PAIN (SCALE OF 1 TO 10):6 WHAT DOES YOUR PAIN FEEL LIKE:BURNING, SHARP DURATION:INTERMITTENT PAIN IS INCREASED BY:ACTIVITIES, PROLONGED STANDING PAIN IS DECREASED BY:USE OF PAIN MEDICATIONS NURSING NOTE: -. PAIN CENTER INTAKE QUESTIONS: DO YOU HAVE A HISTORY OF MRSA? :NO DO YOU TAKE A BLOOD THINNERS? :NO DO YOU HAVE ANY BLEEDING DISORDERS? :NO ANY NEW NUMBNESS OR WEAKNESS IN YOUR LEGS OR ARMS? :NO ANY PACEMAKER,DEFIBRILLATOR, OR DORSAL COLUMN STIMULATOR? :NO DO YOU HAVE ANY RASHES OR OPEN SORES? :NO ARE YOU ALLERGIC TO IV DYE? :NO ARE YOU DIABETIC? :NO ANY NEW PROBLEMS WITH YOUR MEDICATIONS? :NO HAVE YOU RECEIVED A VACCINE IN THE PAST 30 DAYS? :YES IF SO WHAT VACCINE AND WHEN? INFLUENZA WITHIN PAST MONTH, UNSURE OF DATE DO YOU PLAN TO RECEIVE A VACCINE IN THE NEXT 21 DAYS? :NO DO YOU NEED ANY PRESCRIPTION? :YES PREGABALIN DO YOU TAKE ANY IMMUNOSUPPRESSIVE MEDICATIONS? :NO IS THERE A CHANCE YOU COULD BE ? :NO ARE YOU BREAST FEEDING? :NO CURRENT MEDICATIONS TAKING ANTACID 500 MG TABLET CHEWABLE 1 TABLET ORALLY ONCE A DAY NEEDED TAKING ACETAMINOPHEN 325 MG TABLET 2 TABLETS NEEDED ORALLY FOUR TIMES DAILY NEEDED TAKING LOUIE-SELTZER EXTRA STRENGTH 500 MG TABLET EFFERVESCENT 1 TABLET NEEDED ORALLY EVERY 6 HRS TAKING MELOXICAM 15 MG TABLET 1 TABLET ORALLY ONCE A DAY TAKING SILDENAFIL CITRATE 50 MG TABLET 1 TABLET NEEDED ORALLY ONCE A DAY, NOTES: NONE RECENTLY TAKING TIZANIDINE HCL 2 MG TABLET 1 TABLET NEEDED ORALLY FOR SPASMS AND PAIN THREE TIMES A DAY MDD3 TAKING HYDROXYZINE HCL 25 MG TABLET 1 TABLET NEEDED ORALLY EVERY 8 HRS TAKING SUMATRIPTAN SUCCINATE 50 MG TABLET 1 TABLET AT LEAST 2 HOURS BETWEEN DOSES NEEDED ORALLY TWICE A DAY, NOTES: TAKE ONE TABLET ON THE ONSET OF SYMPTOMS TAKING MULTI FOR HIM - TABLET DIRECTED ORALLY DAILY TAKING SOMA 350 MG TABLET 1 TABLET NEEDED ORALLY FOR SPASMS AND PAIN EVERY 8 HOURS NEEDED MDD3 TAKING LYRICA 100 MG CAPSULE 1 CAPSULE ORALLY ONCE A DAY TAKING FAMOTIDINE 40 MG TABLET 1 TABLET NEEDED ORALLY ONCE A DAY TAKING VITAMIN D3 SUPER STRENGTH 50 MCG (2000 UT) TABLET 2 TABLET ORALLY ONCE A DAY TAKING ONDANSETRON 4 MG TABLET DISINTEGRATING 1 TABLET ON THE TONGUE AND ALLOW TO DISSOLVE ORALLY ONCE A DAY NOT-TAKING GABAPENTIN 600 MG TABLET 1 TABLET ORALLY ONCE A DAY NOT-TAKING PANTOPRAZOLE SODIUM 20 MG TABLET DELAYED RELEASE 1 TABLET ORALLY ONCE A DAY NOT-TAKING LEVAQUIN 500 MG TABLET 1 TABLET ORALLY ONCE A DAY NOT-TAKING WELLBUTRIN XL 150 MG TABLET EXTENDED RELEASE 24 HOUR 1 TABLET IN THE MORNING ORALLY ONCE A DAY NOT-TAKING CELECOXIB 200 MG CAPSULE 1 CAPSULE WITH FOOD ORALLY TWICE A DAY NOT-TAKING OMEPRAZOLE 20 MG CAPSULE DELAYED RELEASE 1 CAPSULE ORALLY ONCE A DAY, NOTES: NOT TAKING CURRENTLY NOT-TAKING CANNABINOIDS 10 MG/ML LIQUID ORALLY DAILY AND PRN, NOTES: NOT RECENTLY NOT-TAKING PROTONIX 40 MG TABLET DELAYED RELEASE 1 TABLET ORALLY ONCE A DAY NOT-TAKING LYRICA 75 MG CAPSULE 1 CAPSULE ORALLY ONCE A DAY NOT-TAKING KETOROLAC TROMETHAMINE 10 MG TABLET 1 TABLET WITH FOOD OR MILK NEEDED ORALLY FOR PAIN EVERY 8 HRS MDD3 NOT-TAKING NAPROXEN 500 MG TABLET 1 TABLET WITH FOOD OR MILK NEEDED ORALLY EVERY 12 HRS NOT-TAKING SERTRALINE HCL 25 MG TABLET 1 TABLET ORALLY ONCE A DAY MEDICATION LIST REVIEWED AND RECONCILED WITH THE PATIENT PAST MEDICAL HISTORY FIBROMYALGIA GERD ANXIETY/PANIC ATTACKS IRRITABLE BOWEL SYNDROME NEUROPATHY PLANTAR 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 SURGICAL HISTORY PLANTAR FASCITIS RELEASE BILATERAL 04/2017 VASECTOMY FAMILY HISTORY FATHER: ALIVE, DIAGNOSED WITH HYPERTENSION, DIABETES MOTHER: 64 YRS, BREAST CANCER, LUNG CANCER, OTHER MALIGNANT NEOPLASM OF UNSPECIFIED SITE 4 BROTHER(S) , 1 SISTER(S) - HEALTHY. 3 SON(S) - HEALTHY. NO KNOWN FAMILY HISTORY OF ANY UROLOGICALLY RELATED DISEASES\/CANCERS. \N\NMATERNAL AUNTS (2) LUPUS. SOCIAL HISTORY GENERAL: TOBACCO USE ARE YOU A:FORMER SMOKER LATEX QUESTIONNAIRE LATEX ALLERGY : HAVE YOU EVER DEVELOPED ANY TYPE OF REACTION AFTER HANDLING LATEX PRODUCTS SUCH RUBBER GLOVES, CONDOMS, DIAPHRAGMS, BALLOONS, SOCKS, OR UNDERWEAR?NO LATEX ALLERGY : HAVE YOU EVER DEVELOPED ANY TYPE OF REACTION DURING OR AFTER DENTAL APPOINTMENT, VAGINAL/RECTAL EXAMINATION, SURGICAL PROCEDURE, OR ANY OTHER EXPOSURE?NO DATE ASKED : 07/30/2018 LATEX RISK : HAVE YOU EVER HAD ANY DIFFICULTY BREATHING OR HIVES AFTER EATING OR HANDLING ANY FRUITS, OR VEGETABLES; SUCH KIWI, BANANAS, STONE FRUITS, OR CHESTNUTSNO LATEX RISK : DO YOU HAVE A PREVIOUS PERSONAL HISTORY OF MORE THAN NINE SURGERIES, SPINA BIFIDA, OR REPEATED CATHERIZATIONS? NO LATEX RISK : ARE YOU FREQUENTLY EXPOSED TO LATEX PRODUCTS IN YOUR OCCUPATION?NO ALCOHOL SCREENING DID YOU HAVE A DRINK CONTAINING ALCOHOL IN THE PAST YEAR?NO POINTS0 INTERPRETATIONNEGATIVE RECREATIONAL DRUG USE DRUG USE?YES MEDICAL MARIJUANA CAFFEINE 3-4 SODAS DAILY. SEXUAL HX HAD SEX IN THE LAST 12 MONTHS (VAGINAL, ORAL, OR ANAL)?: YES, WITH: WOMEN ONLY, USE PROTECTION?: NO, HAVE YOU EVER HAD AN STD?: NO. PROTESTANT [id number] NONE LANGUAGE BELIZEAN. LEARNING BARRIERS / SPECIAL NEEDS CHANGE FROM LAST VISIT?NO BARRIERS TO LEARNING?NO HEARING IMPAIRED?NO VISION IMPAIRED?YES COGNITIVELY IMPAIRED?NO :CORRECTIVE LENSES READINESS TO LEARN?YES LEARNING PREFERENCES?NO LEARNING CAPABILITIES PRESENT?YES EMOTIONAL BARRIERS?NO SPECIAL DEVICES?YES :CANE USES WALKING STICK NEEDED SOD STRIPPER NEEDED?NO DOMESTIC VIOLENCE NONE. OCCUPATION: UNEMPLOYED. DIET: REGULAR. EXERCISE: NO REGULAR EXERCISE. MARITAL STATUS: . PAIN CLINIC PFS, CLERGY, PUBLIC HEALTH REFERRALS HAS THE PATIENT BEEN EDUCATED REGARDING HIS/HER PLAN OF CARE?YES HAS THE PATIENT BEEN EDUCATED REGARDING PAIN, THE RISK FOR PAIN, THE IMPORTANCE OF EFFECTIVE PAIN MANAGEMENT, AND THE PAIN ASSESSMENT PROCESS?YES ADVANCE DIRECTIVE ADVANCE DIRECTIVE DISCUSSED WITH PATIENT:YES 06/19/2019 DECLINED HCP INFORMATION AND ASSISTANCE WITH HCP FORM. JS REVIEWED WITH PATIENT 04/12/18 0926 JSREVIEWED WITH PATIENT 08/09/18 1330 BVREVIEWED WITH PT 09/04/18 1534 BVREVIEWED WITH PATIENT 01/02/19 1311 NLJREVIEWED WITH PATIENT 04/17/19 1341 JSREVIEWED WITH PATIENT 06/19/2019 1508 JS. HOSPITALIZATION/MAJOR DIAGNOSTIC PROCEDURE NO HOSPITALIZATION HISTORY. REVIEW OF SYSTEMS CONSTITUTIONAL: ANY RECENT FEVER NO . CHILLS NO . WEIGHT CHANGE OF UNKNOWN REASONS NO . GASTROENTEROLOGY: NEW UNEXPLAINABLE CHANGES IN BOWEL CONTROL NO . CONSTIPATION NO . GENITOURINARY: ANY NEW CHANGE IN BLADDER CONTROL? NO . NEUROLOGY: NEW ONSET DIZZINESS OR NEUROLOGICAL CHANGES NOT MENTIONED NO . NEW NUMBNESS OR PAIN PATTERNS NOT MENTIONED AND PERTINENT TO TODAY'S VISIT NO . CARDIOLOGY: NEW CHEST PRESSURE NO . NEW CHEST PAIN NO . RESPIRATORY: UNEXPLAINABLE COUGH NO . NEW SHORTNESS OF BREATH NO . VITAL SIGNS WT 238.6 LBS, HT 71 IN, BMI 33.27 INDEX, BP 117/85 MM HG, HR 92 /MIN, RR 18 /MIN, TEMP 96.8 F, OXYGEN SAT % 96%, SAFE IN ENV? (Y/N) YES, NA INITIALS 13:59 SCREVIEWED Chino CABRERA RN 03/25/20 1430. EXAMINATION GENERAL EXAMINATION: GENERALNO ACUTE DISTRESS, WELL NOURISHED AND HYDRATED. PSYCHAPPROPRIATE MOOD AND AFFECT . LUNGS:CLEAR TO AUSCULTATION BILATERALLY, NO WHEEZES, RHONCHI, RALES. HEART:NO MURMURS, REGULAR RATE AND RHYTHM. ASSESSMENTS FIBROMYALGIA - M79.7 (PRIMARY) TREATMENT FIBROMYALGIA REFILL LYRICA CAPSULE, 150 MG, 1 CAPSULE, ORALLY, ONCE A DAY, 30 DAYS, 30 CAPSULE NOTES: 39-YEAR-OLD MALE IN FOR CHRONIC PAIN FOLLOW-UP. GIVEN PRESENTING SYMPTOMS RECOMMEND INCREASING LYRICA TO 150 MG DAILY WITH FOLLOW-UP IN 2 MONTHS. PATIENT HAS EXPRESSED UNDERSTANDING OF AND WAS IN AGREEMENT WITH TREATMENT PLAN. GIVEN TIME TO ASK QUESTIONS AND EXPRESS CONCERNS. , ISTOP REGISTRY REVIEWED AND DEMONSTRATES COMPLLIANCE. (REF # [id number] ) BRINGS IN MEDICATIONS WHICH IS APPROPRIATE FOR WHAT WAS DISPENSED. PROCEDURE CODES FA211 ESTABILISHED PATIENT [facility] CHARGE DISPOSITION & COMMUNICATION FOLLOW UP 2 MONTHS (REASON: FIBROMYALGIA) ELECTRONICALLY SIGNED BY MEKHI LEE ON 03/26/2020 AT 11:09 AM EDT DISCLAIMER : THIS IS A VISIT SUMMARY EXTRACTED FROM THE [employer] CHART. IT IS NOT A COPY OF THE [employer] PROGRESS NOTE. MARTHA
== END ==
LOC: M PAIN 13:45
PROVIDERS: ATTEND Family Medicine
DX: M79.7 Fibromyalgia (principal); K21.9 Gastro-esophageal reflux disease without esophagitis; Z86.59 Personal history of other mental and behavioral disorders; Z87.891 Personal history of nicotine dependence; Z79.899 Other long term (current) drug therapy

== ENCOUNTER → 2020-05-25 | Outpatient (CLI) | payer OTHER ==
--- NOTE | 2020-05-25 09:04 | REP ---
INDICATION: ELEVATED LFT'S ? HEPATIC ABNORMALITY LABS 1ST US 2ND. COMPARISON: . Comparison CT study November 12, 2019.. TECHNIQUE: Right upper quadrant sonography. FINDINGS: Scanning through the right upper quadrant of the abdomen demonstrates a normal sized, thin-walled gallbladder without evidence of stone or polyp. Common bile duct is normal measuring 0.6 cm in greatest diameter. No focal liver lesion is seen. However, the liver is very echogenic and insonates poorly consistent with fatty infiltration. It is less than optimally seen as result. Liver size is normal. No pancreatic abnormality is observed. No right renal abnormality is seen. There is no evidence of ascites. The right kidney measures 11.1 x 5.7 x 4.2 cm. IMPRESSION: Very echogenic liver consistent with fatty infiltration. As result, liver not well-visualized internally. Otherwise unremarkable right upper quadrant sonography.. <Electronically signed by Cam Martin > 05/25/20 0900
[2020-05-25 10:42] LABS: ACETAMINOPHEN LEVEL < 2.0 UG/ML (10.0-30.0); ALT/SGPT 110 U/L (12-78); BILIRUBIN,DIRECT < 0.1 MG/DL (0.0-0.2); BILIRUBIN,TOTAL 0.6 MG/DL (0.2-1.0); HEPATITIS A ANTIBODY IGM NEGATIVE (NEGATIVE); HEPATITIS B CORE ANTIBODY IGM NEGATIVE (NEGATIVE); HEPATITIS B SURFACE ANTIGEN NEGATIVE (NEGATIVE); HEPATITIS C VIRUS ABY INDEX 0.1 INDEX (<0.8); TOTAL PROTEIN 7.4 GM/DL (6.4-8.2)
== END ==
LOC: M LAB 08:13
PROVIDERS: ATTEND Physician Assistant
DX: R94.5 Abnormal results of liver function studies (principal); K76.0 Fatty (change of) liver, not elsewhere classified
CPT/HCPCS: 36415; 76705; 80076; 82977; 86705; 86709; 86803; 87340; G0480

== ENCOUNTER → 2020-06-24 | Outpatient (CLI) | payer OTHER ==
[~2020-06-24] MED LIST changes: -BUPR150T3 PO; +BUPR150T4 PO
--- NOTE | 2020-06-25 07:57 | ECWPNPC ---
PATIENT NAME: SURESH COLLAZO : 1980 GENDER: MALE VISIT DATE: 06/24/2020 DISCHARGE DATE: 06/24/20 1539 VISIT LOCKED DATE TIME: PHYSICIAN: OSIEL BROUSSARD RESOURCE: OSIEL BROUSSARD REASON FOR APPOINTMENT 1. BACK/LEFT SHOULDER HISTORY OF PRESENT ILLNESS GENERAL: -PERMISSION REQUESTED AND RECEIVED FROM PATIENT TO PERFORM TELEPHONE VISIT. 39-YEAR-OLD MALE IN FOR CHRONIC PAIN FOLLOW-UP. HE RATES HIS PAIN CURRENTLY AT A 6 OUT OF 10 AND DESCRIBES IT ACHING, SHARP, AND SHOOTING. AT LAST CLINIC VISIT PATIENT'S LYRICA WAS INCREASED AND HE ADMITS TODAY THAT HE FINDS THIS BENEFICIAL. FALL RISK SCREENING: SCREENING :NO FALLS REPORTED IN THE LAST YEAR PAIN SCREENING: PATIENT HAS A COMPLAINT OF ACUTE OR CHRONIC PAIN :YES LOCATION OF PAIN:RIGHT SHOULDER, UPPER BACK, MID BACK BACK PAIN NUMBER IS 9 OR 10 TODAY INTENSITY OF PAIN (SCALE OF 1 TO 10):6 WHAT DOES YOUR PAIN FEEL LIKE:ACHING, SHARP, SHOOTING DURATION:CONTINOUS, CONSTANT, STEADY, AWAKENS FROM SLEEP PAIN IS INCREASED BY:ACTIVITIES, PROLONGED STANDING BENDING, LIFTING PAIN IS DECREASED BY:USE OF PAIN MEDICATIONS CHANGING POSITION FREQUENTLY NURSING NOTE: -. PAIN CENTER INTAKE QUESTIONS: DO YOU HAVE A HISTORY OF MRSA? :NO DO YOU TAKE A BLOOD THINNERS? :NO DO YOU HAVE ANY BLEEDING DISORDERS? :NO ANY NEW NUMBNESS OR WEAKNESS IN YOUR LEGS OR ARMS? :YES NEW MILD NUMBNESS IN BILATERAL FEET ANY PACEMAKER,DEFIBRILLATOR, OR DORSAL COLUMN STIMULATOR? :NO DO YOU HAVE ANY RASHES OR OPEN SORES? :NO ARE YOU ALLERGIC TO IV DYE? :NO ARE YOU DIABETIC? :NO ANY NEW PROBLEMS WITH YOUR MEDICATIONS? :NO HAVE YOU RECEIVED A VACCINE IN THE PAST 30 DAYS? :NO DO YOU PLAN TO RECEIVE A VACCINE IN THE NEXT 21 DAYS? :NO DO YOU NEED ANY PRESCRIPTION? :YES PREGABALIN DO YOU TAKE ANY IMMUNOSUPPRESSIVE MEDICATIONS? :NO IS THERE A CHANCE YOU COULD BE ? :NO ARE YOU BREAST FEEDING? :NO CURRENT MEDICATIONS TAKING ANTACID 500 MG TABLET CHEWABLE 1 TABLET ORALLY ONCE A DAY NEEDED TAKING ACETAMINOPHEN 325 MG TABLET 2 TABLETS NEEDED ORALLY FOUR TIMES DAILY NEEDED TAKING LOUIE-SELTZER EXTRA STRENGTH 500 MG TABLET EFFERVESCENT 1 TABLET NEEDED ORALLY EVERY 6 HRS TAKING MELOXICAM 15 MG TABLET 1 TABLET ORALLY ONCE A DAY TAKING SILDENAFIL CITRATE 50 MG TABLET 1 TABLET NEEDED ORALLY ONCE A DAY, NOTES: NONE RECENTLY TAKING TIZANIDINE HCL 2 MG TABLET 1 TABLET NEEDED ORALLY FOR SPASMS AND PAIN THREE TIMES A DAY MDD3 TAKING HYDROXYZINE HCL 25 MG TABLET 1 TABLET NEEDED ORALLY EVERY 8 HRS TAKING SUMATRIPTAN SUCCINATE 50 MG TABLET 1 TABLET AT LEAST 2 HOURS BETWEEN DOSES NEEDED ORALLY TWICE A DAY, NOTES: TAKE ONE TABLET ON THE ONSET OF SYMPTOMS TAKING MULTI FOR HIM - TABLET DIRECTED ORALLY DAILY TAKING SOMA 350 MG TABLET 1 TABLET NEEDED ORALLY FOR SPASMS AND PAIN EVERY 8 HOURS NEEDED MDD3 TAKING FAMOTIDINE 40 MG TABLET 1 TABLET NEEDED ORALLY ONCE A DAY TAKING VITAMIN D3 SUPER STRENGTH 50 MCG (2000 UT) TABLET 2 TABLET ORALLY ONCE A DAY TAKING ONDANSETRON 4 MG TABLET DISINTEGRATING 1 TABLET ON THE TONGUE AND ALLOW TO DISSOLVE ORALLY ONCE A DAY TAKING LYRICA 150 MG CAPSULE 1 CAPSULE ORALLY ONCE A DAY TAKING CANNABINOIDS 10 MG/ML LIQUID ORALLY DAILY AND PRN NOT-TAKING GABAPENTIN 600 MG TABLET 1 TABLET ORALLY ONCE A DAY NOT-TAKING PANTOPRAZOLE SODIUM 20 MG TABLET DELAYED RELEASE 1 TABLET ORALLY ONCE A DAY NOT-TAKING LEVAQUIN 500 MG TABLET 1 TABLET ORALLY ONCE A DAY NOT-TAKING WELLBUTRIN XL 150 MG TABLET EXTENDED RELEASE 24 HOUR 1 TABLET IN THE MORNING ORALLY ONCE A DAY NOT-TAKING CELECOXIB 200 MG CAPSULE 1 CAPSULE WITH FOOD ORALLY TWICE A DAY NOT-TAKING OMEPRAZOLE 20 MG CAPSULE DELAYED RELEASE 1 CAPSULE ORALLY ONCE A DAY, NOTES: NOT TAKING CURRENTLY NOT-TAKING PROTONIX 40 MG TABLET DELAYED RELEASE 1 TABLET ORALLY ONCE A DAY NOT-TAKING LYRICA 75 MG CAPSULE 1 CAPSULE ORALLY ONCE A DAY NOT-TAKING KETOROLAC TROMETHAMINE 10 MG TABLET 1 TABLET WITH FOOD OR MILK NEEDED ORALLY FOR PAIN EVERY 8 HRS MDD3 NOT-TAKING NAPROXEN 500 MG TABLET 1 TABLET WITH FOOD OR MILK NEEDED ORALLY EVERY 12 HRS NOT-TAKING SERTRALINE HCL 25 MG TABLET 1 TABLET ORALLY ONCE A DAY MEDICATION LIST REVIEWED AND RECONCILED WITH THE PATIENT PAST MEDICAL HISTORY FIBROMYALGIA GERD ANXIETY/PANIC ATTACKS IRRITABLE BOWEL SYNDROME NEUROPATHY PLANTAR 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 SOCIAL HISTORY GENERAL: TOBACCO USE ARE YOU A:FORMER SMOKER LATEX QUESTIONNAIRE LATEX ALLERGY : HAVE YOU EVER DEVELOPED ANY TYPE OF REACTION AFTER HANDLING LATEX PRODUCTS SUCH RUBBER GLOVES, CONDOMS, DIAPHRAGMS, BALLOONS, SOCKS, OR UNDERWEAR?NO LATEX ALLERGY : HAVE YOU EVER DEVELOPED ANY TYPE OF REACTION DURING OR AFTER DENTAL APPOINTMENT, VAGINAL/RECTAL EXAMINATION, SURGICAL PROCEDURE, OR ANY OTHER EXPOSURE?NO LATEX RISK : HAVE YOU EVER HAD ANY DIFFICULTY BREATHING OR HIVES AFTER EATING OR HANDLING ANY FRUITS, OR VEGETABLES; SUCH KIWI, BANANAS, STONE FRUITS, OR CHESTNUTSNO LATEX RISK : DO YOU HAVE A PREVIOUS PERSONAL HISTORY OF MORE THAN NINE SURGERIES, SPINA BIFIDA, OR REPEATED CATHERIZATIONS? NO LATEX RISK : ARE YOU FREQUENTLY EXPOSED TO LATEX PRODUCTS IN YOUR OCCUPATION?NO DATE ASKED : 06/24/2020 ALCOHOL USE: NO. ALCOHOL SCREENING DID YOU HAVE A DRINK CONTAINING ALCOHOL IN THE PAST YEAR?NO POINTS0 INTERPRETATIONNEGATIVE RECREATIONAL DRUG USE DRUG USE?YES MEDICAL MARIJUANA CAFFEINE 3-4 SODAS DAILY. SEXUAL HX HAD SEX IN THE LAST 12 MONTHS (VAGINAL, ORAL, OR ANAL)?: YES, WITH: WOMEN ONLY, USE PROTECTION?: NO, HAVE YOU EVER HAD AN STD?: NO. JEW [id number] NONE LANGUAGE GREEK. 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 DIET: REGULAR. EXERCISE: NO REGULAR EXERCISE. MARITAL STATUS: . REVIEWED WITH PATIENT 04/12/18 0926 JSREVIEWED WITH PATIENT 08/09/18 1330 BVREVIEWED WITH PT 09/04/18 1534 BVREVIEWED WITH PATIENT 01/02/19 1311 NLJREVIEWED WITH PATIENT 04/17/19 1341 JSREVIEWED WITH PATIENT 06/19/2019 1508 JS. REVIEW OF SYSTEMS CONSTITUTIONAL: ANY RECENT FEVER NO . CHILLS NO . WEIGHT CHANGE OF UNKNOWN REASONS NO . GASTROENTEROLOGY: NEW UNEXPLAINABLE CHANGES IN BOWEL CONTROL NO . CONSTIPATION NO . GENITOURINARY: ANY NEW CHANGE IN BLADDER CONTROL? NO . NEUROLOGY: NEW ONSET DIZZINESS OR NEUROLOGICAL CHANGES NOT MENTIONED NO . NEW NUMBNESS OR PAIN PATTERNS NOT MENTIONED AND PERTINENT TO TODAY'S VISIT NO . CARDIOLOGY: NEW CHEST PRESSURE NO . NEW CHEST PAIN NO . RESPIRATORY: UNEXPLAINABLE COUGH NO . NEW SHORTNESS OF BREATH NO . VITAL SIGNS WT 238 LBS, HT 71 IN, BMI 33.19 INDEX, SAFE IN ENV? (Y/N) YES, REVIEWED BY: AP UNABLE TO OBTAIN VITAL SIGNS DUE TO VIRTUAL VISIT. Padmini NAYLOR RN. EXAMINATION GENERAL EXAMINATION: PSYCHAPPROPRIATE MOOD AND AFFECT , ORIENTED X 3. ASSESSMENTS FIBROMYALGIA - M79.7 (PRIMARY) TREATMENT FIBROMYALGIA INCREASE LYRICA CAPSULE, 200 MG, 1 CAPSULE, ORALLY, ONCE A DAY, 30 DAYS, 30, REFILLS 2 NOTES: 39-YEAR-OLD MALE IN FOR CHRONIC PAIN FOLLOW-UP. GIVEN PRESENTING SYMPTOMS RECOMMEND INCREASING LYRICA TO 200 MG 1 CAPSULE DAILY WITH FOLLOW-UP IN 3 MONTHS TO DETERMINE EFFICACY OF TREATMENT. PATIENT HAS EXPRESSED UNDERSTANDING OF AND WAS IN AGREEMENT WITH TREATMENT PLAN. GIVEN TIME TO ASK QUESTIONS AND EXPRESS CONCERNS. , ISTOP REGISTRY REVIEWED AND DEMONSTRATES COMPLLIANCE. (REF # [id number] ) VISIT CONDUCTED VIA TELEPHONE. TIME SPENT WITH PATIENT 11 MINUTES. DISPOSITION & COMMUNICATION FOLLOW UP 3 MONTHS (REASON: FIBROMYALGIA) ELECTRONICALLY SIGNED BY MEKHI LEE ON 06/24/2020 AT 03:31 PM EST DISCLAIMER : THIS IS A VISIT SUMMARY EXTRACTED FROM THE [employer] CHART. IT IS NOT A COPY OF THE [employer] PROGRESS NOTE. MTDD
== END ==
LOC: M PAIN 14:45
PROVIDERS: ATTEND Family Medicine
DX: M79.7 Fibromyalgia (principal); K21.9 Gastro-esophageal reflux disease without esophagitis; F41.0 Panic disorder [episodic paroxysmal anxiety]; K58.9 Irritable bowel syndrome, unspecified; G62.9 Polyneuropathy, unspecified; M72.2 Plantar fascial fibromatosis; M54.6 Pain in thoracic spine; G44.009 Cluster headache syndrome, unspecified, not intractable; Z87.891 Personal history of nicotine dependence; Z79.1 Long term (current) use of non-steroidal anti-inflammatories (NSAID); Z79.899 Other long term (current) drug therapy

== ENCOUNTER → 2020-09-02 | Outpatient (REF) | payer OTHER ==
[~2020-09-02] MED LIST changes: +BUPR150T12 PO; -BUPR150T4 PO
== END ==
LOC: M LAB REF 17:15
PROVIDERS: ATTEND Nurse Practitioner Adult Health
DX: R06.02 Shortness of breath (principal)

== ENCOUNTER → 2020-09-07 | Outpatient (CLI) | payer OTHER ==
[2020-09-07 17:11] LABS: HEMOGLOBIN A1c 5.2 %
[2020-09-07 17:47] LABS: ALBUMIN 3.8 GM/DL (3.2-5.2); ALT/SGPT 99 U/L (12-78); BILIRUBIN,TOTAL 0.4 MG/DL (0.2-1.0); BLOOD UREA NITROGEN 18 MG/DL (7-18); CALCIUM LEVEL 8.8 MG/DL (8.5-10.1); CARBON DIOXIDE LEVEL 25 MEQ/L (21-32); CHLORIDE LEVEL 107 MEQ/L (98-107); CREATININE FOR GFR 0.96 MG/DL (0.70-1.30); FREE T4 1.01 NG/DL (0.76-1.46); GLOMERULAR FILTRATION RATE > 60.0 (>60); GLUCOSE, FASTING 108 MG/DL (70-100); POTASSIUM SERUM 4.3 MEQ/L (3.5-5.1); SODIUM LEVEL 141 MEQ/L (136-145); TOTAL PROTEIN 6.9 GM/DL (6.4-8.2)
== END ==
LOC: M LAB 16:05
PROVIDERS: ATTEND Physician Assistant
DX: R63.5 Abnormal weight gain (principal)

== ENCOUNTER → 2020-09-30 | Outpatient (CLI) | payer OTHER ==
--- NOTE | 2020-10-02 06:35 | ECWPNPC ---
PATIENT NAME: SURESH COLLAZO : 1980 GENDER: MALE VISIT DATE: 09/30/2020 DISCHARGE DATE: 09/30/20 1452 VISIT LOCKED DATE TIME: PHYSICIAN: OSIEL BROUSSARD RESOURCE: OSIEL BROUSSARD REASON FOR APPOINTMENT 1. 3 MONTH FIBROMYALGIA HISTORY OF PRESENT ILLNESS GENERAL: 40-YEAR-OLD MALE IN FOR CHRONIC PAIN FOLLOW-UP. HE FEELS MEDICATIONS ARE HELPFUL AND DENIES MED SIDE EFFECTS AT THIS TIME. ALLERGIES NO[ALLERGIES VERIFIED] REVIEW OF SYSTEMS CONSTITUTIONAL: ANY RECENT FEVER NO . CHILLS NO . WEIGHT CHANGE OF UNKNOWN REASONS NO . GASTROENTEROLOGY: NEW UNEXPLAINABLE CHANGES IN BOWEL CONTROL NO . CONSTIPATION NO . GENITOURINARY: ANY NEW CHANGE IN BLADDER CONTROL? NO . NEUROLOGY: NEW ONSET DIZZINESS OR NEUROLOGICAL CHANGES NOT MENTIONED NO . NEW NUMBNESS OR PAIN PATTERNS NOT MENTIONED AND PERTINENT TO TODAY'S VISIT NO . CARDIOLOGY: NEW CHEST PRESSURE NO . PATIENT DENIES NO . RESPIRATORY: UNEXPLAINABLE COUGH NO . NEW SHORTNESS OF BREATH NO . VITAL SIGNS WT 253.2 LBS, HT 71 IN, BMI 35.31 INDEX, BP 137/88 MM HG, HR 103 /MIN, RR 18 /MIN, TEMP 97.3 F, OXYGEN SAT % 96%, NA INITIALS SC 14:25. EXAMINATION GENERAL EXAMINATION: GENERALNO ACUTE DISTRESS, WELL NOURISHED AND HYDRATED. PSYCHAPPROPRIATE MOOD AND AFFECT . LUNGS:CLEAR TO AUSCULTATION BILATERALLY, NO WHEEZES, RHONCHI, RALES. HEART:NO MURMURS, REGULAR RATE AND RHYTHM. ASSESSMENTS FIBROMYALGIA - M79.7 (PRIMARY), RISK: (NULL) TREATMENT FIBROMYALGIA CONTINUE LYRICA CAPSULE, 75 MG, 1 CAPSULE, ORALLY, ONCE A DAY, 30 DAYS, 30 CAPSULE, REFILLS 2 REFILL LYRICA CAPSULE, 200 MG, 1 CAPSULE, ORALLY, ONCE A DAY, 30 DAYS, 30, REFILLS 2 NOTES: 40-YEAR-OLD MALE IN FOR CHRONIC PAIN FOLLOW-UP. GIVEN PRESENTING SYMPTOMS RECOMMENDED CONTINUATION OF CURRENT MEDICATION REGIMEN WITH FOLLOW-UP IN 3 MONTHS. PATIENT HAS EXPRESSED UNDERSTANDING OF AND WAS IN AGREEMENT WITH TREATMENT PLAN. GIVEN TIME TO ASK QUESTIONS AND EXPRESS CONCERNS. ISTOP REGISTRY REVIEWED AND DEMONSTRATES COMPLLIANCE. (REF # [id number] ) BRINGS IN MEDICATIONS WHICH IS APPROPRIATE FOR WHAT WAS DISPENSED. RECENT URINE TOXICOLOGY REVIEWED. NO UNAUTHORIZED MEDICATIONS. NO ILLICIT SUBSTANCES AND PRESCRIBED MEDICATIONS WERE PRESENT. PROCEDURE CODES FA211 ESTABILISHED PATIENT [facility] CHARGE DISPOSITION & COMMUNICATION FOLLOW UP 3 MONTHS (REASON: FIBROMYALGIA ) ELECTRONICALLY SIGNED BY MEKHI LEE ON 10/01/2020 AT 01:42 PM EDT DISCLAIMER : THIS IS A VISIT SUMMARY EXTRACTED FROM THE [employer] CHART. IT IS NOT A COPY OF THE [employer] PROGRESS NOTE. MARTHA
== END ==
LOC: M PAIN 14:45
PROVIDERS: ATTEND Family Medicine
DX: M79.7 Fibromyalgia (principal); Z79.899 Other long term (current) drug therapy

== ENCOUNTER → 2020-09-30 | Outpatient (CLI) | payer OTHER ==
[~2020-09-30] MED LIST changes: +METHACHOLINE KIT (J7674) INH ONE
--- NOTE | 2020-09-30 14:06 | PFTRPT ---
Height: 71.00 Inches Weight: 250.00 Lbs BSA: 2.32 Diagnosis: R06.02 DATE: 09/30/2020 ORDERED BY: Yola Laureano NP QUALITY: Study of excellent technical quality. PROCEDURE: Under protocol, methacholine was administered. Some difficulty with effort is noted. Even after a maximal dose of 25 mg or 188.875 CDUs, no provocation dose ever achieved. Flow rates did return to baseline post bronchodilator administration. IMPRESSION: Negative methacholine challenge study. MTDD
== END ==
LOC: M CARPUL 13:09
PROVIDERS: ATTEND Nurse Practitioner Adult Health
DX: R06.02 Shortness of breath (principal)
CPT/HCPCS: 94070; J7674

== ENCOUNTER → 2020-10-21 | Outpatient (CLI) | payer OTHER ==
[~2020-10-21] MED LIST changes: -METHACHOLINE KIT (J7674) INH ONE
--- NOTE | 2020-10-26 14:51 | SLEEPHOME ---
DATE: 10/21/2020 ORDERED BY: Yola Laureano NP Diagnostic home sleep testing was performed due to concern for the obstructive sleep apnea syndrome. For testing, a nocturnal T3 respiratory monitoring device was used. Continuous record was made of pulse, oxygen saturation, air flow, chest and abdominal strain, and body position. Eleven hours and 59 minutes of data were reviewed. There were 6 hours and 6 minutes marked as time in bed. During the interval marked time in bed, there were 405 respiratory events identified of 10 seconds in duration or greater for a respiratory event index of 66.3. The events were primarily obstructive. However, 177 central and mixed apneas were also seen. Baseline pulse rate was 73 beats per minute. Pulse rate ranged 55 to 123. Baseline saturation was 94%. Saturations fell to 70%. Testing was performed in both the supine and nonsupine positions. IMPRESSION: Abnormal home sleep testing with repetitive respiratory events and oxygen desaturations to 70% and a respiratory event index of 66.3 are consistent with the obstructive sleep apnea syndrome. RECOMMENDATION: Given the frequency of central events, complex apnea is also entertained and referral for formal sleep evaluation recommended. cc: MARY ANN AltamiranoC
== END ==
LOC: M SLEEP HO 13:09
PROVIDERS: ATTEND Nurse Practitioner Adult Health
DX: G47.30 Sleep apnea, unspecified (principal)

== ENCOUNTER → 2020-11-25 | Outpatient (CLI) | payer OTHER ==
--- NOTE | 2020-11-30 16:25 | SLEEPCENT ---
NOCTURNAL POLYSOMNOGRAPHY DATE: 11/25/2020 ORDERED BY: Yola Laureano NP Nocturnal polysomnography was performed for the titration of pressure therapy in this patient with a clinical diagnosis of obstructive sleep apnea syndrome, supported by home testing, revealing a respiratory event index of 66.3. For testing a ResMed AirFit F20 full face mask of medium size was used, 4 cm of water pressure were applied to the circuit, and the lights were extinguished. 7 hours and 35 minutes of data were reviewed. There were 352.5 minutes of sleep identified. Sleep latency was normal at 10 minutes. REM latency was normal at 77.5 minutes. Sleep architecture improved with optimal pressure therapy and there were four REM cycles noted. Overall sleep efficiency was 78.8%. The electrocardiogram showed a sinus rhythm with an average heart rate of 65 beats per minute. EEG showed normal waveforms for wake and sleep stages. Persistence of respiratory events prompted an increase in CPAP pressure. Central events emerged and a BiLevel device was tried late in the study. Best sleep was seen on a CPAP pressure of +10. Some activity was seen in the limb leads, but limb movement arousals were few at 5.4 per hour. IMPRESSION: Obstructive sleep apnea syndrome (G47.33). RECOMMENDATION: Nightly use of pressure therapy 10 cm of water.
== END ==
LOC: M SLEEP 22:00
PROVIDERS: ATTEND Nurse Practitioner Adult Health
DX: G47.33 Obstructive sleep apnea (adult) (pediatric) (principal)

== ENCOUNTER → 2020-12-29 | Outpatient (CLI) | payer OTHER ==
--- NOTE | 2020-12-30 23:38 | ECWPNPC ---
PATIENT NAME: SURESH COLLAZO : 1980 GENDER: MALE VISIT DATE: 12/29/2020 DISCHARGE DATE: 12/29/20956 VISIT LOCKED DATE TIME: PHYSICIAN: OSIEL BROUSSARD RESOURCE: OSIEL BROUSSARD REASON FOR APPOINTMENT 1. FIBROMYALGIA HISTORY OF PRESENT ILLNESS DEPRESSION SCREENING: PHQ-9 LITTLE INTEREST OR PLEASURE IN DOING THINGSSEVERAL DAYS FEELING DOWN, DEPRESSED, OR HOPELESSSEVERAL DAYS TROUBLE FALLING OR STAYING ASLEEP, OR SLEEPING TOO MUCHNOT AT ALL FEELING TIRED OR HAVING LITTLE ENERGYNOT AT ALL POOR APPETITE OR OVEREATING MORE THAN HALF THE DAYS FEELING BAD ABOUT YOURSELF-OR THAT YOU ARE A FAILURE OR HAVE LET YOURSELF OR YOUR FAMILY DOWN NOT AT ALL TROUBLE CONCENTRATING ON THINGS, SUCH READING THE NEWSPAPER OR WATCHING TELEVISION NOT AT ALL MOVING OR SPEAKING SO SLOWLY THAT OTHER PEOPLE COULD HAVE NOTICED. OR THE OPPOSITE- BEING SO FIDGETY OR RESTLESS THAT YOU HAVE BEEN MOVING AROUND A LOT MORE THAN USUALSEVERAL DAYS THOUGHTS THAT YOU WOULD BE BETTER OFF , OR OF HURTING YOURSELF IN SOME WAY?NOT AT ALL TOTAL SCORE:5 INTERPRETATIONMILD DEPRESSION PHQ-2 (2015 EDITION) LITTLE INTEREST OR PLEASURE IN DOING THINGS?SEVERAL DAYS FEELING DOWN, DEPRESSED, OR HOPELESS?SEVERAL DAYS TOTAL SCORE2 GENERAL: HPI 40-YEAR-OLD MALE IN FOR CHRONIC PAIN FOLLOW-UP. HE FEELS HIS MEDICATIONS ARE HELPFUL AND DENIES MED SIDE EFFECTS AT THIS TIME. HE RATES HIS PAIN CURRENTLY AT A 6 OUT OF 10 AND DESCRIBES IT ACHING, SHARP, DULL, AND PULSATING.. -. FALL RISK SCREENING: SCREENING : NO FALLS REPORTED IN THE LAST YEAR. PAIN SCREENING: PATIENT HAS A COMPLAINT OF ACUTE OR CHRONIC PAIN :YES LOCATION OF PAIN:NECK INTENSITY OF PAIN (SCALE OF 1 TO 10):6 WHAT DOES YOUR PAIN FEEL LIKE:ACHING, SHARP, OTHER DULL, PULSATING DURATION:CONTINOUS, CONSTANT, AWAKENS FROM SLEEP PAIN IS INCREASED BY:ACTIVITIES, PROLONGED STANDING PROLONGED SITTING PAIN IS DECREASED BY:USE OF PAIN MEDICATIONS, SITTING HEAT IS TEMPORARY NURSING NOTE: -. PAIN CENTER INTAKE QUESTIONS: DO YOU HAVE A HISTORY OF MRSA? :NO DO YOU TAKE A BLOOD THINNERS? :NO DO YOU HAVE ANY BLEEDING DISORDERS? :NO ANY NEW NUMBNESS OR WEAKNESS IN YOUR LEGS OR ARMS? :NO ANY PACEMAKER,DEFIBRILLATOR, OR DORSAL COLUMN STIMULATOR? :NO DO YOU HAVE ANY RASHES OR OPEN SORES? :NO ARE YOU ALLERGIC TO IV DYE? :NO ARE YOU DIABETIC? :NO ANY NEW PROBLEMS WITH YOUR MEDICATIONS? :NO HAVE YOU RECEIVED A VACCINE IN THE PAST 30 DAYS? :NO DO YOU PLAN TO RECEIVE A VACCINE IN THE NEXT 21 DAYS? :NO DO YOU NEED ANY PRESCRIPTION? :YES ALL DO YOU TAKE ANY IMMUNOSUPPRESSIVE MEDICATIONS? :NO IS THERE A CHANCE YOU COULD BE ? :NO ARE YOU BREAST FEEDING? 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 SOCIAL HISTORY GENERAL: TOBACCO USE ARE YOU A:FORMER SMOKER LATEX QUESTIONNAIRE LATEX ALLERGY : HAVE YOU EVER DEVELOPED ANY TYPE OF REACTION AFTER HANDLING LATEX PRODUCTS SUCH RUBBER GLOVES, CONDOMS, DIAPHRAGMS, BALLOONS, SOCKS, OR UNDERWEAR?NO LATEX ALLERGY : HAVE YOU EVER DEVELOPED ANY TYPE OF REACTION DURING OR AFTER DENTAL APPOINTMENT, VAGINAL/RECTAL EXAMINATION, SURGICAL PROCEDURE, OR ANY OTHER EXPOSURE?NO LATEX RISK : HAVE YOU EVER HAD ANY DIFFICULTY BREATHING OR HIVES AFTER EATING OR HANDLING ANY FRUITS, OR VEGETABLES; SUCH KIWI, BANANAS, STONE FRUITS, OR CHESTNUTSNO LATEX RISK : DO YOU HAVE A PREVIOUS PERSONAL HISTORY OF MORE THAN NINE SURGERIES, SPINA BIFIDA, OR REPEATED CATHERIZATIONS? NO LATEX RISK : ARE YOU FREQUENTLY EXPOSED TO LATEX PRODUCTS IN YOUR OCCUPATION?NO DATE ASKED : 12/29/2020 ALCOHOL USE: NO. ALCOHOL SCREENING DID YOU HAVE A DRINK CONTAINING ALCOHOL IN THE PAST YEAR?NO POINTS0 INTERPRETATIONNEGATIVE RECREATIONAL DRUG USE DRUG USE?YES MEDICAL MARIJUANA CAFFEINE 3-4 SODAS DAILY. SEXUAL HX HAD SEX IN THE LAST 12 MONTHS (VAGINAL, ORAL, OR ANAL)?: YES, WITH: WOMEN ONLY, USE PROTECTION?: NO, HAVE YOU EVER HAD AN STD?: NO. HINDUISM [id number] NONE LANGUAGE KOREAN. 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 DIET: REGULAR. EXERCISE: NO REGULAR EXERCISE. MARITAL STATUS: . REVIEWED WITH PATIENT 04/12/18 0926 JSREVIEWED WITH PATIENT 08/09/18 1330 BVREVIEWED WITH PT 09/04/18 1534 BVREVIEWED WITH PATIENT 01/02/19 1311 NLJREVIEWED WITH PATIENT 04/17/19 1341 JSREVIEWED WITH PATIENT 06/19/2019 1508 JS. REVIEW OF SYSTEMS CONSTITUTIONAL: ANY RECENT FEVER NO . CHILLS NO . WEIGHT CHANGE OF UNKNOWN REASONS NO . GASTROENTEROLOGY: NEW UNEXPLAINABLE CHANGES IN BOWEL CONTROL NO . CONSTIPATION NO . GENITOURINARY: ANY NEW CHANGE IN BLADDER CONTROL? NO . NEUROLOGY: NEW ONSET DIZZINESS OR NEUROLOGICAL CHANGES NOT MENTIONED NO . NEW NUMBNESS OR PAIN PATTERNS NOT MENTIONED AND PERTINENT TO TODAY'S VISIT NO . CARDIOLOGY: NEW CHEST PRESSURE NO . PATIENT DENIES NO . RESPIRATORY: UNEXPLAINABLE COUGH NO . NEW SHORTNESS OF BREATH NO . VITAL SIGNS WT 246.2 LBS, WT-KG 111.68 KG, HT 71 IN, BMI 34.33 INDEX, BP 120/78 MM HG, HR 95 /MIN, RR 18 /MIN, TEMP 97.7 F, OXYGEN SAT % 97%, SAFE IN ENV? (Y/N) YES, NA INITIALS AW 0939, REVIEWED BY: SERG DILLON MA. EXAMINATION GENERAL EXAMINATION: GENERALNO ACUTE DISTRESS, WELL NOURISHED AND HYDRATED. PSYCHAPPROPRIATE MOOD AND AFFECT . LUNGS:CLEAR TO AUSCULTATION BILATERALLY, NO WHEEZES, RHONCHI, RALES. HEART:NO MURMURS, REGULAR RATE AND RHYTHM. ASSESSMENTS FIBROMYALGIA - M79.7 (PRIMARY) TREATMENT FIBROMYALGIA STOP LYRICA CAPSULE, 75 MG, 1 CAPSULE, ORALLY, ONCE A DAY NOTES: 40-YEAR-OLD MALE IN FOR CHRONIC PAIN FOLLOW-UP. GIVEN PRESENTING SYMPTOMS RECOMMEND CONTINUATION OF CURRENT MEDICATION REGIMEN WITH FOLLOW-UP IN 4 MONTHS. PATIENT HAS EXPRESSED UNDERSTANDING OF AND WAS IN AGREEMENT WITH TREATMENT PLAN. GIVEN TIME TO ASK QUESTIONS AND EXPRESS CONCERNS. ISTOP REGISTRY REVIEWED AND DEMONSTRATES COMPLLIANCE. (REF #[id number] ). OTHERS REFILL CARISOPRODOL TABLET, 350 MG, 1 TABLET NEEDED, ORALLY, FOUR TIMES A DAY, 30 DAYS, 18 REFILL TIZANIDINE HCL TABLET, 4 MG, 1 TABLET NEEDED, ORALLY, THREE TIMES A DAY PRN, 90 DAYS, 270 PROCEDURE CODES FA211 ESTABILISHED PATIENT [facility] CHARGE DISPOSITION & COMMUNICATION FOLLOW UP 4 MONTHS (REASON: FIBROMYALGIA ) ELECTRONICALLY SIGNED BY MEKHI LEE ON 12/30/2020 AT 07:46 AM EDT DISCLAIMER : THIS IS A VISIT SUMMARY EXTRACTED FROM THE [employer] CHART. IT IS NOT A COPY OF THE [employer] PROGRESS NOTE. ELLID
== END ==
LOC: M PAIN 09:30
PROVIDERS: ATTEND Family Medicine
DX: M79.7 Fibromyalgia (principal); Z86.59 Personal history of other mental and behavioral disorders; Z87.891 Personal history of nicotine dependence; Z79.899 Other long term (current) drug therapy

== ENCOUNTER → 2021-03-11 | Outpatient (CLI) | payer OTHER ==
[2021-03-11 18:23] LABS: HEMATOCRIT 46.8 % (42.0-52.0); HEMOGLOBIN 15.5 g/dl (13.5-17.5); MEAN CORPUSCULAR HEMOGLOBIN 28.4 pg (27.0-33.0); MEAN CORPUSCULAR HGB CONC 33.1 g/dl (32.0-36.5); MEAN CORPUSCULAR VOLUME 85.9 fl (80.0-96.0); PLATELET COUNT, AUTOMATED 196 10^3/uL (150-450); RED BLOOD COUNT 5.45 10^6/uL (4.30-6.10)
[2021-03-11 18:53] LABS: BLOOD UREA NITROGEN 33 MG/DL (7-18); CALCIUM LEVEL 10.2 MG/DL (8.5-10.1); CARBON DIOXIDE LEVEL 29 MEQ/L (21-32); CHLORIDE LEVEL 108 MEQ/L (98-107); CHOLESTEROL LEVEL 210 MG/DL (<200); CHOLESTEROL RISK RATIO 7.241 (<5); GLOMERULAR FILTRATION RATE 59.2 (>60); GLUCOSE, FASTING 94 MG/DL (70-100); HDL CHOLESTEROL 29 MG/DL (>40); NON-HDL-C 181 MG/DL; POTASSIUM SERUM 4.4 MEQ/L (3.5-5.1); SODIUM LEVEL 140 MEQ/L (136-145); TRIGLYCERIDES LEVEL 535 MG/DL (<150)
== END ==
LOC: M LAB 16:23
PROVIDERS: ATTEND Nurse Practitioner Family
DX: R06.02 Shortness of breath (principal); E11.9 Type 2 diabetes mellitus without complications

== ENCOUNTER → 2021-04-13 | Outpatient (REF) | payer OTHER | LOC: M LAB REF 17:26 | PROVIDERS: ATTEND Physician Assistant | DX: J06.9 Acute upper respiratory infection, unspecified (principal) ==

== ENCOUNTER → 2021-09-09 | Outpatient (CLI) | payer OTHER ==
[~2021-09-09] MED LIST changes: -DICY20TA11 PO; +DICY20TA20 PO; +OMEP-173; -OMEP-218
== END ==
LOC: M PAIN 14:30
PROVIDERS: ATTEND Nurse Practitioner Family
DX: M54.6 Pain in thoracic spine (principal); M79.7 Fibromyalgia; R73.03 Prediabetes; Z86.59 Personal history of other mental and behavioral disorders; Z87.891 Personal history of nicotine dependence; Z79.899 Other long term (current) drug therapy

== ENCOUNTER → 2021-09-22 | Outpatient (REF) | payer OTHER ==
[2021-09-22 18:33] LABS: APPEARANCE, URINE CLEAR (CLEAR); BACTERIA, URINE AUTO NEGATIVE (NEGATIVE); BILIRUBIN, URINE AUTO NEGATIVE (NEGATIVE); BLOOD, URINE BLOOD NEGATIVE (NEGATIVE); COLOR, URINE YELLOW (YELLOW); GLUCOSE, URINE (UA) AUTO NEGATIVE (NEGATIVE); KETONE, URINE AUTO NEGATIVE (NEGATIVE); LEUKOCYTE ESTERASE, URINE AUTO NEGATIVE (NEGATIVE); MUCUS, URINE SMALL (NEGATIVE); NITRITE, URINE AUTO NEGATIVE (NEGATIVE); PROTEIN, URINE AUTO NEGATIVE (NEGATIVE); RBC, URINE AUTO 0 /HPF (0-3); SPECIFIC GRAVITY URINE AUTO 1.019 (1.002-1.035); SQUAMOUS EPITHELIAL CELL UR AU 0 /HPF (0-6); UROBILINOGEN, URINE AUTO 0.2 mg/dL (0.0-2.0); WBC, URINE AUTO 0 /HPF (0-3)
== END ==
LOC: M SMT 16:47
PROVIDERS: ATTEND Nurse Practitioner Women's Health
DX: R39.15 Urgency of urination (principal)

== ENCOUNTER → 2021-10-27 | Outpatient (CLI) | payer OTHER | LOC: M PAIN 14:45 | PROVIDERS: ATTEND Nurse Practitioner Family | DX: M54.6 Pain in thoracic spine (principal); M79.7 Fibromyalgia; R73.03 Prediabetes; Z86.59 Personal history of other mental and behavioral disorders; Z87.891 Personal history of nicotine dependence; Z79.899 Other long term (current) drug therapy ==

== ENCOUNTER → 2021-12-15 | Outpatient (CLI) | payer OTHER | LOC: M RAD 16:29 | PROVIDERS: ATTEND Nurse Practitioner Family | DX: M54.6 Pain in thoracic spine (principal) ==

== ENCOUNTER → 2021-12-29 | Outpatient (CLI) | payer OTHER ==
[2021-12-29 16:32] LABS: BASO # 0.1 10^3/uL (0.0-0.2); BASO % 1.3 % (0.0-1.0); EOS # 0.1 10^3/uL (0.0-0.5); HEMATOCRIT 47.2 % (42.0-52.0); HEMOGLOBIN 15.6 g/dl (13.5-17.5); LYMPH # 2.6 10^3/uL (1.5-5.0); LYMPH % 37.1 % (24.0-44.0); MEAN CORPUSCULAR HEMOGLOBIN 29.1 pg (27.0-33.0); MEAN CORPUSCULAR HGB CONC 33.1 g/dl (32.0-36.5); MEAN CORPUSCULAR VOLUME 87.9 fl (80.0-96.0); MONO # 0.5 10^3/uL (0.0-0.8); MONO % 7.1 % (2.0-8.0); NEUTROPHILS # 3.7 10^3/uL (1.5-8.5); NEUTROPHILS % 51.9 % (36.0-66.0); PLATELET COUNT, AUTOMATED 201 10^3/uL (150-450); RED BLOOD COUNT 5.37 10^6/uL (4.30-6.10); WHITE BLOOD COUNT 7.1 10^3/uL (4.0-10.0)
[2021-12-29 17:27] LABS: ALBUMIN 3.9 GM/DL (3.2-5.2); ALT/SGPT 50 U/L (12-78); BILIRUBIN,TOTAL 0.6 MG/DL (0.2-1.0); BLOOD UREA NITROGEN 22 MG/DL (7-18); CALCIUM LEVEL 9.4 MG/DL (8.5-10.1); CARBON DIOXIDE LEVEL 28 MEQ/L (21-32); CHLORIDE LEVEL 106 MEQ/L (98-107); CHOLESTEROL LEVEL 214 MG/DL (<200); CHOLESTEROL RISK RATIO 5.944 (<5); CREATININE FOR GFR 1.24 MG/DL (0.70-1.30); FREE T4 1.02 NG/DL (0.76-1.46); GLOMERULAR FILTRATION RATE > 60.0 (>60); GLUCOSE, FASTING 99 MG/DL (70-100); HDL CHOLESTEROL 36 MG/DL (>40); IRON (FE) 83 UG/DL (65-175); LDL CHOLESTEROL 100 MG/DL (<100); NON-HDL-C 178 MG/DL; PERCENT SATURATION 29.1 % (19.7-50.0); POTASSIUM SERUM 4.4 MEQ/L (3.5-5.1); SODIUM LEVEL 140 MEQ/L (136-145); TOTAL IRON BINDING CAPACITY 285 UG/DL (250-450); TOTAL PROTEIN 7.1 GM/DL (6.4-8.2); TRIGLYCERIDES LEVEL 389 MG/DL (<150)
[2021-12-29 18:02] LABS: VITAMIN B12 LEVEL 549 PG/ML
[2021-12-29 18:03] LABS: FOLATE 10.9 NG/ML
[2021-12-31 18:09] LABS: PSA TOTAL 0.8 ng/mL (0.0-4.0); TESTOSTERONE FREE (DIRECT) 6.2 pg/mL (6.8-21.5)
== END ==
LOC: M WUC 13:11
PROVIDERS: ATTEND Nurse Practitioner Adult Health
DX: Z13.220 Encounter for screening for lipoid disorders (principal); Z13.228 Encounter for screening for other metabolic disorders; Z13.29 Encounter for screening for other suspected endocrine disorder; Z12.5 Encounter for screening for malignant neoplasm of prostate

== ENCOUNTER → 2022-04-10 | Outpatient (CLI) | payer OTHER ==
[~2022-04-10] MED LIST changes: -DOXY-342 PO; +DOXY100C81 PO
== END ==
LOC: M PAIN 14:15
PROVIDERS: ATTEND Nurse Practitioner Family
DX: M79.18 Myalgia, other site (principal); M54.6 Pain in thoracic spine; G89.29 Other chronic pain; R73.03 Prediabetes; M79.7 Fibromyalgia; Z86.59 Personal history of other mental and behavioral disorders; Z87.891 Personal history of nicotine dependence; Z79.84 Long term (current) use of oral hypoglycemic drugs; Z79.899 Other long term (current) drug therapy

== ENCOUNTER → 2022-05-11 | Outpatient (CLI) | payer OTHER | LOC: M PAIN 10:45 → M TMPAIN 10:45 | PROVIDERS: ATTEND Nurse Practitioner Family | DX: M79.18 Myalgia, other site (principal); M54.6 Pain in thoracic spine; G89.29 Other chronic pain; R73.03 Prediabetes; M79.7 Fibromyalgia; Z86.59 Personal history of other mental and behavioral disorders; Z87.891 Personal history of nicotine dependence; Z79.84 Long term (current) use of oral hypoglycemic drugs; Z79.899 Other long term (current) drug therapy ==

== ENCOUNTER → 2022-06-15 | Outpatient (CLI) | payer OTHER | LOC: M PAIN 14:45 | PROVIDERS: ATTEND Nurse Practitioner Family | DX: M79.18 Myalgia, other site (principal); M54.6 Pain in thoracic spine; G89.29 Other chronic pain; R73.03 Prediabetes; M79.7 Fibromyalgia; Z86.59 Personal history of other mental and behavioral disorders; Z87.891 Personal history of nicotine dependence; Z79.84 Long term (current) use of oral hypoglycemic drugs; Z79.899 Other long term (current) drug therapy ==

== ENCOUNTER 2022-06-30 11:21 | Emergency (ER) | payer OTHER ==
[~2022-06-30] VITALS: Ht 182.9 cm; Wt 102.3 kg
[2022-06-30] MEDS ORDERED: ISOVUE-370 76% 100ML VIAL As Ordered ONE (11:51)
[2022-06-30 12:00] VITALS: BP 150/90
[2022-06-30] MEDS ORDERED: IBUPROFEN 600MG TAB PO ONE (12:20)
[2022-06-30] MEDS ORDERED: METOCLOPRAMIDE INJ 10MG/2ML VIAL IV ONE (12:20)
[2022-06-30] MEDS ORDERED: ACETAMINOPHEN 500 MG TAB PO ONE (12:20)
[2022-06-30 12:22] LABS: BASO # 0.1 10^3/uL (0.0-0.2); BASO % 1.1 % (0.0-1.0); EOS # 0.1 10^3/uL (0.0-0.5); EOS % 1.9 % (0.0-3.0); HEMATOCRIT 44.9 % (42.0-52.0); HEMOGLOBIN 15.2 g/dl (13.5-17.5); LYMPH # 1.9 10^3/uL (1.5-5.0); LYMPH % 29.3 % (24.0-44.0); MEAN CORPUSCULAR HEMOGLOBIN 29.9 pg (27.0-33.0); MEAN CORPUSCULAR HGB CONC 33.9 g/dl (32.0-36.5); MEAN CORPUSCULAR VOLUME 88.2 fl (80.0-96.0); MONO # 0.4 10^3/uL (0.0-0.8); MONO % 6.6 % (2.0-8.0); NEUTROPHILS # 3.9 10^3/uL (1.5-8.5); NEUTROPHILS % 60.5 % (36.0-66.0); PLATELET COUNT, AUTOMATED 202 10^3/uL (150-450); RED BLOOD COUNT 5.09 10^6/uL (4.30-6.10); WHITE BLOOD COUNT 6.4 10^3/uL (4.0-10.0)
[2022-06-30 12:45] LABS: INR 0.89; PROTHROMBIN TIME 12.2 SECONDS (12.5-14.5)
[2022-06-30 12:46] LABS: PARTIAL THROMBOPLASTIN TIME 27.4 SECONDS (24.8-34.2)
[2022-06-30 12:52] LABS: CK-MB VALUE MASS < 1.0 NG/ML (<3.6); CPK CREATINE PHOSPHOKINASE 143 U/L (46-171); MB/CK RELATIVE INDEX 0.69 (< OR =4)
[2022-06-30 12:58] LABS: RSV AMPLIFICATION NEGATIVE (NEGATIVE)
[2022-06-30] MEDS ORDERED: MORPHINE 2 MG/ML 1ML VIAL IV ONE (13:35)
[2022-06-30] MEDS ORDERED: PERC5TAB12 PO (15:27)
[2022-06-30] MEDS ORDERED: REGL10TA6 PO (15:28)
[2022-06-30] MEDS ORDERED: PERCOCET 5MG/325MG TAB PO ONE (15:30)
[2022-06-30] MEDS ORDERED: oxyCODONE 5MG TAB PO ONE (16:10)
== END 2022-06-30 16:50 | disposition home or self-care (01) ==
LOC: M ED 11:21
DX: G43.909 Migraine, unspecified, not intractable, without status migrainosus (principal); I45.10 Unspecified right bundle-branch block; F41.9 Anxiety disorder, unspecified; K21.9 Gastro-esophageal reflux disease without esophagitis; Z79.1 Long term (current) use of non-steroidal anti-inflammatories (NSAID); Z79.891 Long term (current) use of opiate analgesic; Z79.899 Other long term (current) drug therapy
CPT/HCPCS: 70450; 70496; 70498; 70547; 70551; 71045; 80047; 82550; 82553; 84484; 85025; 85610; 85730; 86850; 86900; 86901; 87631; 93005; 93041; 94760; 96374; 99291; J2765

== ENCOUNTER → 2022-07-07 | Outpatient (CLI) | payer OTHER ==
[~2022-07-07] MED LIST changes: +BUPIVACAINE HCL 0.25% 10ML VIAL As Ordered ONE; +BUPIVACAINE HCL 0.25% 30ML VIAL As Ordered ONE; +PERC5TAB12 PO; +REGL10TA6 PO; +TRIAMCINOLONE ACETONIDE SUSP 40MG/ML 1ML VIAL As Ordered ONE; +diazePAM 5MG TABLET As Ordered ONE; +diphenhydrAMINE 25MG CAP As Ordered ONE; +oxyCODONE 5MG TAB As Ordered ONE
== END ==
LOC: M PAIN 15:00
PROVIDERS: ATTEND Anesthesiology
DX: M79.18 Myalgia, other site (principal); R73.03 Prediabetes; G47.30 Sleep apnea, unspecified; M79.7 Fibromyalgia; Z86.59 Personal history of other mental and behavioral disorders; Z87.891 Personal history of nicotine dependence; Z79.84 Long term (current) use of oral hypoglycemic drugs; Z79.899 Other long term (current) drug therapy
CPT/HCPCS: 20553; 87635; J3301; S0020

== ENCOUNTER → 2022-07-18 | Outpatient (CLI) | payer OTHER ==
[~2022-07-18] MED LIST changes: -BUPIVACAINE HCL 0.25% 10ML VIAL As Ordered ONE; -BUPIVACAINE HCL 0.25% 30ML VIAL As Ordered ONE; -TRIAMCINOLONE ACETONIDE SUSP 40MG/ML 1ML VIAL As Ordered ONE; -diazePAM 5MG TABLET As Ordered ONE; -diphenhydrAMINE 25MG CAP As Ordered ONE; -oxyCODONE 5MG TAB As Ordered ONE
== END ==
LOC: M PAIN 11:15
PROVIDERS: ATTEND Anesthesiology
DX: M54.2 Cervicalgia (principal); M54.6 Pain in thoracic spine; R73.03 Prediabetes; M79.7 Fibromyalgia; Z86.59 Personal history of other mental and behavioral disorders; Z87.891 Personal history of nicotine dependence; Z79.84 Long term (current) use of oral hypoglycemic drugs; Z79.899 Other long term (current) drug therapy

== ENCOUNTER → 2022-08-24 | Outpatient (CLI) | payer OTHER | LOC: M PAIN 16:30 | PROVIDERS: ATTEND Anesthesiology | DX: M54.6 Pain in thoracic spine (principal); M79.18 Myalgia, other site; G89.29 Other chronic pain; R73.03 Prediabetes; M79.7 Fibromyalgia; Z86.59 Personal history of other mental and behavioral disorders; Z87.891 Personal history of nicotine dependence; Z79.84 Long term (current) use of oral hypoglycemic drugs; Z79.899 Other long term (current) drug therapy ==

== ENCOUNTER → 2022-09-27 | Outpatient (CLI) | payer OTHER | LOC: M PAIN 16:15 | PROVIDERS: ATTEND Anesthesiology | DX: M54.2 Cervicalgia (principal); M54.6 Pain in thoracic spine; M79.18 Myalgia, other site; G89.29 Other chronic pain; M79.7 Fibromyalgia; K21.9 Gastro-esophageal reflux disease without esophagitis; Z86.59 Personal history of other mental and behavioral disorders; Z87.891 Personal history of nicotine dependence; Z79.899 Other long term (current) drug therapy ==

== ENCOUNTER → 2022-11-07 | Outpatient (CLI) | payer OTHER ==
[~2022-11-07] MED LIST changes: -DOXY100C81 PO; +DOXY100C82 PO
== END ==
LOC: M PAIN 16:30
PROVIDERS: ATTEND Anesthesiology
DX: M54.2 Cervicalgia (principal); M54.6 Pain in thoracic spine; M79.18 Myalgia, other site; E11.40 Type 2 diabetes mellitus with diabetic neuropathy, unspecified; M79.7 Fibromyalgia; K21.9 Gastro-esophageal reflux disease without esophagitis; Z86.59 Personal history of other mental and behavioral disorders; Z87.891 Personal history of nicotine dependence; Z79.84 Long term (current) use of oral hypoglycemic drugs; Z79.899 Other long term (current) drug therapy

== ENCOUNTER → 2022-11-24 | Outpatient (CLI) | payer OTHER ==
[~2022-11-24] MED LIST changes: +TRIAMCINOLONE ACETONIDE SUSP 40MG/ML 1ML VIAL As Ordered ONE; +diazePAM 5MG TABLET As Ordered ONE; +oxyCODONE 5MG TAB As Ordered ONE
== END ==
LOC: M PAIN 13:00
PROVIDERS: ATTEND Anesthesiology
DX: M79.18 Myalgia, other site (principal); G89.29 Other chronic pain; R73.03 Prediabetes; G47.30 Sleep apnea, unspecified; M79.7 Fibromyalgia; K21.9 Gastro-esophageal reflux disease without esophagitis; Z86.59 Personal history of other mental and behavioral disorders; Z87.891 Personal history of nicotine dependence; Z79.84 Long term (current) use of oral hypoglycemic drugs; Z79.899 Other long term (current) drug therapy
CPT/HCPCS: 20553; J3301; S0020

== ENCOUNTER → 2022-12-08 | Outpatient (CLI) | payer OTHER ==
[~2022-12-08] MED LIST changes: +PROHANCE 279.3MG/ML 15ML VIAL As Ordered ONE; +PROHANCE 279.3MG/ML 5ML VIAL As Ordered ONE; -TRIAMCINOLONE ACETONIDE SUSP 40MG/ML 1ML VIAL As Ordered ONE; -diazePAM 5MG TABLET As Ordered ONE; -oxyCODONE 5MG TAB As Ordered ONE
== END ==
LOC: M RAD 13:55
PROVIDERS: ATTEND Registered Nurse
DX: R22.42 Localized swelling, mass and lump, left lower limb (principal)

== ENCOUNTER → 2022-12-08 | Outpatient (CLI) | payer OTHER ==
[~2022-12-08] MED LIST changes: -PROHANCE 279.3MG/ML 15ML VIAL As Ordered ONE; -PROHANCE 279.3MG/ML 5ML VIAL As Ordered ONE
== END ==
LOC: M RAD 13:53
PROVIDERS: ATTEND Anesthesiology
DX: M54.2 Cervicalgia (principal)

== ENCOUNTER → 2023-01-03 | Outpatient (CLI) | payer OTHER | LOC: M PAIN 12:30 | PROVIDERS: ATTEND Anesthesiology | DX: M79.18 Myalgia, other site (principal); E11.40 Type 2 diabetes mellitus with diabetic neuropathy, unspecified; G47.30 Sleep apnea, unspecified; M79.7 Fibromyalgia; Z86.59 Personal history of other mental and behavioral disorders; Z87.891 Personal history of nicotine dependence; Z79.84 Long term (current) use of oral hypoglycemic drugs; Z79.899 Other long term (current) drug therapy ==

== ENCOUNTER 2023-03-23 13:12 | Day surgery (SDC) | payer OTHER ==
[~2023-03-23] VITALS: Ht 180.3 cm; Wt 105.6 kg
[~2023-03-23 13:12] MED LIST changes: +ALPR1TAB3; +DICY-61; +DULO1CAP6; +LEVAINH INH; +METF500T13 PO; +METH1CAP5; +NS 1,000 ML IV ONE; +PANT40TA29; +PREG200C2; +PROP20TA72; +[UNRECOGNIZED DRUG - CODE] MC
[2023-03-23] MEDS ORDERED: propofoL 200 MG/20 ML VIAL As Ordered ONE ×2 (15:04→15:22)
[2023-03-23] MEDS ORDERED: fentaNYL 100 MCG/2 ML INJECTION As Ordered ONE (15:04)
[2023-03-23] MEDS ORDERED: LIDOCAINE 2% 100MG/5ML SDV (FOR ANES.) As Ordered ONE (15:04)
[2023-03-23 15:32] VITALS: TEMP 96.6
[2023-03-23 15:45] VITALS: BP 132/79; O2SAT 98
== END 2023-03-23 15:54 | disposition home or self-care (01) ==
LOC: M OPP 13:12
PROVIDERS: ATTEND Internal Medicine Gastroenterology
DX: R19.4 Change in bowel habit (principal); K64.8 Other hemorrhoids; K30 Functional dyspepsia; K21.9 Gastro-esophageal reflux disease without esophagitis; R11.2 Nausea with vomiting, unspecified; J45.909 Unspecified asthma, uncomplicated; G47.30 Sleep apnea, unspecified; Z79.899 Other long term (current) drug therapy; Z79.84 Long term (current) use of oral hypoglycemic drugs; Z87.891 Personal history of nicotine dependence
CPT/HCPCS: 43239; 45380; 88305; J3010

== ENCOUNTER → 2023-06-23 | Outpatient (CLI) | payer OTHER ==
[~2023-06-23] MED LIST changes: -NS 1,000 ML IV ONE
[2023-06-23 12:00] LABS: HEMATOCRIT 41.1 % (42.0-52.0); HEMOGLOBIN 14.1 g/dl (13.5-17.5); MEAN CORPUSCULAR HEMOGLOBIN 29.9 pg (27.0-33.0); MEAN CORPUSCULAR HGB CONC 34.3 g/dl (32.0-36.5); MEAN CORPUSCULAR VOLUME 87.3 fl (80.0-96.0); PLATELET COUNT, AUTOMATED 180 10^3/uL (150-450); RED BLOOD COUNT 4.71 10^6/uL (4.30-6.10); WHITE BLOOD COUNT 6.8 10^3/uL (4.0-10.0)
[2023-06-23 12:13] LABS: HEMOGLOBIN A1c 5.4 % (4.0-6.0)
[2023-06-23 12:23] LABS: ALBUMIN 3.8 G/DL (3.2-5.2); ALKALINE PHOSPHATASE 61 U/L (46-116); ALT/SGPT 33 U/L (7.0-40); AST/SGOT 23 U/L (<34); BILIRUBIN,TOTAL 0.4 MG/DL (0.3-1.2); BLOOD UREA NITROGEN 15 MG/DL (9-23); CALCIUM LEVEL 8.8 MG/DL (8.5-10.1); CARBON DIOXIDE LEVEL 28 MMOL/L (20-31); CHLORIDE LEVEL 109 MMOL/L (98-107); CHOLESTEROL LEVEL 234 MG/DL (<200); CHOLESTEROL RISK RATIO 8.76 (<5); CREATININE FOR GFR 1.02 MG/DL (0.70-1.30); GLOMERULAR FILTRATION RATE > 60.0 (>60); GLUCOSE, FASTING 98 MG/DL (60-100); HDL CHOLESTEROL 26.7 MG/DL (>40); NON-HDL-C 207.3 MG/DL; POTASSIUM SERUM 4.3 MMOL/L (3.5-5.1); SODIUM LEVEL 141 MMOL/L (136-145); TOTAL PROTEIN 6.4 G/DL (5.7-8.2); TRIGLYCERIDES LEVEL 693 MG/DL (<150)
[2023-06-23 12:27] LABS: TOTAL 25(OH) VITAMIN D 35.3 NG/ML (20.0-100.0)
== END ==
LOC: M LAB 11:21
PROVIDERS: ATTEND Registered Nurse
DX: Z00.00 Encounter for general adult medical examination without abnormal findings (principal)

== ENCOUNTER → 2023-07-06 | Outpatient (CLI) | payer OTHER ==
[~2023-07-06] MED LIST changes: +BOTOX THERAPEUTIC 100 UNIT VIAL IM ONE
== END ==
LOC: M PAIN 10:00
PROVIDERS: ATTEND Anesthesiology
DX: M79.18 Myalgia, other site (principal); G89.29 Other chronic pain; K21.9 Gastro-esophageal reflux disease without esophagitis; F40.01 Agoraphobia with panic disorder; F41.9 Anxiety disorder, unspecified; K58.9 Irritable bowel syndrome, unspecified; G62.9 Polyneuropathy, unspecified; M72.2 Plantar fascial fibromatosis; F32.A Depression, unspecified; Z87.891 Personal history of nicotine dependence; Z79.84 Long term (current) use of oral hypoglycemic drugs; Z79.891 Long term (current) use of opiate analgesic; Z79.899 Other long term (current) drug therapy
CPT/HCPCS: 20552; J0585

== ENCOUNTER → 2023-08-21 | Outpatient (CLI) | payer OTHER ==
[~2023-08-21] MED LIST changes: -BOTOX THERAPEUTIC 100 UNIT VIAL IM ONE; +TIZA4CAP3 PO; -TIZA4CAP6 PO
== END ==
LOC: M PAIN 17:30
PROVIDERS: ATTEND Nurse Practitioner Family
DX: M79.10 Myalgia, unspecified site (principal); M54.2 Cervicalgia; M25.511 Pain in right shoulder; M25.512 Pain in left shoulder; G47.30 Sleep apnea, unspecified; Z99.89 Dependence on other enabling machines and devices; Z87.891 Personal history of nicotine dependence; Z79.51 Long term (current) use of inhaled steroids; Z79.84 Long term (current) use of oral hypoglycemic drugs; Z79.891 Long term (current) use of opiate analgesic; Z79.899 Other long term (current) drug therapy

== ENCOUNTER → 2023-08-21 | Outpatient (CLI) | payer OTHER ==
[~2023-08-21] MED LIST changes: -TIZA4CAP3 PO; +TIZA4CAP6 PO
[2023-08-21 15:09] LABS: ALBUMIN 4.4 G/DL (3.2-5.2); ALKALINE PHOSPHATASE 49 U/L (46-116); ALT/SGPT 37 U/L (7.0-40); AST/SGOT 24 U/L (<34); BILIRUBIN,TOTAL 0.7 MG/DL (0.3-1.2); BLOOD UREA NITROGEN 20 MG/DL (9-23); CALCIUM LEVEL 9.8 MG/DL (8.5-10.1); CARBON DIOXIDE LEVEL 27 MMOL/L (20-31); CHLORIDE LEVEL 112 MMOL/L (98-107); CHOLESTEROL LEVEL 219 MG/DL (<200); CHOLESTEROL RISK RATIO 6.61 (<5); GLOMERULAR FILTRATION RATE > 60.0 (>60); GLUCOSE, FASTING 104 MG/DL (60-100); HDL CHOLESTEROL 33.1 MG/DL (>40); LDL CHOLESTEROL 127.1 MG/DL (<100); NON-HDL-C 185.9 MG/DL; POTASSIUM SERUM 4.3 MMOL/L (3.5-5.1); SODIUM LEVEL 141 MMOL/L (136-145); TOTAL PROTEIN 7.1 G/DL (5.7-8.2); TRIGLYCERIDES LEVEL 294 MG/DL (<150)
[2023-08-21 15:10] LABS: THYROID STIMULATING HORMONE 4.458 uIU/ML (0.55-4.78)
[2023-08-21 15:11] LABS: FREE T4 1.46 NG/DL (0.89-1.76)
[2023-08-21 15:13] LABS: FREE T3 3.7 PG/ML (2.3-4.2)
== END ==
LOC: M LAB 14:16
PROVIDERS: ATTEND Registered Nurse
DX: E78.2 Mixed hyperlipidemia (principal); R53.83 Other fatigue; M79.7 Fibromyalgia; R41.840 Attention and concentration deficit

== ENCOUNTER → 2023-09-19 | Outpatient (CLI) | payer OTHER ==
[~2023-09-19] MED LIST changes: +TIZA4CAP3 PO; -TIZA4CAP6 PO
== END ==
LOC: M PAIN 16:00
PROVIDERS: ATTEND Anesthesiology
DX: M47.812 Spondylosis without myelopathy or radiculopathy, cervical region (principal); M79.7 Fibromyalgia; K21.9 Gastro-esophageal reflux disease without esophagitis; F40.01 Agoraphobia with panic disorder; K58.9 Irritable bowel syndrome, unspecified; G62.9 Polyneuropathy, unspecified; M72.2 Plantar fascial fibromatosis; F32.A Depression, unspecified; Z87.891 Personal history of nicotine dependence; Z79.84 Long term (current) use of oral hypoglycemic drugs; Z79.891 Long term (current) use of opiate analgesic; Z79.899 Other long term (current) drug therapy

== ENCOUNTER 2023-10-12 17:16 | Emergency (ER) | payer OTHER ==
[~2023-10-12] VITALS: Ht 182.9 cm; Wt 107.0 kg
[2023-10-12 17:16] VITALS: BP 128/78; TEMP 98.4; O2SAT 98
[2023-10-12] MEDS ORDERED: CEPH500T PO (21:54)
[2023-10-12] MEDS: CEPHALEXIN 500 MG CAP PO ONE (22:15)
[2023-10-12] MEDS: BOOSTRIX VACCINE (TETANUS/DIPHTH/ACEL. PERTUSSIS) 0.5ML SYR IM ONE (22:16)
[2023-10-12] MEDS: LIDOCAINE 1% MDV 20ML VIAL SC ONE (22:19)
== END 2023-10-12 22:26 | disposition home or self-care (01) ==
LOC: M ED 17:16
DX: S61.311A Laceration without foreign body of left index finger with damage to nail, initial encounter (principal); W26.0XXA Contact with knife, initial encounter; J45.909 Unspecified asthma, uncomplicated; K58.9 Irritable bowel syndrome, unspecified; R51.9 Headache, unspecified; Y92.009 Unspecified place in unspecified non-institutional (private) residence as the place of occurrence of the external cause; Y93.89 Activity, other specified; Y99.9 Unspecified external cause status; Z79.2 Long term (current) use of antibiotics; Z79.899 Other long term (current) drug therapy; Z23 Encounter for immunization

== ENCOUNTER → 2023-10-16 | Outpatient (CLI) | payer OTHER ==
[~2023-10-16] MED LIST changes: +CEPH500T PO; +ISOVUE-M 300 61% 15ML VIAL As Ordered ONE; +LIDOCAINE 1% SDV 30ML VIAL As Ordered ONE
== END ==
LOC: M PAIN 13:00
PROVIDERS: ATTEND Anesthesiology
DX: M47.812 Spondylosis without myelopathy or radiculopathy, cervical region (principal); G89.29 Other chronic pain; M79.7 Fibromyalgia; K21.9 Gastro-esophageal reflux disease without esophagitis; F40.01 Agoraphobia with panic disorder; F41.9 Anxiety disorder, unspecified; K58.9 Irritable bowel syndrome, unspecified; G62.9 Polyneuropathy, unspecified; M72.2 Plantar fascial fibromatosis; M25.512 Pain in left shoulder; F32.A Depression, unspecified; Z87.891 Personal history of nicotine dependence; Z79.84 Long term (current) use of oral hypoglycemic drugs; Z79.891 Long term (current) use of opiate analgesic; Z79.899 Other long term (current) drug therapy
CPT/HCPCS: 64490; 64491; J0665; Q9967

== ENCOUNTER → 2023-11-05 | Outpatient (CLI) | payer OTHER ==
[~2023-11-05] MED LIST changes: -ISOVUE-M 300 61% 15ML VIAL As Ordered ONE; -LIDOCAINE 1% SDV 30ML VIAL As Ordered ONE; +ONDA-282 PO; -ONDA4TAB6 PO
== END ==
LOC: M PAIN 15:30
PROVIDERS: ATTEND Nurse Practitioner Family
DX: M47.812 Spondylosis without myelopathy or radiculopathy, cervical region (principal); G89.29 Other chronic pain; M79.7 Fibromyalgia; K21.9 Gastro-esophageal reflux disease without esophagitis; F40.01 Agoraphobia with panic disorder; Z87.891 Personal history of nicotine dependence; Z79.84 Long term (current) use of oral hypoglycemic drugs; Z79.891 Long term (current) use of opiate analgesic; Z79.899 Other long term (current) drug therapy

== ENCOUNTER → 2024-01-02 | Outpatient (CLI) | payer OTHER | LOC: M PAIN 14:15 | PROVIDERS: ATTEND Anesthesiology | DX: M50.10 Cervical disc disorder with radiculopathy, unspecified cervical region (principal); M48.02 Spinal stenosis, cervical region; M79.7 Fibromyalgia; Z79.1 Long term (current) use of non-steroidal anti-inflammatories (NSAID); Z79.51 Long term (current) use of inhaled steroids; Z79.52 Long term (current) use of systemic steroids; Z79.84 Long term (current) use of oral hypoglycemic drugs; Z79.899 Other long term (current) drug therapy ==

== ENCOUNTER → 2024-01-10 | Outpatient (CLI) | payer OTHER ==
[~2024-01-10] MED LIST changes: +ISOVUE-M 300 61% 15ML VIAL As Ordered ONE; +LIDOCAINE 1% SDV 30ML VIAL As Ordered ONE; +TRIAMCINOLONE ACETONIDE SUSP 40MG/ML 1ML VIAL As Ordered ONE
== END ==
LOC: M PAIN 14:00
PROVIDERS: ATTEND Anesthesiology
DX: M47.812 Spondylosis without myelopathy or radiculopathy, cervical region (principal); G89.29 Other chronic pain; M79.7 Fibromyalgia; K21.9 Gastro-esophageal reflux disease without esophagitis; F40.01 Agoraphobia with panic disorder; K58.9 Irritable bowel syndrome, unspecified; G62.9 Polyneuropathy, unspecified; M72.2 Plantar fascial fibromatosis; F32.A Depression, unspecified; R73.03 Prediabetes; Z87.891 Personal history of nicotine dependence; Z79.84 Long term (current) use of oral hypoglycemic drugs; Z79.891 Long term (current) use of opiate analgesic; Z79.899 Other long term (current) drug therapy
CPT/HCPCS: 64490; 64491; J0665; J3301; Q9967

== ENCOUNTER → 2024-02-29 | Outpatient (CLI) | payer OTHER ==
[~2024-02-29] MED LIST changes: +GABA-1490 PO; -GABA600T4 PO; -TRIAMCINOLONE ACETONIDE SUSP 40MG/ML 1ML VIAL As Ordered ONE; +dexAMETHasone 10MG/1ML VIAL PRES.FREE As Ordered ONE; +diazePAM 5MG TABLET As Ordered ONE; +oxyCODONE 5MG TAB As Ordered ONE
== END ==
LOC: M PAIN 14:35
PROVIDERS: ATTEND Anesthesiology
DX: M50.10 Cervical disc disorder with radiculopathy, unspecified cervical region (principal); G89.29 Other chronic pain; M79.7 Fibromyalgia; K21.9 Gastro-esophageal reflux disease without esophagitis; F40.01 Agoraphobia with panic disorder; K58.9 Irritable bowel syndrome, unspecified; M72.2 Plantar fascial fibromatosis; F32.A Depression, unspecified; Z87.891 Personal history of nicotine dependence; Z79.84 Long term (current) use of oral hypoglycemic drugs; Z79.891 Long term (current) use of opiate analgesic; Z79.899 Other long term (current) drug therapy
CPT/HCPCS: 62321; J1100; Q9967

== ENCOUNTER → 2024-03-31 | Outpatient (CLI) | payer OTHER ==
[~2024-03-31] MED LIST changes: -ISOVUE-M 300 61% 15ML VIAL As Ordered ONE; +LEVA15HF2 INH; -LEVAINH INH; -LIDOCAINE 1% SDV 30ML VIAL As Ordered ONE; -dexAMETHasone 10MG/1ML VIAL PRES.FREE As Ordered ONE; -diazePAM 5MG TABLET As Ordered ONE; -oxyCODONE 5MG TAB As Ordered ONE
== END ==
LOC: M PAIN 17:00
PROVIDERS: ATTEND Nurse Practitioner Family
DX: M47.812 Spondylosis without myelopathy or radiculopathy, cervical region (principal); M50.10 Cervical disc disorder with radiculopathy, unspecified cervical region; G89.29 Other chronic pain; M79.7 Fibromyalgia; K21.9 Gastro-esophageal reflux disease without esophagitis; F40.01 Agoraphobia with panic disorder; K58.9 Irritable bowel syndrome, unspecified; G62.9 Polyneuropathy, unspecified; M72.2 Plantar fascial fibromatosis; M25.512 Pain in left shoulder; M54.6 Pain in thoracic spine; F32.A Depression, unspecified; R73.03 Prediabetes; Z87.891 Personal history of nicotine dependence; Z79.84 Long term (current) use of oral hypoglycemic drugs; Z79.899 Other long term (current) drug therapy

== ENCOUNTER → 2024-08-04 | Outpatient (CLI) | payer OTHER ==
[~2024-08-04] MED LIST changes: +CARI-555 PO; -CARI1TAB7 PO
== END ==
LOC: M LAB 11:21
PROVIDERS: ATTEND Anesthesiology Pain Medicine
DX: E29.1 Testicular hypofunction (principal)

== ENCOUNTER → 2024-08-04 | Outpatient (CLI) | payer OTHER ==
[~2024-08-04] MED LIST changes: +DOXY-442 PO; -DOXY100C82 PO
[2024-08-04 12:09] LABS: BASO # 0.1 10^3/uL (0.0-0.2); BASO % 0.9 % (0.0-1.0); EOS # 0.1 10^3/uL (0.0-0.5); EOS % 1.8 % (0.0-3.0); HEMATOCRIT 52.1 % (42.0-52.0); HEMOGLOBIN 17.6 g/dl (13.5-17.5); LYMPH % 29.3 % (24.0-44.0); MEAN CORPUSCULAR HEMOGLOBIN 28.9 pg (27.0-33.0); MEAN CORPUSCULAR HGB CONC 33.8 g/dl (32.0-36.5); MEAN CORPUSCULAR VOLUME 85.4 fl (80.0-96.0); MONO # 0.6 10^3/uL (0.0-0.8); MONO % 9.2 % (2.0-8.0); NEUTROPHILS # 3.9 10^3/uL (1.5-8.5); NEUTROPHILS % 58.4 % (36.0-66.0); PLATELET COUNT, AUTOMATED 195 10^3/uL (150-450); WHITE BLOOD COUNT 6.8 10^3/uL (4.0-10.0)
[2024-08-04 12:29] LABS: HEMOGLOBIN A1c 5.3 % (4.0-6.0)
[2024-08-04 12:36] LABS: ALKALINE PHOSPHATASE 51 U/L (40-129); ALT/SGPT 31 U/L (7.0-40); AST/SGOT 30 U/L (<34); BLOOD UREA NITROGEN 15 MG/DL (9-23); CALCIUM LEVEL 9.3 MG/DL (8.5-10.1); CARBON DIOXIDE LEVEL 29 MMOL/L (20-31); CHLORIDE LEVEL 107 MMOL/L (98-107); CHOLESTEROL LEVEL 185 MG/DL (<200); CHOLESTEROL RISK RATIO 8.29 (<5); CREATININE FOR GFR 1.12 MG/DL (0.70-1.30); GLOMERULAR FILTRATION RATE > 60.0 (>60); GLUCOSE, FASTING 90 MG/DL (60-100); HDL CHOLESTEROL 22.3 MG/DL (>40); LDL CHOLESTEROL 88.1 MG/DL (<100); NON-HDL-C 162.7 MG/DL; POTASSIUM SERUM 4.3 MMOL/L (3.5-5.1); SODIUM LEVEL 143 MMOL/L (136-145); TOTAL PROTEIN 7.2 G/DL (5.7-8.2); TRIGLYCERIDES LEVEL 373 MG/DL (<150)
== END ==
LOC: M LAB 11:19
PROVIDERS: ATTEND Registered Nurse
DX: Z00.00 Encounter for general adult medical examination without abnormal findings (principal); E78.2 Mixed hyperlipidemia

== ENCOUNTER → 2025-03-31 | Outpatient (REF) | payer OTHER ==
[2025-03-31 13:38] LABS: PLATELET COUNT, AUTOMATED 202 10^3/uL (150-450)
== END ==
LOC: M SFHCADAM 09:52
PROVIDERS: ATTEND Nurse Practitioner Family
DX: E29.1 Testicular hypofunction (principal)